=== PATIENT | male | born 1995 | race Caucasian/White ===

== ENCOUNTER 2017-01-01 22:17 | Emergency (ER) | payer MEDICAID ==
[2016-05-22 08:55] VITALS: BMI 25.1
[~2017-01-01 22:17] MED LIST: HYDROCODONE-APA1 TAB PO; SOMA350 MG PO
== END 2017-01-01 22:18 | disposition home or self-care (01) ==
LOC: D.ER 22:17
DX: S91.331A Puncture wound without foreign body, right foot, initial encounter (principal); W45.0XXA Nail entering through skin, initial encounter; Y93.89 Activity, other specified; Y92.019 Unspecified place in single-family (private) house as the place of occurrence of the external cause

== ENCOUNTER 2017-01-21 13:31 | Emergency (ER) | payer MEDICAID ==
[2016-05-22 08:55] VITALS: BMI 25.1
== END 2017-01-21 15:13 | disposition home or self-care (01) ==
LOC: D.ER 13:31
DX: F32.9 Major depressive disorder, single episode, unspecified (principal); F41.9 Anxiety disorder, unspecified; F17.200 Nicotine dependence, unspecified, uncomplicated

== ENCOUNTER 2017-01-23 19:54 | Emergency (ER) | payer MEDICAID ==
[2016-05-22 08:55] VITALS: BMI 25.1
[2017-01-23 20:48] LABS: APPEARANCE CLEAR (CLEAR); BILIRUBIN NEGATIVE (NEGATIVE); COLOR YELLOW (YELLOW); GLUCOSE NEGATIVE (NEGATIVE); KETONE NEGATIVE (NEGATIVE); LEUKOCYTE ESTERASE NEGATIVE (NEGATIVE); NITRITE NEGATIVE (NEGATIVE); PROTEIN NEGATIVE (NEGATIVE); UROBILINOGEN NORMAL (NORMAL)
[2017-01-23 21:03] LABS: UDS - AMPHET NEGATIVE QUAL (NEGATIVE); UDS - BARB NEGATIVE QUAL (NEGATIVE); UDS - BENZO NEGATIVE QUAL (NEGATIVE); UDS - COCAINE NEGATIVE QUAL (NEGATIVE); UDS - METH NEGATIVE QUAL (NEGATIVE); UDS - OPIATE NEGATIVE QUAL (NEGATIVE); UDS - PCP NEGATIVE QUAL (NEGATIVE); UDS - THC POSITIVE QUAL (NEGATIVE)
[2017-01-23 21:05] LABS: BASOPHILS 0.4 % (0-2); EOSINOPHILS 2.7 % (0-7); HEMATOCRIT 47.1 % (42.0-54.0); HEMOGLOBIN 16.2 g/dL (13.5-17.5); IMMATURE GRANULOCYTES 0.4 % (0-5); LYMPHOCYTES 26.8 % (15-50); MCH 32.5 pg (26.0-34.0); MCHC 34.4 g/dL (31.0-37.0); MCV 94.4 fL (80.0-100.0); MEAN PLATELET VOLUME 11.3 fL (7.4-10.4); MONOCYTES 8.3 % (2-11); NEUTROPHILS 61.4 % (40-80); PLATELET COUNT 251 10x3/uL (130-400); RBC 4.99 10x6/uL (4.20-6.10); RDW 11.6 % (11.5-14.5)
[2017-01-23 21:28] LABS: ALBUMIN 4.5 g/dL (3.4-5.0); ALKALINE PHOSPHATASE 94 U/L (46-116); ALT (SGPT) 33 U/L (10-68); BILIRUBIN - TOTAL 0.37 mg/dL (0.2-1.3); CALC OSMOLALITY 284 mosm/kg (275-300); CALCIUM 9.4 mg/dL (8.5-10.1); CARBON DIOXIDE 27.2 mmol/L (21.0-32.0); CHLORIDE - SERUM 108 mmol/L (98-107); GLUCOSE 92 mg/dL (74-106); POTASSIUM - SERUM 4.5 mmol/L (3.5-5.1); SODIUM 143 mmol/L (136-145); UREA NITROGEN 12 mg/dL (7-18); eGFR NON AFRICAN AMERICAN > 90 mL/min (90-120)
== END 2017-01-24 06:46 ==
LOC: D.ER 19:54
PROVIDERS: Family Medicine
DX: R45.851 Suicidal ideations (principal); T14.91 Suicide attempt; T43.592A Poisoning by other antipsychotics and neuroleptics, intentional self-harm, initial encounter; Y92.89 Other specified places as the place of occurrence of the external cause; Y93.89 Activity, other specified

== ENCOUNTER 2019-09-01 08:06 | Inpatient (IN) | payer MEDICAID ==
[2019-09-01] VITALS (17 sets, daily range): BP systolic 122–149; BP diastolic 60–86; BMI 22.9
[~2019-09-01] VITALS: Ht 182.9 cm; Wt 66.6 kg
[2019-09-01 08:38] LABS: BASOPHILS 0.2 % (0-2); EOSINOPHILS 1.1 % (0-7); HEMATOCRIT 42.8 % (42.0-54.0); HEMOGLOBIN 14.3 g/dL (13.5-17.5); IMMATURE GRANULOCYTES 0.2 % (0-5); LYMPHOCYTES 9.9 % (15-50); MCH 32.4 pg (26.0-34.0); MCHC 33.4 g/dL (31.0-37.0); MCV 96.8 fL (80.0-100.0); MEAN PLATELET VOLUME 11.2 fL (7.4-10.4); MONOCYTES 6.5 % (2-11); NEUTROPHILS 82.1 % (40-80); PLATELET COUNT 234 10x3/uL (130-400); RBC 4.42 10x6/uL (4.20-6.10); RDW 12.3 % (11.5-14.5); WBC 17.2 10x3/uL (4.8-10.8)
[2019-09-01 08:39] LABS: APPEARANCE CLEAR (CLEAR); BILIRUBIN NEGATIVE (NEGATIVE); COLOR YELLOW (YELLOW); GLUCOSE NEGATIVE (NEGATIVE); KETONE NEGATIVE (NEGATIVE); NITRITE NEGATIVE (NEGATIVE); PROTEIN NEGATIVE (NEGATIVE); UROBILINOGEN NORMAL (NORMAL)
[2019-09-01 08:45] LABS: UDS - AMPHET NEGATIVE QUAL (NEGATIVE); UDS - BARB NEGATIVE QUAL (NEGATIVE); UDS - BENZO POSITIVE QUAL (NEGATIVE); UDS - COCAINE POSITIVE QUAL (NEGATIVE); UDS - OPIATE NEGATIVE QUAL (NEGATIVE); UDS - PCP NEGATIVE QUAL (NEGATIVE); UDS - THC POSITIVE QUAL (NEGATIVE)
--- NOTE | 2019-09-01 08:51 | NUR ---
[facility] [employer] CONTACTED, THEY ADVISED TO USE ACTIVATED CHARCOAL AT MD DISCRETION, THEY LEANED TOWARDS NOT USING IT DUE TO RISK OF ASPIRATION. DR. DONAHUE NOTIFIED.
[2019-09-01 08:52] LABS: CALC OSMOLALITY 285 mosm/kg (275-300); CARBON DIOXIDE 28.4 mmol/L (21.0-32.0); CHLORIDE - SERUM 107 mmol/L (98-107); CREATININE - SERUM 0.7 mg/dL (0.6-1.3); GLUCOSE 96 mg/dL (74-106); POTASSIUM - SERUM 4.3 mmol/L (3.5-5.1); SODIUM 143 mmol/L (136-145); UREA NITROGEN 14 mg/dL (7-18); eGFR NON AFRICAN AMERICAN > 90 mL/min (90-120)
--- NOTE | 2019-09-01 08:59 | NUR ---
PT IS VERY LETHARGIC. UNABLE TO ASSESS. WILL ATTEMPT TO ASSESS WHEN PT IS MORE ALERT AND ABLE TO ANSWER QUESTIONS.
--- NOTE | 2019-09-01 09:05 | NUR ---
PATIENT WITH SNORING RESPIRATIONS, RESPONDS TO STERNAL RUB WITH MOAN. DR. DONAHUE AT BEDSIDE, PATIENT PREPAIRED FOR INTUBATION. PATIENT SEDATED, ORALLY INTUBATED WITH 7.5MM ETT, PLACEMENT VERIFIED WITH CO2 DETECTOR AND AUSCULATION, CLEAR AND EQUAL BREATH SOUNDS NOTED. ETT TO MECHANICAL VENTILATION WITH INLINE SUCTION. OG TUBE PLACED, VERIFIED WITH 20CC AIRBOLAS, 16FR MARIE CATH PLACED IN BLADDER TO GRAVITY DRAIN, YELLOW URINE RETURN NOTED. DIPROVAN DRIP STARTED FOR SEDATION.
[2019-09-01 09:06] LABS: ALKALINE PHOSPHATASE 78 U/L (46-116); ALT (SGPT) 25 U/L (10-68); AMYLASE - SERUM 49 U/L (25-115); BILIRUBIN - TOTAL 0.43 mg/dL (0.2-1.3); CKMB 2.2 U/L (0.0-3.6); CREATINE KINASE 175 UL (21-232); LIPASE 143 U/L (73-393); MAGNESIUM - SERUM 1.9 mg/dL (1.8-2.4); PROTEIN - SERUM 6.7 g/dL (6.4-8.2)
[2019-09-01 09:08] LABS: TROPONIN-I < 0.017 ng/mL (0.000-0.060)
--- NOTE | 2019-09-01 09:45 | NUR ---
PATIENTS GRANDMOTHER AND AUNT AT BEDSIDE. BOTH LEFT CONTACT NUMBERS WHERE THEY CAN BE REACHED. BANDAR ALMEIDA- GRANDMOTHER [phone] KIKI BAUTISTA- AUNT [phone]
--- NOTE | 2019-09-01 11:30 | NUR ---
REC'D VIA STRETCHER FROM ER NURSE, TRANSFERRED TO ICU BED, ETT IN PLACE AND SECURED, VENT SET TO 60% FIO2, SAT 100%, OGT CLAMPED, PLACE MWNT DCHECED WIT AIR INSUFFLATION, LEFT AC PIV WITH NS AT 200 CC/HR AND PROPOFAL AT 0 MCG, MARIE TO GRAVITY WITH YELLOW DRAINAGE TO BAG, B/L SCD'S PLACED, B/L SOFT WRIST RESTRAINTS IN USE, ASSESSMENT COMPLETED PER FLOWSHEET, AROUSES TO TACTILE STIMULI, VSS, ORAL CARE AND SUCTION COMPLETED, WILL CONTINUE WITH POC.
--- NOTE | 2019-09-01 13:03 | NUR ---
RECIEVED PT FROM CHARGE NURSE. VSS AND WNL. PT SEDATED BUT RESPONDS TO PAINFUL STIMULI. PT INTUBATED AND ON 50%. CRISTELA WRIST RESTRAINTS NOTED. BED ALARM ON. WILL CONT TO FOLLOW POC
--- NOTE | 2019-09-01 13:06 | NUR ---
SCD'D PLACED PER DVT PROTOCAL
--- NOTE | 2019-09-01 15:00 | NUR ---
PT RESTING IN BED, CRISTELA WRIST RESTRAINTS NOTED. PT RESPONDS TO PAINFUL STIMULI. VSS AND WNL. PT ON ASSIST CONTROL VENTILATION. WILL CONT TO FOLLOW POC
--- NOTE | 2019-09-01 17:00 | NUR ---
PT RESTING IN BED, VSS AND WNL. BED ALARM ON. CRISTELA WRIST RESTRAINTS IN PLACE. PT REPOSITIONED. NO SIGNS OF DISTRESS NOTED. WILL CONT TO FOLLOW POC
--- NOTE | 2019-09-01 17:15 | MORECARE ---
CASE MANAGEMENT DISCHARGE SUMMARY PATIENT: KAREN ALMEIDA UNIT: [id number] ADM DATE: 09/01/19 AGE: 23 : [birth year] SEX: M ROOM/BED: D.2307 AUTHOR: JAZMINE RODRIGUEZ PHYSICIAN: REFERRING PHYSICIAN: AJITH THOMSON MD DATE OF SERVICE: 09/01/19 Discharge Plan Patient Name: KAREN ALMEIDA [facility] [facility] 1995 Planned Disposition: Anticipated Discharge Date: Discharge Date: Expected LOS: Initial Reviewer: [email or web address] Initial Review Date: 09/01/2019 Generated: 09/01/19 6:15 pm Comments DCP- Discharge Planning Updated by [email or web address]: Darline Wallace on 09/01/19 4:[address] Patient is sedated on vent after a suicide attempt. CM unable to evaluate for d/c planning @ this time. No family available at this time. Patient will most likely need inpatient psych placement once able to evaluate and medically stable for discharge. CM will continue to follow and assist as needed with discharge planning / needs. Patient Name: KAREN ALMEIDA Page [phone] at 1710 All edits/amendments must be made on the electronic document DICTATION DATE: 09/01/191714 DUE DILIGENCE COORDINATOR: JACK 09/01/191714 RPT#: [id number] DC DATE: STATUS: ADM IN [facility] [address] [place] [address] END OF REPORT
--- NOTE | 2019-09-01 19:00 | NUR ---
SHIFT ASSESSMENT COMPLETE. VS STABLE. NO VISUAL CUES OF DISTRESS NOTED. WILL CONTINUE TO MONITOR.
[2019-09-02] VITALS (24 sets, daily range): BP systolic 99–139; BP diastolic 48–84; BMI 22.9
[2019-09-02 04:26] LABS: BASOPHILS 0.2 % (0-2); EOSINOPHILS 0.6 % (0-7); HEMATOCRIT 41.5 % (42.0-54.0); HEMOGLOBIN 13.5 g/dL (13.5-17.5); IMMATURE GRANULOCYTES 0.3 % (0-5); LYMPHOCYTES 9.3 % (15-50); MCH 32.1 pg (26.0-34.0); MCHC 32.5 g/dL (31.0-37.0); MEAN PLATELET VOLUME 10.8 fL (7.4-10.4); MONOCYTES 8.6 % (2-11); PLATELET COUNT 256 10x3/uL (130-400); RDW 12.5 % (11.5-14.5); WBC 15.9 10x3/uL (4.8-10.8)
[2019-09-02 04:48] LABS: ALBUMIN 3.3 g/dL (3.4-5.0); ALKALINE PHOSPHATASE 89 U/L (46-116); BILIRUBIN - TOTAL 0.52 mg/dL (0.2-1.3); CALCIUM 8.5 mg/dL (8.5-10.1); CARBON DIOXIDE 24.9 mmol/L (21.0-32.0); CHLORIDE - SERUM 111 mmol/L (98-107); CREATININE - SERUM 0.7 mg/dL (0.6-1.3); GLUCOSE 94 mg/dL (74-106); MAGNESIUM - SERUM 1.8 mg/dL (1.8-2.4); PHOSPHOROUS 3.2 mg/dL (2.5-4.9); PROTEIN - SERUM 6.2 g/dL (6.4-8.2); SODIUM 143 mmol/L (136-145); eGFR NON AFRICAN AMERICAN > 90 mL/min (90-120)
[2019-09-02 04:50] LABS: ALT (SGPT) 17 U/L (10-68); CALC OSMOLALITY 283 mosm/kg (275-300); UREA NITROGEN 9 mg/dL (7-18)
[2019-09-02 05:07] LABS: MCV 98.8 fL (80.0-100.0)
--- NOTE | 2019-09-02 07:00 | NUR ---
PT RESTING IN BED, VSS AND WNL. SHIFT ASSESSMENT PERFORMED. MARIE CATHETER DRAINIG AAKASH COLORED URINE VIA GRAVITY. CRISTELA WRIST RESTRAINTS NOTED. ETT TUBE SECURED. WILL CONT TO FOLLOW POC
--- NOTE | 2019-09-02 09:00 | NUR ---
PT RESTING IN BED, VSS AND WNL. PT REPOSITIONED. ETT SECURED. BED ALARM ON. WILL CONT TO FOLLOW POC
--- NOTE | 2019-09-02 09:50 | NUR ---
PT FAMILY HERE AND TOOK PT CLOTHES HOME BUT LEFT HIS SHOES
--- NOTE | 2019-09-02 12:56 | NUR ---
HERE. PT FAILED TRIAL ON CPAP SETTING. PT PLACED BACK ON ASSIST CONTROL.
--- NOTE | 2019-09-02 14:20 | HP ---
PATIENT: KAREN ALMEIDA MEDICAL RECORD: [id number] ACCOUNT: [id number] LOCATION:[facility] D.2307 : [birth year] ADMISSION DATE: 09/01/19 PCP: AJITH THOMSON MD HISTORY AND PHYSICAL EXAMINATION DATE OF ADMISSION: 09/01/2019 CHIEF COMPLAINT: Overdose. HISTORY OF PRESENT ILLNESS: A 23-year-old white male who I have not seen in my office in 4 years, came today via EMS after an overdose in an attempt to end his life. He reportedly took twenty of 2 mg Xanax and seven of 10 mg hydrocodone about 45 minutes prior to arrival. He was having some abdominal discomfort. He was awake and somewhat alert. When he first arrived in the Emergency Department, he became increasingly sedated throughout the stay to the point where they intubated him to protect his airway. He was not given charcoal. This was discussed with poison control. He is intubated on the vent and now in the ICU. PAST MEDICAL AND SURGICAL HISTORY: He had ADHD as a child. He had at least one hospitalization in a mental health facility as a teenager; any other mental health history is really unknown. He has had depression in the past as well. Surgeries; he has a scar on the left shoulder. He is admitted for overdose in an attempt to end his life. Past medical and surgical history again, ADHD, depression. He has had a psych history with at least 1 hospitalization in a mental hospital as a teenager. As previously said, I have not seen him in four years. ALLERGIES: None known. MEDICATIONS: On [facility], it looks like that he has been given twelve [place] 5's on 07/03/2019 and fifteen Tramadol 50 mg on 03/11/2019. HABITS: He smokes cigarettes. He has admitted to marijuana use in the past. According to the ED report, he has done heroin. He drinks alcohol. FAMILY HISTORY: Unknown. SOCIAL HISTORY: Unknown at this time. REVIEW OF SYSTEMS: Unable to be obtained due to him being on a ventilator and sedated. PHYSICAL EXAMINATION: VITAL SIGNS: He has been afebrile, heart rate mostly in the 70s and 80s, on the ventilator, blood pressure was 129/80. GENERAL: He is sedated on the vent. SKIN: Warm and dry. HEENT: Unremarkable. NECK: Supple. No bruit. HEART: Regular rate and rhythm. LUNGS: Clear. ABDOMEN: Soft. EXTREMITIES: No edema. HISTORY AND PHYSICAL [id number] KAREN ALMEIDA LABORATORY DATA: CBC showed a white count of 17,200, hemoglobin 14.3, hematocrit 42.8 with normal differential. Basic metabolic panel is all unremarkable. Liver enzymes were all unremarkable. Troponin less than 0.017. Amylase and lipase are normal. Toxicology positive for benzos, cocaine and THC. No alcohol. Salicylate levels 3.4. Urinalysis is unremarkable. ASSESSMENT: Overdose and depression. PLAN: He is admitted to the ICU on the ventilator. Pulmonary is consulted. Psych is consulted. Other tests or procedures as warranted. TRANSINT:[id number] Voice Confirmation ID: [id number] DOCUMENT ID: [id number] AJITH THOMSON MD at 1420 CC: [id number] DICTATION DATE: 09/02/19 1328 MANAGER OUTPATIENT: 09/02/19 1406 ADM IN [place] [id number] [place] [address]
--- NOTE | 2019-09-02 15:00 | NUR ---
PT RESTING IN BED, VSS AND WNL. ETT SECURED. BED ALARM ON, WILL CONT TO FOLLOW POC
--- NOTE | 2019-09-02 17:00 | NUR ---
PT RESTING IN BED, VSS AND WNL. ETT SECURED. BED ALARM ON. DENIES ANY NEEDS AT THIS TIME, WILL CONT TO FOLLOW POC
--- NOTE | 2019-09-02 18:36 | NUR ---
DIALYSIS NURSE STATES PT BP IS DROPPING AND ASKED NURSE TO PULL ALBUMIN. PT O2 SAT IS 85% ON 10L HIFLO. RESP THERAPY AWARE AND NURSE PAGED
--- NOTE | 2019-09-02 19:00 | NUR ---
REPORT RECEIVED. PT SEDATED, OPENS EYES. NO ACUTE DISTRESS NOTED AT THIS TIME. PT ON VENT, LT AC PIV INFUSING, SEE FLOWSHEET. ASSESSMENT COMPLETED, SEE FLOWSHEET. MARIE IN PLACE, DRAINING GREEN-TINGED URINE. VITALS STABLE, WILL CONTINUE TO MONITOR.
--- NOTE | 2019-09-02 21:00 | NUR ---
PT SEDATED, OPENS EYES. SOFT WRIST RESTRAINTS IN PLACE, NO ACUTE DISTRESS AT THIS TIME. WILL CONTINUE TO MONITOR.
--- NOTE | 2019-09-02 23:00 | NUR ---
PT SEDATED, OPENS EYES. NO ACUTE DISTRESS NOTED AT THIS TIME. REORIENTED NEEDED, WILL CONTINUE TO MONITOR.
[2019-09-03] VITALS (25 sets, daily range): BP systolic 115–134; BP diastolic 61–97
--- NOTE | 2019-09-03 01:00 | NUR ---
PT SEDATED, OPENS EYES, NO ACUTE DISTRESS NOTED AT THIS TIME. WILL CONTINUE TO MONITOR.
--- NOTE | 2019-09-03 02:00 | NUR ---
PT HAD A BOUT OF COUGHING, O2 SAT LOWERED INTO MID 70'S. SUCTIONED AND REPOSITIONED WITH NO INCREASE IN [address] SOFIA ZHANG.
--- NOTE | 2019-09-03 02:30 | NUR ---
RT SPOKE WITH DR BLACK, UPDATED ON STATUS. NEW ORDERS RECEIVED.
--- NOTE | 2019-09-03 03:00 | NUR ---
PT RESTING IN BED, NO ACUTE DISTRESS NOTED AT THIS TIME. WILL CONTINUE TO MONITOR.
[2019-09-03 03:07] LABS: CALC OSMOLALITY 289 mosm/kg (275-300); CALCIUM 8.7 mg/dL (8.5-10.1); CARBON DIOXIDE 27.3 mmol/L (21.0-32.0); CHLORIDE - SERUM 110 mmol/L (98-107); GLUCOSE 120 mg/dL (74-106); POTASSIUM - SERUM 3.6 mmol/L (3.5-5.1); SODIUM 146 mmol/L (136-145); UREA NITROGEN 7 mg/dL (7-18)
[2019-09-03 03:08] LABS: CREATININE - SERUM 0.9 mg/dL (0.6-1.3); eGFR NON AFRICAN AMERICAN > 90 mL/min (90-120)
[2019-09-03 03:10] LABS: HEMATOCRIT 43.7 % (42.0-54.0); HEMOGLOBIN 14.5 g/dL (13.5-17.5); MCH 32.9 pg (26.0-34.0); MCHC 33.2 g/dL (31.0-37.0); MCV 99.1 fL (80.0-100.0); MEAN PLATELET VOLUME 10.7 fL (7.4-10.4); PLATELET COUNT 262 10x3/uL (130-400); RBC 4.41 10x6/uL (4.20-6.10); RDW 12.2 % (11.5-14.5); WBC 25.8 10x3/uL (4.8-10.8)
[2019-09-03 03:36] LABS: LYMPHOCYTES 19 % (15-50); MICROCYTOSIS 1+; MONOCYTES 2 % (2-11); NEUTROPHILS 74 % (40-80); PLATELET ESTIMATE NORMAL
--- NOTE | 2019-09-03 05:00 | NUR ---
PT RESTING SEDATED, OPENS EYES. NO ACUTE DISTRESS NOTED AT THIS TIME.
--- NOTE | 2019-09-03 07:00 | NUR ---
PT RESTING IN BED, VSS AND WNL. SHIFT ASSESSMENT PERFORMED. BED ALARM ON. ETT SECURED. NO SIGNS OF DISTRESS NOTED. WILL CONT TO FOLLOW POC
--- NOTE | 2019-09-03 08:00 | NUR ---
PULMOCARE STARTED AT 15ML/HR
--- NOTE | 2019-09-03 09:00 | NUR ---
PT RESTING IN BED, VSS AND WNL. ORAL CARE PROVIDED. PT REPOSITIONED. NO SIGNS OF DISTRESS NOTED. WILL CONT TO FOLLOW POC
--- NOTE | 2019-09-03 09:08 | NUR ---
NUTRITION F/U PT REMAINS ON VENT. DIPRIVAN @ 30 CC/HR PROVIDING ~800 KCAL/DAY. PULMOCARE AT 15 CC/HR PROVIDING 540 KCAL/DAY. CURRENT TUBE FEED GOAL RATE 45 CC/HR. RD FOLLOWING
--- NOTE | 2019-09-03 11:00 | NUR ---
HERE AND GAVE ORDER TO OBTAIN CONSENT FOR BRONCH. TELEPHONE CONSENT OBTAINED FROM PT GRANDMA AND BLOOD CONSENT OBTAINED FROM GRANDMA WITH SECOND NURSE WITNESS.
--- NOTE | 2019-09-03 12:45 | NUR ---
HERE AND PERFORMED BRONCH. PT TOLERATED WELL. ETT SECURED. WILL CONT TO FOLLOW POC
--- NOTE | 2019-09-03 13:00 | NUR ---
PT TOLERATING TF AT 15ML/HR, INCREASED RATE TO 30ML/HR.
--- NOTE | 2019-09-03 17:14 | MORECARE ---
CASE MANAGEMENT DISCHARGE SUMMARY PATIENT: KAREN ALMEIDA UNIT: [id number] ADM DATE: 09/01/19 AGE: 23 : [birth year] SEX: M ROOM/BED: D.2307 AUTHOR: JAZMINE RODRIGUEZ PHYSICIAN: REFERRING PHYSICIAN: AJITH THOMSON MD DATE OF SERVICE: 09/03/19 Discharge Plan Patient Name: KAREN ALMEIDA [facility] [facility] 1995 Planned Disposition: Anticipated Discharge Date: Discharge Date: Expected LOS: Initial Reviewer: [email or web address] Initial Review Date: 09/01/2019 Generated: 09/03/19 6:14 pm DCP- Discharge Planning Updated by [email or web address]: Darline Wallace on 09/01/19 4:[address] Patient is sedated on vent after a suicide attempt. CM unable to evaluate for d/c planning @ this time. No family available at this time. Patient will most likely need inpatient psych placement once able to evaluate and medically stable for discharge. CM will continue to follow and assist as needed with discharge planning / needs. DCPIA - Discharge Planning Initial Assessment Updated by [email or web address]: Darline Wallace on 09/03/19 5:09 pm * Is the patient Alert and Oriented? Yes * PCP BERTO * Pharmacy [facility] [address] * Preadmission Environment Home Alone * ADLs Independent * Equipment None * Verbal permission to speak to the caregivers and representatives has been obtained from the patient. N/A * Community resources currently utilized None * Additional services required to return to the preadmission environment? No * Can the patient safely return to the preadmission environment? Yes * Has this patient been hospitalized within the prior 30 days at any hospital? No Last DP export: 09/01/19 4:15 p Patient Name: KAREN ALMEIDA Page [phone] at 6924 All edits/amendments must be made on the electronic document DICTATION DATE: 09/03/191713 ASSISTANT PROFESSOR OF LIFE SCIENCES: JACK 09/03/191713 RPT#: [id number] DC DATE: STATUS: ADM IN [place] [address] [place] [address] END OF REPORT
--- NOTE | 2019-09-03 17:23 | MORECARE ---
CASE MANAGEMENT DISCHARGE SUMMARY PATIENT: KAREN ALMEIDA UNIT: [id number] ADM DATE: 09/01/19 AGE: 23 : [birth year] SEX: M ROOM/BED: D.2307 AUTHOR: MICHAEL,DOC PHYSICIAN: REFERRING PHYSICIAN: AJITH THOMSON MD DATE OF SERVICE: 09/03/19 Discharge Plan Patient Name: KAREN ALMEIDA [facility] [facility] 1995 Planned Disposition: Anticipated Discharge Date: Discharge Date: Expected LOS: Initial Reviewer: [email or web address] Initial Review Date: 09/01/2019 Generated: 09/03/19 6:22 pm Comments DCP- Discharge Planning Updated by [email or web address]: Darline Wallace on 09/03/19 4:[address] Patient Name: KAREN ALMEIDA Admission Status: ER Accout number: [id number] Admission Date: 09-01-2019 : 1995 Admission Diagnosis: Attending: AJITH THOMSON Current LOS: 2 Anticipated DC Date: Planned Disposition: Primary Insurance: UNINSURED DISCOUNT PLAN Discharge Planning Comments: CM called and spoke with patients aunt Kyung Orozco [phone]. CM explained role and obtaining verbal consent. Patient lived with his girlfriend up until about a month ago when they broke up. Since that time patient has just been staying with friends here and there where he is independent with his care. Denies any discharge needs at this time. Patient is currently still on vent at this time.CM will continue to follow and assist as needed with discharge planning / needs. Bottom Cementer: Darline Wallace DCP- Discharge Planning Updated by [email or web address]: Darline Wallace on 09/01/19 4:[address] Patient is sedated on vent after a suicide attempt. CM unable to evaluate for d/c planning @ this time. No family available at this time. Patient will most likely need inpatient psych placement once able to evaluate and medically stable for discharge. CM will continue to follow and assist as needed with discharge planning / needs. DCPIA - Discharge Planning Initial Assessment Updated by [email or web address]: Darline Wallace on 09/03/19 5:09 pm * Is the patient Alert and Oriented? Yes * PCP BERTO * Pharmacy [facility] * Preadmission Environment Home Alone * ADLs Independent * Equipment None * Verbal permission to speak to the caregivers and representatives has been obtained from the patient. N/A * Community resources currently utilized None * Additional services required to return to the preadmission environment? No * Can the patient safely return to the preadmission environment? Yes * Has this patient been hospitalized within the prior 30 days at any hospital? No Last DP export: 09/03/19 4:14 Patient Name: KAREN ALMEIDA Page [phone] at 1723 All edits/amendments must be made on the electronic document DICTATION DATE: 09/03/191721 REALTIME CAPTIONER: JACK 09/03/191721 RPT#: [id number] DC DATE: STATUS: ADM IN [facility] [address] [place] [address] END OF REPORT
--- NOTE | 2019-09-03 17:42 | NUR ---
PT TOLERATING TF AT 30ML/HR, INCREASED TF TO 45ML/HR. WILL CONT TO FOLLOW POC
--- NOTE | 2019-09-03 18:06 | NUR ---
PT RESTING IN BED, VSS AND WNL. BED ALARM ON. ETT SECURED. WILL CONT TO FOLLOW POC
--- NOTE | 2019-09-03 19:00 | NUR ---
REPORT RECEIVED. PT SEDATED, OPENS EYES. DISORIENTED TO TIME AND SITUATION, REORIENTED NEEDED. PT INTUBATED, ON VENT. MARIE IN PLACE DRAINING GREEN-TINGED URINE. SOFT WRIST RESTRAINTS IN PLACE TO BOTH WRISTS. RT WRIST PIV TO SL, LT AC PIV INFUSING, SEE FLOWSHEET. ASSESSMENT COMPLETED, SEE FLOWSHEET. NO ACUTE DISTRESS NOTED AT THIS TIME, WILL CONTINUE TO MONITOR.
--- NOTE | 2019-09-03 21:00 | NUR ---
PT SEDATED, OPENS EYES. ORAL CARE PROVIDED, NO ACUTE DISTRESS NOTED. WILL CONTINUE TO MONITOR.
--- NOTE | 2019-09-03 23:00 | NUR ---
PT SEDATED, FOLLOWS COMMANDS. PT PRODUCING SMALL AMOUNT OF THIN SECRETIONS, SUCTIONED NEEDED. PT OCCASIONALLY HAS SHORT COUGHING FITS. WILL CONTINUE TO MONITOR.
[2019-09-04] VITALS (24 sets, daily range): BP systolic 115–135; BP diastolic 58–74
--- NOTE | 2019-09-04 01:00 | NUR ---
PT SEDATED, FOLLOWS COMMANDS. NO ACUTE DISTRESS NOTED AT THIS TIME. WILL CONTINUE TO MONITOR.
--- NOTE | 2019-09-04 03:00 | NUR ---
PT SEDATED, FOLLOWS COMMANDS. CONTINUES TO PRODUCE THICK SPUTUM, SUCTIONED NEEDED. NO ACUTE DISTRESS NOTED. WILL CONTINUE TO MONITOR.
[2019-09-04 04:31] LABS: BASOPHILS 0.1 % (0-2); EOSINOPHILS 1.9 % (0-7); HEMATOCRIT 38.5 % (42.0-54.0); HEMOGLOBIN 12.5 g/dL (13.5-17.5); IMMATURE GRANULOCYTES 0.3 % (0-5); LYMPHOCYTES 10.8 % (15-50); MCH 32.6 pg (26.0-34.0); MCHC 32.5 g/dL (31.0-37.0); MCV 100.3 fL (80.0-100.0); MEAN PLATELET VOLUME 11.3 fL (7.4-10.4); MONOCYTES 7.4 % (2-11); NEUTROPHILS 79.5 % (40-80); PLATELET COUNT 228 10x3/uL (130-400); RBC 3.84 10x6/uL (4.20-6.10); RDW 12.7 % (11.5-14.5)
[2019-09-04 04:36] LABS: WBC 15.3 10x3/uL (4.8-10.8)
[2019-09-04 04:54] LABS: ALBUMIN 2.7 g/dL (3.4-5.0); ALKALINE PHOSPHATASE 93 U/L (46-116); ALT (SGPT) 21 U/L (10-68); BILIRUBIN - TOTAL 0.39 mg/dL (0.2-1.3); CALCIUM 8.5 mg/dL (8.5-10.1); CARBON DIOXIDE 25.5 mmol/L (21.0-32.0); CHLORIDE - SERUM 112 mmol/L (98-107); CREATININE - SERUM 0.7 mg/dL (0.6-1.3); GLUCOSE 101 mg/dL (74-106); MAGNESIUM - SERUM 1.8 mg/dL (1.8-2.4); POTASSIUM - SERUM 3.8 mmol/L (3.5-5.1); SODIUM 146 mmol/L (136-145); TRIGLYCERIDE 107 mg/dL (30-200); eGFR NON AFRICAN AMERICAN > 90 mL/min (90-120)
--- NOTE | 2019-09-04 05:00 | NUR ---
PT SEDATED, FOLLOWS COMMANDS. NO ACUTE DISTRESS NOTED. WILL CONTINUE TO MONITOR.
[2019-09-04 05:02] LABS: CALC OSMOLALITY 289 mosm/kg (275-300); UREA NITROGEN 10 mg/dL (7-18)
--- NOTE | 2019-09-04 08:19 | NUR ---
UP IN BED ON VENT AT THIS TIME. VSS. NO ACUTE DISTRESS NOTED. PT OPENS EYES AND FOLLOWS COMMANDS. COUGHING AND AGGITATION NOTED OVER VENT. TURNED Q2H, ORAL CARE PROVIDED Q2H. WILL CONTINUE PLAN OF CARE.
--- NOTE | 2019-09-04 10:02 | NUR ---
LYING IN BED ON VENT AT THIS TIME. FAMILY AT BEDSIDE; CODEWORD WAS PROVIDED BY FAMILY. NO ACUTE DISTRESS NOTED. VSS. WILL CONTINUE PLAN OF CARE.
--- NOTE | 2019-09-04 12:42 | NUR ---
NO ACUTE DISTRESS NOTED. NO CHANGE. VSS. TURNED Q2H. ORAL CARE PROVIDED Q2H. WILL CONTINUE PLAN OF CARE.
--- NOTE | 2019-09-04 14:43 | NUR ---
COUGHING OVER VENT NOTED AT THIS TIME. SUCTION PROVIDED ALONG WITH ORAL CARE. PT BEGINNING TO CALM DOWN. OPENS EYES AND FOLLOWS COMMANDS. NO ACUTE DISTRESS NOTED. WILL CONTINUE PLAN OF CARE.
--- NOTE | 2019-09-04 15:55 | NUR ---
OGT RESIDUAL NOTED AT 5ML.
[2019-09-04 16:08] LABS: AFB SPECIMEN PROCESSING Concentration (())
--- NOTE | 2019-09-04 17:40 | NUR ---
CHG BATH GIVEN AT THIS TIME WITH TOTAL LINEN CHANGE. VSS. ORAL CARE PROVIDED. NO ACUTE DISTRESS NOTED. WILL CONTINUE PLAN OF CARE.
--- NOTE | 2019-09-04 19:00 | NUR ---
SHIFT ASSESSMENT COMPLETE. VS STABLE. NO VISUAL CUES OF DISTRESS NOTED. WILL CONTINUE TO MONITOR.
--- NOTE | 2019-09-04 21:00 | NUR ---
VS STABLE. NO VISUAL CUES OF DISTRESS NOTED. WILL CONTINUE TO MONITOR.
--- NOTE | 2019-09-04 23:00 | NUR ---
VS STABLE. NO VISUAL CUES OF DISTRESS NOTED. WILL CONTINUE TO MONITOR.
[2019-09-05] VITALS (23 sets, daily range): BP systolic 111–135; BP diastolic 51–73
--- NOTE | 2019-09-05 01:00 | NUR ---
VS STABLE. NO VISUAL CUES OF DISTRESS NOTED. WILL CONTINUE TO MONITOR.
--- NOTE | 2019-09-05 03:00 | NUR ---
VS STABLE. NO VISUAL CUES OF DISTRESS NOTED. WILL CONTINUE TO MONITOR.
[2019-09-05 03:33] LABS: BASOPHILS 0.2 % (0-2); EOSINOPHILS 4.3 % (0-7); HEMATOCRIT 36.8 % (42.0-54.0); HEMOGLOBIN 11.8 g/dL (13.5-17.5); IMMATURE GRANULOCYTES 0.3 % (0-5); LYMPHOCYTES 11.6 % (15-50); MCH 31.9 pg (26.0-34.0); MCHC 32.1 g/dL (31.0-37.0); MCV 99.5 fL (80.0-100.0); MEAN PLATELET VOLUME 10.6 fL (7.4-10.4); MONOCYTES 8.7 % (2-11); NEUTROPHILS 74.9 % (40-80); PLATELET COUNT 234 10x3/uL (130-400); RDW 12.8 % (11.5-14.5); WBC 11.5 10x3/uL (4.8-10.8)
[2019-09-05 04:05] LABS: CALC OSMOLALITY 292 mosm/kg (275-300); CALCIUM 8.6 mg/dL (8.5-10.1); CARBON DIOXIDE 27.1 mmol/L (21.0-32.0); CHLORIDE - SERUM 115 mmol/L (98-107); CREATININE - SERUM 0.6 mg/dL (0.6-1.3); GLUCOSE 107 mg/dL (74-106); POTASSIUM - SERUM 4.3 mmol/L (3.5-5.1); SODIUM 148 mmol/L (136-145); UREA NITROGEN 10 mg/dL (7-18); eGFR NON AFRICAN AMERICAN > 90 mL/min (90-120)
--- NOTE | 2019-09-05 05:00 | NUR ---
VS STABLE. NO VISUAL CUES OF DISTRESS NOTED. WILL CONTINUE TO MONITOR.
--- NOTE | 2019-09-05 07:33 | NUR ---
PT TURNED AND MOUTH CARE COMPLETED. VENT SETTINGS A/C 14, 50%FIO2, PEEP 7. DIPROVAN FOR SEDATION. 70MCG/KG/MIN. PT IS SEDATED.
--- NOTE | 2019-09-05 09:36 | NUR ---
NUTRITION F/U CHART REVIEWED, PT REMAINS SEDATED ON VENT. DIPRIVAN @ 32 CC/HR PROVIDING ~845 KCAL/DAY. PULMOCARE AT GOAL RATE 45 CC/HR PROVIDING 1620 KCAL, 68 GM PROTEIN PER DAY. WILL CONTINUE TO PROVIDE PULMOCARE, MONITOR PT PROGRESS. RD FOLLOWING
--- NOTE | 2019-09-05 10:09 | NUR ---
NUTRITION F/U PT WITH NS @ 50 CC/HR. NOW OFF. RECOMMEND INCREASING TUBE FLUSH FROM 50 CC Q 2 HOURS TO 100 CC Q 2 HOURS UNTIL IV FLUIDS RESUMED. RD FOLLOWING
--- NOTE | 2019-09-05 10:29 | NUR ---
L AC OUT. SITE 18G TO LWRIST X 2 IV SITES.
--- NOTE | 2019-09-05 12:10 | NUR ---
DR BLACK HERE. CONCENT RECEIVED FROM PTS GRANDMOTHER FOR BRONCHOSCOPY. PT BATHED. PT COUGHING AND REQUIRING FREQ SUCTIONING THISK YELLOW SPUTUM.
[2019-09-05 13:10] LABS: FUNGUS STAIN Final report (())
--- NOTE | 2019-09-05 13:26 | NUR ---
BRONCHOSCOPY COMPLETED AT BS IN ICU DEPT BY DR BLACK. PT ELIZABETH WELL WITH DINAH FOR SEDATION. CONCENT ON CHART. REPORTED TO FAMILY BEFOR AND AFTER PROCEDURE. DR BLACK SPOKE TO FAMILY AT BS WELL.
--- NOTE | 2019-09-05 13:37 | NUR ---
0730- ADVANCED OGT. AUSCULTATED AIR BOLUS FOR PLACEMENT.
--- NOTE | 2019-09-05 19:00 | NUR ---
REPORT RECEIVED. INITIAL ASSESSMENT COMPLETE. DESPITE MAX DOSE OF DIPRIVAN FOR SEDATION PT AWAKE AND ALERT ABLE TO MAKE SMALL POSITION CHANGES NODS HEAD APPROPRIATELY TO QUESTIONS NODS HEAD NO WHEN ASKED IF HE WAS AWARE OF WHERE HE WAS AND WHAT HAD HAPPENED. REORIENTED TO PLACE TIME AND SITUATION. PT FOLLOWS COMMANDS NODS HEAD NO TO QUESTION OF PAIN. PT ORALLY INTUBATED SEE RESP THERAPY NOTES AND FLOWSHEETS. O2 SAT 97%. SUCTIONED PER RT ORALLY AND VIA ETT. BREATH SOUNDS COARSE RHONCI AND CRACKLES COPIOUS SECRETIONS VIA ETT. CM READING SB-SR WITHOUT ECTOPY ALARMS ON AND AUDIBLE. VSS WILL CONTINUE TO MONITOR.
--- NOTE | 2019-09-05 20:10 | NUR ---
PT VENT ALARMING INTO CHECK PT ATTEMPTING TO SIT UP AND STRAINING AGAINST RESTRAINTS TRYING TO BEND TO REACH ETT SEVERE COUGHING SPELL AND O2 SAT 88%. CALLED FOR JAGUAR RT TO COME ASSIST DUE TO SEVERE COUGH SOUNDING LIKE CUFF LEAKING COUGHING SOUNDS LOUD AROUND CUFF. COPIOUS THICK WHITE ZAMARRIPA SECRETIONS ORALLY AND VIA ETT. SEVERE ANXIETY MEDICATED WITH PRN VERSED AFTER SUCTIONED FOR ANXIETY SINCE GALLO MAXED OUT.
--- NOTE | 2019-09-05 20:20 | NUR ---
MED EFFECTIVE PT SEDATED WITH EYES CLOSED AND O2 SAT BACK UP TO 98%. WILL CONTINUE TO MONITOR
--- NOTE | 2019-09-05 21:00 | NUR ---
CHECKING ON PATIENT SEDATED VSS REPOSITIONED CPOC
--- NOTE | 2019-09-05 23:00 | NUR ---
REASSESSMENT MADE. PT SEDATED NO DISTRESS AT THIS TIME. VSS CPOC REPOSITIONED FOR COMFORT
[2019-09-06] VITALS (24 sets, daily range): BP systolic 103–127; BP diastolic 55–72
--- NOTE | 2019-09-06 00:20 | NUR ---
PT COUGHING AGAIN AND ANXIOUS O2 SAT 95% PT FIGHTING VENT MEDICATED WITH PRN MED WILL MONITOR
--- NOTE | 2019-09-06 01:00 | NUR ---
VERSED EFFECTIVE PT SEDATED OW SAT 97% CPOC
[2019-09-06 02:57] LABS: BASOPHILS 0.3 % (0-2); EOSINOPHILS 4.6 % (0-7); HEMATOCRIT 36.8 % (42.0-54.0); HEMOGLOBIN 12.3 g/dL (13.5-17.5); IMMATURE GRANULOCYTES 0.2 % (0-5); MCH 32.5 pg (26.0-34.0); MCHC 33.4 g/dL (31.0-37.0); MCV 97.4 fL (80.0-100.0); MEAN PLATELET VOLUME 10.6 fL (7.4-10.4); MONOCYTES 9.9 % (2-11); PLATELET COUNT 270 10x3/uL (130-400); RBC 3.78 10x6/uL (4.20-6.10); RDW 12.6 % (11.5-14.5); WBC 10.9 10x3/uL (4.8-10.8)
--- NOTE | 2019-09-06 03:00 | NUR ---
REASSESSMENT COMPLETE ORAL CARE DONE REPOSITIONED FOR COMFORT VSS CPOC
[2019-09-06 03:07] LABS: CALC OSMOLALITY 285 mosm/kg (275-300); CALCIUM 8.7 mg/dL (8.5-10.1); CARBON DIOXIDE 25.1 mmol/L (21.0-32.0); CHLORIDE - SERUM 111 mmol/L (98-107); CREATININE - SERUM 0.6 mg/dL (0.6-1.3); GLUCOSE 96 mg/dL (74-106); POTASSIUM - SERUM 4.3 mmol/L (3.5-5.1); SODIUM 144 mmol/L (136-145); UREA NITROGEN 11 mg/dL (7-18); eGFR NON AFRICAN AMERICAN > 90 mL/min (90-120)
--- NOTE | 2019-09-06 05:00 | NUR ---
PARTIAL CHG BATH
--- NOTE | 2019-09-06 09:01 | NUR ---
hr 58bpm on cm. T WAVE INVERSION NOTED ON CM. CALLED DR THOMSON AND CALLED DR BERNAL. ST CABRAL HERE. REC'D NEW ORDERS.
[2019-09-06 10:37] LABS: CKMB 0.4 U/L (0.0-3.6); CREATINE KINASE 85 UL (21-232); TROPONIN-I < 0.017 ng/mL (0.000-0.060)
--- NOTE | 2019-09-06 14:48 | NUR ---
SBT STARTED. DINAH OFF.
[2019-09-06 15:35] LABS: CKMB 0.9 U/L (0.0-3.6); CREATINE KINASE 113 UL (21-232); TROPONIN-I 0.023 ng/mL (0.000-0.060)
--- NOTE | 2019-09-06 19:00 | NUR ---
REPORT RECEIVED. INITIAL ASSESSMENT COMPLETE. CM READING SB-SR WITHOUT ECTOPY ALARMS AND AUDIBLE. SEDATION VIA FENTANYL AND DIPRIVAN. VSS CPOC
[2019-09-06 21:16] LABS: CKMB 0.9 U/L (0.0-3.6); CREATINE KINASE 89 UL (21-232); TROPONIN-I 0.023 ng/mL (0.000-0.060)
--- NOTE | 2019-09-06 23:00 | NUR ---
REASSESSMENT MADE SEE FLOWSHEET PT REPOSITIONED FOR COMFORT CPOC
[2019-09-07] VITALS (24 sets, daily range): BP systolic 97–146; BP diastolic 45–88
--- NOTE | 2019-09-07 02:00 | NUR ---
FOUL SMELL NOTED IN ROOM COMPLETE BATH AND SHAMPOO HAIR AND FACIAL HAIR. COMPLETE CHG AND COMPLETE LINEN CHANGE. WHILE TURNING PT TO CLEAN BACK PT HAD COUGHING SPELL HEAVY COUGHING COPIOUS THICK WHITE PLUGS VIA ETT AND ORALLY. PT COUGHING AND GAGGING ON ETT PT BAGGED AND LAVAGED PER RT WITH PT O2 SAT SLOWLY BACK UP TO 90'S. ASKED PT IF HE HAD ANY DENTAL PROBLEMS HE NODDED HEAD YES, ASKED IF HE HAD A BAD TOOTH HE NODDED HEAD YES NODS HEAD YES TO TOP RIGHT SIDE WHERE. ORAL CARE WITH CHLORHEXADINE AND WILL PASS ON IN REPORT ABOUT FOUL ODOR ORALLY AND BAD TOOTH.
--- NOTE | 2019-09-07 03:00 | NUR ---
PT O2 SAT BACK UP TO 95% DID TAKE AWHILE AFTER COUGHING SPELL AND COPIOUS SECRETIONS SUCTIONED VIA ORAL AND ETT. CPOC WILL CONTINUE TO MONITOR
--- NOTE | 2019-09-07 05:00 | NUR ---
PT RESTING QUIETLY VSS NO DISTRESS NOTED CPOC
--- NOTE | 2019-09-07 09:28 | NUR ---
PT TURNED AND MOUTH CARE. SEDATED ON VENT.
--- NOTE | 2019-09-07 10:23 | NUR ---
DR BERNAL HERE ON ROUNDS.
--- NOTE | 2019-09-07 13:42 | NUR ---
BRONCOSCOPY DONE BY DR BLACK. CONCENT ON CHART. DR BLACK SPOKE TO FAMILY AT BS.
--- NOTE | 2019-09-07 15:38 | NUR ---
PT AWAKENS WITH TURNS AND FOLLOWS COMMAND. PT STARTS TO COUGH AND VIOLENTLY GAGING. SEDATION TITRATED UP.
--- NOTE | 2019-09-07 19:00 | NUR ---
REPORT RECEIVED. PT SEDATED, FOLLOWS COMMANDS. INTUBATED ON VENT, NO ACUTE DISTRESS NOTED AT THIS TIME. MARIE IN PLACE DRAINING DARK URINE. LT WRIST PIV X2 INFUSING, SEE IV FLOWSHEET. SOFT WRIST RESTRAINTS ON BOTH WRISTS. SCD'S IN PLACE, PT IN DROPLET ISOLATION. VITALS STABLE, WILL CONTINUE TO MONITOR.
--- NOTE | 2019-09-07 21:00 | NUR ---
PT SEDATED, FOLLOWS COMMANDS. VITALS STABLE, NO ACUTE DISTRESS NOTED. WILL CONTINUE TO MONITOR.
--- NOTE | 2019-09-07 23:00 | NUR ---
PT SEDATED, FOLLOWS COMMANDS. NO ACUTE DISTRESS NOTED, WILL CONTINUE TO MONITOR.
[2019-09-08] VITALS (24 sets, daily range): BP systolic 98–133; BP diastolic 41–67
--- NOTE | 2019-09-08 01:00 | NUR ---
PT SEDATED, FOLLOWS COMMANDS. NO ACUTE DISTRESS NOTED, WILL CONTINUE TO MONITOR.
--- NOTE | 2019-09-08 03:00 | NUR ---
PT SEDATED, FOLLOWS COMMANDS. NO ACUTE DISTRESS NOTED, WILL CONTINUE TO MONITOR.
[2019-09-08 04:02] LABS: BASOPHILS 0.2 % (0-2); EOSINOPHILS 3.2 % (0-7); HEMATOCRIT 38.2 % (42.0-54.0); HEMOGLOBIN 12.6 g/dL (13.5-17.5); IMMATURE GRANULOCYTES 1.4 % (0-5); LYMPHOCYTES 13.9 % (15-50); MCH 32.3 pg (26.0-34.0); MCV 97.9 fL (80.0-100.0); MEAN PLATELET VOLUME 10.4 fL (7.4-10.4); MONOCYTES 11.1 % (2-11); NEUTROPHILS 70.2 % (40-80); PLATELET COUNT 291 10x3/uL (130-400); RDW 12.1 % (11.5-14.5)
[2019-09-08 04:28] LABS: ALBUMIN 2.5 g/dL (3.4-5.0); ALKALINE PHOSPHATASE 148 U/L (46-116); ALT (SGPT) 64 U/L (10-68); BILIRUBIN - TOTAL 0.52 mg/dL (0.2-1.3); CALC OSMOLALITY 276 mosm/kg (275-300); CALCIUM 8.5 mg/dL (8.5-10.1); CARBON DIOXIDE 29.7 mmol/L (21.0-32.0); CHLORIDE - SERUM 104 mmol/L (98-107); CREATININE - SERUM 0.8 mg/dL (0.6-1.3); GLUCOSE 92 mg/dL (74-106); POTASSIUM - SERUM 4.2 mmol/L (3.5-5.1); PROTEIN - SERUM 5.8 g/dL (6.4-8.2); SODIUM 138 mmol/L (136-145); UREA NITROGEN 16 mg/dL (7-18); eGFR NON AFRICAN AMERICAN > 90 mL/min (90-120)
--- NOTE | 2019-09-08 05:00 | NUR ---
PT SEDATED, FOLLOWS COMMANDS. NO ACUTE DISTRESS NOTED. WILL CONTINUE TO MONITOR.
--- NOTE | 2019-09-08 07:00 | NUR ---
REPORT RECEIVED. PT ON DROPLET PRECAUTIONS. ON VENT. PT IN RESTRAINTS. HAS MARIE. HAS IV TO LEFT WRIST AND LEFT FOREARM. SEE IV FLOWSHEET FOR FLUIDS. PT HAS PULMOCARE INFUSING AT 45ML/HR THROUGH OGT WHICH IS GOAL RATE. PT HAS RASH TO BACK. VSS. WILL CONTINUE TO MONITOR.
--- NOTE | 2019-09-08 09:31 | NUR ---
FAMILY AT BEDSIDE. UPDATED. PT RESTING QUIETLY. VSS. WILL CONTINUE TO MONITOR.
--- NOTE | 2019-09-08 09:51 | NUR ---
NUTRITION F/U CHART REVIEWED. PT REMAINS IN ISOLATION. IV FLUIDS RESUMED AT 75 CC/HR. TOLERATING PULMOCARE AT 45 CC/HR WITH 100 CC H2O FLUSH Q 2 HOURS. RECOMMEND DECREASE TUBE FEED FLUSH TO [address] FOLLOWING
--- NOTE | 2019-09-08 11:07 | NUR ---
PT RESTING COMFORTABLY WITH EYES CLOSED. VSS. WILL CONTINUE TO MONITOR.
--- NOTE | 2019-09-08 13:00 | NUR ---
PT REPOSITIONED AND SUCTIONED. VSS. WILL CONTINUE TO MONITOR.
--- NOTE | 2019-09-08 15:22 | NUR ---
FENTANYL CHANGED OUT. PT WATCHING TV. VSS. REASSESSMENT DONE. WILL CONTINUE TO MONITOR.
--- NOTE | 2019-09-08 18:00 | NUR ---
TUBE FEEDING CHANGED OUT. PT COUGHING AND AWAKE. SUCTIONED. REPOSITIONED. WILL CONTINUE TO MONITOR.
--- NOTE | 2019-09-08 19:15 | NUR ---
REPORT RECEIVED. ASSESSMENT COMPLETE PER FLOW SHEET. VSS. PT RESTING COMFORTABLY. ORAL ENDOTRACH CARE ADM. REPOSITIONED FOR COMFORT. WILL CONTINUE TO MONITOR
--- NOTE | 2019-09-08 20:30 | NUR ---
UPDATE GIVEN TO FAMILY VIA PHONE, PASSWORD PROVIDED.
--- NOTE | 2019-09-08 21:30 | NUR ---
HS MEDS GIVEN. PT REPOSITIONED WITH PROMINENCES BRIDGED. ORAL CARE PROVIDED. PT FOLLOWS SIMPLE COMMANDS AND NODS TO YES/NO QUESTIONS. VSS, NO S/S OF ACUTE DISTRESS. CALL LIGHT WITHIN PT REACH, ROOM VISIBLE FROM NURSES STATION. CPOC.
--- NOTE | 2019-09-08 23:30 | NUR ---
REASSESSMENT COMPLETE, NO NEW CHANGES AT THIS TIME. PT FOLLOWS COMMANDS AND NODS TO QUESTIONS. REPOSITIONED WITH PROMINENCES BRIDGED. ORAL CARE PROVIDED. CALL LIGHT WITHIN PT REACH. ROOM VISIBLE FROM NURSES STATION. CPOC.
[2019-09-09] VITALS (24 sets, daily range): BP systolic 103–168; BP diastolic 48–102
--- NOTE | 2019-09-09 02:22 | NUR ---
COMPLETE CHG BATH AND LINEN CHANGE PROVIDED. ORAL CARE COMPLETE. PROMINENCES BRIDGED. VSS, CPOC.
--- NOTE | 2019-09-09 03:30 | NUR ---
REASSESSMENT COMPLETE, NO NEW CHANGES AT THIS TIME. PT REPOSITIONED WITH PROMINENCES BRIDGED. RESTING COMFORTABLY AT THIS TIME. VSS, CPOC.
[2019-09-09 04:51] LABS: BASOPHILS 0.4 % (0-2); EOSINOPHILS 3.2 % (0-7); HEMATOCRIT 37.6 % (42.0-54.0); HEMOGLOBIN 12.5 g/dL (13.5-17.5); IMMATURE GRANULOCYTES 3.6 % (0-5); LYMPHOCYTES 11.8 % (15-50); MCH 32.1 pg (26.0-34.0); MCHC 33.2 g/dL (31.0-37.0); MCV 96.7 fL (80.0-100.0); MEAN PLATELET VOLUME 10.6 fL (7.4-10.4); MONOCYTES 10.4 % (2-11); NEUTROPHILS 70.6 % (40-80); PLATELET COUNT 333 10x3/uL (130-400); RBC 3.89 10x6/uL (4.20-6.10); RDW 11.7 % (11.5-14.5); WBC 11.8 10x3/uL (4.8-10.8)
[2019-09-09 05:04] LABS: CALC OSMOLALITY 277 mosm/kg (275-300); CALCIUM 8.3 mg/dL (8.5-10.1); CARBON DIOXIDE 29.6 mmol/L (21.0-32.0); CHLORIDE - SERUM 104 mmol/L (98-107); CREATININE - SERUM 0.8 mg/dL (0.6-1.3); GLUCOSE 98 mg/dL (74-106); POTASSIUM - SERUM 3.9 mmol/L (3.5-5.1); SODIUM 139 mmol/L (136-145); UREA NITROGEN 13 mg/dL (7-18); eGFR NON AFRICAN AMERICAN > 90 mL/min (90-120)
--- NOTE | 2019-09-09 05:50 | NUR ---
PT REPOSITIONED WITH PROMINENCES BRIDGED. ORAL CARE PROVIDED. VSS, NO S/S OF ACUTE DISTRESS. FOLLOWS COMMANDS. CALL LIGHT WITHIN PT REACH. ROOM VISIBLE FROM NURSES STATION. CPOC.
--- NOTE | 2019-09-09 07:15 | NUR ---
REPORT RECEIVED. PT ON VENT; SETTINGS PER RT. PT HAS FRANK. IN RESTRAINTS. IVS TO LEFT WRIST AND LEFT FOREARM. PROPOFOL, FENTANYL, AND 1/2 NS INFUSING. VSS. WILL CONTINUE TO MONITOR.
--- NOTE | 2019-09-09 09:08 | NUR ---
NUTRITION F/U PT REMAINS ON VENT. TOLERATING PULMOCARE AT GOAL RATE 45 CC/HR. TUBE FEED FLUSH DECREASED TO 50 CC Q 2 HOURS. WILL CONTINUE TO PROVIDE PULMOCARE, MONITOR PT PROGRESS. RD FOLLOWING
--- NOTE | 2019-09-09 09:48 | NUR ---
PER RT, DR BLACK STATED HIS CHEST XR LOOKED WORSE AND PLANS TO BRONCH PT. UPDATED HIS FAMILY (GRANDMOTHER AND AUNT). VERBAL CONSENT GIVEN.
[2019-09-09 11:09] LABS: FUNGUS CULTURE RESULT 1 Candida albicans (())
--- NOTE | 2019-09-09 11:15 | NUR ---
NOTED OGT HAD COME OUT OF PT'S MOUTH SOME. READVANCED BACK INTO STOMACH. AUSCULTATED PLACEMENT. PT SUCTIONED. VSS. WILL CONTINUE TO MONITOR.
[2019-09-09 12:50] LABS: BASOPHILS 0.3 % (0-2); HEMATOCRIT 34.9 % (42.0-54.0); HEMOGLOBIN 11.7 g/dL (13.5-17.5); IMMATURE GRANULOCYTES 3.7 % (0-5); LYMPHOCYTES 13.8 % (15-50); MCH 32.1 pg (26.0-34.0); MCHC 33.5 g/dL (31.0-37.0); MCV 95.6 fL (80.0-100.0); MEAN PLATELET VOLUME 10.1 fL (7.4-10.4); MONOCYTES 10.3 % (2-11); NEUTROPHILS 68.9 % (40-80); PLATELET COUNT 318 10x3/uL (130-400); RBC 3.65 10x6/uL (4.20-6.10); RDW 11.7 % (11.5-14.5); WBC 11.9 10x3/uL (4.8-10.8)
--- NOTE | 2019-09-09 13:07 | EC ---
PATIENT:REED ALMEIDASUZI Lainez DATE OF SERVICE: 09/01/19 SEX: M MEDICAL RECORD: [id number] DATE OF : [birth year] LOCATION:[facility] AGE OF PATIENT: 23 ADMISSION DATE: 09/01/19 REFERRING PHYSICIAN: INTERPRETING PHYSICIAN: KAREN BERNAL MD ECHOCARDIOGRAM REPORT ECHO CHARGES 4 ECHO COMPLETE Date: 09/06/19 CLINICAL DIAGNOSIS: ABN EKG CHANGES, / DRUG OVERDOSE ECHOCARDIOGRAPHIC MEASUREMENTS (adult normal given) AC root (d.<3.7cm) 2.7 cm LV Septum d (<1.2 cm> 1.4 cm Valve Excursion 1.4 cm LV Septum (systole) 1.6 cm Left Atria (s.<4.0cm> 3.2 cm LVPW d(<1.2cm) 1.6 cm RV (d.<2.3cm) 3.6 cm LVPW (sytole) 1.8 cm LV diastole(<5.6CM) 4.6 cm MV E-F(>70mm/sec) cm LV systole 2.9 cm LVOT Diameter 2.2 cm MV exc.(>10mm) 1.8 cm Est.ejection fraction (50-75%) % DOPPLER: LVIT cm/sec A 61.0 cm/sec E 108.0 cm/sec LA cm/sec RVSP 23 mmHg LVOT 90 cm/sec AOP1/2T m/s Asc. Ao 139 cm/sec RVOT 135 cm/sec RA cm/sec PA 147 cm/sec AV Gradient Peak 7.70 mmHg AV Mean 4.46 mmHg AV Area 1.8 cm MV Gradient Peak 5.60 mmHg MV Mean 1.68 mmHg MV Area cm COMMENTS: Farm Planner: 2 REBEKAH HARPER Pediatric Neuropsychologist: 3 Dr. Lainez TAPE# PACS Pericardial Effusion N DATE OF SERVICE: Adequate 2D, color flow, spectral Doppler, MMode Mild LVH. LV internal dimension is normal. Wall motion is normal. EF is greater than or equal to 55%. Aortic valve is tricuspid. No evidence of stenosis by Doppler interrogation. Left atrium is normal at 3.2 cm. Mitral valve shows no prolapse. Trace MR. Right-sided chambers grossly normal. Trace TR. No obvious vegetation noted, all 4 cardiac valves. ECHOCARDIOGRAM REPORT [id number] ELLEKAREN Lainez TRANSINT:[id number] Voice Confirmation ID: [id number] DOCUMENT ID: [id number] KAREN BERNAL MD at 1307 CC: [id number] DICTATION DATE: 09/07/19 104 LIFESTYLE DIRECTOR: 09/07/19 223 ADM IN [facility] [address] [place] [address]
--- NOTE | 2019-09-09 13:07 | CN ---
PATIENT NAME:KAREN ALMEIDA MEDICAL RECORD: [id number] : 93 LOCATION:[id number] ADMIT DATE: 09/01/19 ACCOUNT: [id number] CONSULTING PHYSICIAN: KAREN BERNAL MD REFERRING PHYSICIAN: AJITH THOMSON MD DATE OF CONSULTATION: 09/06/2019 HISTORY OF PRESENT ILLNESS: A 23-year-old gentleman with a history of a drug overdose, presented to the ER. He had a fairly rapid decreased mentation, he became increasingly sedated and was intubated, trached airway. He was noted this morning to have ECG changes with ST changes inferolaterally as well as prolonged QT interval, pressure stable. No further dysrhythmia. Tox screen positive for benzos, cocaine, THC on admission. We are asked to see him concerning his cardiovascular status. PAST MEDICAL HISTORY: Included; 1. History of ADHD. 2. Previous suicide attempts in the past. 3. Childhood reactive airway disease. ALLERGIES: None known. MEDICATIONS: Maintenance prior to admission unobtainable. SOCIAL HISTORY: Unobtainable. REVIEW OF SYSTEMS: Unobtainable due to the patient factors. PHYSICAL EXAMINATION: GENERAL: Sedated and intubated. VITAL SIGNS: Blood pressure 121/60, pulse 62 currently irregular. HEENT: Normocephalic and atraumatic. NECK: No bruits noted. HEART: Regular, S4 gallop is noted. LUNGS: Good air excursion. ABDOMEN: Soft, nontender. EXTREMITIES: Pulses 2+ with no edema. DIAGNOSTIC DATA: EKG shows ST-T changes inferolaterally. Echo studies reviewed. LV function remains normal with no focal wall motion abnormality. Continue to monitor as you are doing, serial enzymes. Further recommendations based on clinical course. TRANSINT:[id number] Voice Confirmation ID: [id number] DOCUMENT ID: [id number] KAREN BERNAL MD at 1307 CC: [id number] DICTATION DATE: 09/06/19 1208 CABLE TOOL DRILLER: 09/06/19 1414 ADM IN [place] [id number] [place] [address]
--- NOTE | 2019-09-09 13:50 | NUR ---
IV TO LEFT WRIST OUT. 2 PERIPHERAL IVS PLACED TO RIGHT FOREARM AND LEFT FOREARM. 20 GAUGE. PT TOLERATED WELL. BACK IN RESTRAINTS. WILL CONTINUE TO MONITOR.
--- NOTE | 2019-09-09 14:45 | NUR ---
RECEIVED BEDSIDE REPORT AND ASSUMED CARE OF PATIENT. PATIENT AGITATED AND RESTLESS, ATTEMPTING TO SIT UP IN BED, HR - 123, BP 168/102, HAS PULLED OGT OUT AND HAS TUBE FEEDING COMING OUT OF MOUTH, SUCTIONED. TUBE FEEDING STOPPED. OGT ADVANCED AND PLACEMENT CHECKED BY ASCULTATION, RESIDUAL NOTED AT 120 CC, OGT RESECURED TO ETT. PATIENT GIVEN 2 MG VERSED PRN VIA IVP WITH NS FLUSH. PATIENT RESTING QUIETLY. HEAD TO TOE ASSESSMENT COMPLETED. RESTRAINTS IN PLACE. IV 20 GA TO LEFT WRIST INFUSING PROPOFOL AT 70 MCG/KG/MIN, IV 20 GA TO LEFT FA INFUSING 1/2NS AT 75 CC/HR AND FENTANYL AT 500 MCG/HR. IV 20 GA TO RIGHT FA, NSL. MARIE CATH EMPTIED WIHT 2,000 AAKASH UOP. TURNED AND REPOSITONED IN BED. VSS.
--- NOTE | 2019-09-09 16:30 | NUR ---
SPOKE TO DR. THOMSON REGARDING RASH ON UPPER BACK OF PATIENT, ORDERS KENALOG 0.1% CREAM TO BE APPLIED BID. ORDER PLACED AND CREAM APPLIED TO UPPER BACK.
--- NOTE | 2019-09-09 16:40 | NUR ---
SPOKE TO DR. BLACK REGARDING PATIENT NO APPROPRIATELY SEDATED TO OBTAIN CTA, ORDER PROVIDED TO GIVE MORPHINE 2-4 MG Q2H PRN NEEDED, AND VERSED 2 MG Q2H PRN. FENTANYL INCREASED TO 500 MCG/HR. MORPHINE 4 MG GIVEN IVP PER ORDER ADN VERSED 2 MG IVP WITH NS FLUSH TO TAKE PATIENT TO CTA.
--- NOTE | 2019-09-09 16:55 | NUR ---
PATIENT TO CT. GIVEN 4 MG IVP MORPHINE AND 2 MG VERSED DUE TO EXTREME RESTLESSNESS ATTEMPTING TO SIT UP AND PULL OUT ETT. PATIENT APPEARS TO BE GAGGING ON THE ETT.
--- NOTE | 2019-09-09 17:18 | NUR ---
PATIENT BACK FROM CT. RESTLESS, FENTANYL INCREASED TO 550 MCG/HR.
[2019-09-09 18:08] LABS: AEROBE ID Final report (())
--- NOTE | 2019-09-09 19:30 | NUR ---
PT AGITATED AND RESTLESS, SITTING UP AND PULLING AT TUBES/LINES. FENTANYL INFUSION TITRATED, SEE IV FLOWSHEET. PT REPOSITIONED WITH A PARTIAL LINEN CHANGE PROVIDED. PROMINENCES BRIDGED. BILATERAL WRIST RESTRAINTS IN USE. PT WILL NOD TO QUESTIONS, INCONSISTENT WITH FOLLOWING COMMANDS. ORAL CARE PROVIDED. ROOM VISIBLE FROM NURSES STATION. CPOC.
--- NOTE | 2019-09-09 20:00 | NUR ---
FAMILY GIVEN UPDATE AND QUESTIONS ANSWERED VIA PHONE, PASSWORD PROVIDED.
--- NOTE | 2019-09-09 21:56 | NUR ---
PT SITTING UP IN BED, AGITATED AND RESTLESS, PRN SEDATIVES GIVEN PER ORDER. PT REPOSITIONED FOR COMFORT. ROOM VISIBLE FROM NURSES STATION. CPOC.
--- NOTE | 2019-09-09 23:30 | NUR ---
REASSESSMENT COMPLETE, SEE FLOWSHEET. PT REPOSITIONED WITH PROMINENCES BRIDGED. ORAL CARE PROVIDED. ROOM VISIBLE FROM NURSES STATION. CPOC.
[2019-09-10] VITALS (26 sets, daily range): BP systolic 108–193; BP diastolic 47–86; Ht 182.9 cm; Wt 66.6 kg
--- NOTE | 2019-09-10 | NUR ---
PT SITTING UP IN BED, AGITATED. ATTEMPTING TO PULL AT ETT. PRN SEDATIVES GIVEN PER ORDER. PT REPOSITIONED FOR COMFORT. ORAL CARE PROVIDED. BILATERAL WRIST RESTRAINTS IN USE, BED ALARM ON, ROOM VISIBLE FROM NURSES STATION. CPOC.
--- NOTE | 2019-09-10 03:39 | NUR ---
REASSESSMENT COMPLETE, SEE FLOWSHEET. PT REPOSITIONED WITH PROMINENCES BRIDGED. ORAL CARE PROVIDED. IV TUBING CHANGED PER POLICY. ROOM VISIBLE FROM NURSES STATION. CPOC.
[2019-09-10 04:40] LABS: BASOPHILS 0.3 % (0-2); EOSINOPHILS 2.1 % (0-7); HEMATOCRIT 37.3 % (42.0-54.0); HEMOGLOBIN 12.7 g/dL (13.5-17.5); IMMATURE GRANULOCYTES 2.3 % (0-5); LYMPHOCYTES 5.4 % (15-50); MCH 32.5 pg (26.0-34.0); MCV 95.4 fL (80.0-100.0); MEAN PLATELET VOLUME 10.9 fL (7.4-10.4); MONOCYTES 9.7 % (2-11); NEUTROPHILS 80.2 % (40-80); PLATELET COUNT 354 10x3/uL (130-400); RBC 3.91 10x6/uL (4.20-6.10); RDW 11.7 % (11.5-14.5)
[2019-09-10 04:52] LABS: WBC 19.2 10x3/uL (4.8-10.8)
[2019-09-10 05:09] LABS: ALBUMIN 2.3 g/dL (3.4-5.0); ALKALINE PHOSPHATASE 192 U/L (46-116); ALT (SGPT) 64 U/L (10-68); BILIRUBIN - TOTAL 0.82 mg/dL (0.2-1.3); CALC OSMOLALITY 266 mosm/kg (275-300); CARBON DIOXIDE 29.1 mmol/L (21.0-32.0); CHLORIDE - SERUM 102 mmol/L (98-107); CREATININE - SERUM 0.6 mg/dL (0.6-1.3); GLUCOSE 82 mg/dL (74-106); MAGNESIUM - SERUM 1.8 mg/dL (1.8-2.4); PHOSPHOROUS 2.7 mg/dL (2.5-4.9); PROTEIN - SERUM 6.1 g/dL (6.4-8.2); SODIUM 134 mmol/L (136-145); UREA NITROGEN 12 mg/dL (7-18); eGFR NON AFRICAN AMERICAN > 90 mL/min (90-120)
[2019-09-10 05:10] LABS: POTASSIUM - SERUM 4.7 mmol/L (3.5-5.1)
--- NOTE | 2019-09-10 06:25 | NUR ---
PT REPOSITIONED WITH PARTIAL LINEN CHANGE, PROMINENCES BRIDGED.
--- NOTE | 2019-09-10 07:30 | NUR ---
report recieved. patient bucking vent. awake and alert. 600 of fentanyl and 70 of propofol. pink frothy sputum in vent tubing. cliff resp aware. heart rate 134. a flutter. flutter resides when patient is calm. normal sinus now. reoriented as needed. will continue to monitor.
--- NOTE | 2019-09-10 08:41 | NUR ---
patient in normal sinus now
--- NOTE | 2019-09-10 09:55 | NUR ---
PATIENT BUCKING VENT. MOVING AROUND IN THE VIGOROUSLY. 70 MCG OF PROPOFOL AND 600 OF FENTANYL WITH MORPHINE AND VERSED Q2. PATIENT STILL TRYING TO GET OUT OF BED AND PULLING AT LINES AND TUBES. PAGED DR BLACK BECAUSE O2 SAT IS 76 AND WILL NOT RISE. BLOOD GAS DRAWN WITH PEEP OF 10 AND FIO2 100%. PATIENT EXTREMELY AGITATED WHEN STIMULATED. EXPLAINED TO FAMILY HE DOES NOT NEED SITMULATION DUE TO COMPLCIATIONS IN SPO2 DROPPING. FAMILY CONTINUES TO SPEAK AND TOUCH HIM CAUSING HIM TO ARISE AND TRY TO SCREAM OVER THE VENT.
--- NOTE | 2019-09-10 10:19 | NUR ---
DR BLACK GAVE NEW ORDERS OF 4 MG OF VERSED TO BE GIVEN. DC PROPOFOL. THEN START A VERSED DRIP. WILL CONTINUE TO MONITOR.
--- NOTE | 2019-09-10 11:19 | NUR ---
DR BLACK AT BEDSIDE. WILL CONTINUE TO MONITOR
--- NOTE | 2019-09-10 11:25 | NUR ---
VERSED DRIP STARTED AT 1 MG.HR FENTANYL DRIP AT 600 MCG/MIN DR BLACK GAVE VERBAL ORDER TO CONTINUE THE PROPOFOL AFTER THE VERSED DRIP DID NOT HELP THE PATIENT CALM DOWN. PROPOFOL OF75 MCG KVO AND 1.2NS AT 75 NEW IV STARTED ON L FORARM DUE TO PATIENT PULLING OUT R FOREARM IV.
--- NOTE | 2019-09-10 14:09 | NUR ---
DR PETERSON AWARE OF CONSULT
--- NOTE | 2019-09-10 14:47 | NUR ---
Nutrition follow-up: Intubated, sedated Pulmocare @ 45 ml/hr Pt with some emesis 09/09 and TF turned off; back on now Labs reviewed Wt: 176# RDN following.
--- NOTE | 2019-09-10 15:00 | NUR ---
DR BLACK SPOKE WITH FAMILY REGARDING TRACH AND PEG
--- NOTE | 2019-09-10 15:42 | NUR ---
PER DR BLACK, HE WOULD LIKE TO WEAN OFF OF PROPOFOL AND GO UP ON VERSED TO KEEP HIM COMFORTABLE AND USE GEODON NEEDED.
--- NOTE | 2019-09-10 17:30 | NUR ---
PATIENT IS RESTLESS WHEN FAMILY IS AT BEDSIDE. PATIENT WILL TRY TO SCREAM OVER VENT CAUSING HIS SPO2 TO DROP. FFAMILY EDUCATED ON WHY PATIENT SHOULD NOT BE STIMULATED. HR BACK TO NS. PATIENT WAKES UP TO SPEECH ON 600 OF FENTANYL AND 5 OF VERSED. PINK FRONTY SPUTUM WITH CRACKLES IN UPPER LOBES. TF AT 40. FLUSH Q2 HR 50 CC. MARIE. FREE OF KINKS. 1450 MARIE. PUMPS CLEARED. BED LOW AND LCOKED. HOB 30. WILL CONTINUE TO MONITOR
--- NOTE | 2019-09-10 19:00 | NUR ---
PT VERY AGITATED, SITTING UP IN BED, ATTEMPTING TO PULL AT ETT. THRASHING FROM SIDE TO SIDE. VERSED GTT TITRATED PER ORDERS, SEE ELIE. RN AT BEDSIDE ATTEMPTING TO CALM AND REORIENT PT, REMAINS AT BEDSIDE UNTIL PT RESTING QUIETLY WITH VSS. BILATERAL WRIST RESTRAINTS IN USE. ROOM VISIBLE FROM NURSES STATION, BED ALARM ON. CPOC.
--- NOTE | 2019-09-10 19:00 | NUR ---
DR. PETERSON AT [facility], STATES TRACH/PEG TO BE DONE ON SUNDAY.
--- NOTE | 2019-09-10 22:43 | NUR ---
PT SITTING UP IN BED TRYING TO PULL AT LINES/TUBES, VERY AGITATED. PRN GEODON GIVEN PER ORDER. PT POSITIONED FOR COMFORT. RN X2 AT BEDSIDE ATTEMPTING TO CALM AND REORIENT PT. BILATERAL WRIST RESTRAINTS IN USE. RN AT BEDSIDE UNTIL PT BEGINS TO REST QUIETLY. ROOM VISIBLE FROM NURSES STATION. BED ALARM ON. CPOC.
--- NOTE | 2019-09-10 23:00 | NUR ---
REASSESSMENT COMPLETE, NO NEW CHANGES AT THIS TIME. PT AROUSES EASILY TO STIMULI AND BECOMES AGITATED QUICKLY. POSITIONED FOR COMFORT. ORAL CARE PROVIDED. ROOM VISIBLE FROM NURSES STATION, BED ALARM ON. CPOC.
[2019-09-11] VITALS (25 sets, daily range): BP systolic 99–131; BP diastolic 46–75
--- NOTE | 2019-09-11 00:30 | NUR ---
PT SITTING UP IN BED VERY AGITATED, THRASHING FROM SIDE TO SIDE, ATTEMPTING TO PULL AT LINES/TUBES. CURRENTLY MAXED ON VERSED/FENT INFUSIONS PER ORDERS. ATTEMPTS TO CALM/REORIENT UNSUCCESSFUL. DR. SOFIA ZHANG. RN AT BEDSIDE.
--- NOTE | 2019-09-11 00:40 | NUR ---
DR. BLACK PROVIDED WITH PT UPDATE, ORDERS TO RESTART PROPOFOL INFUSION GIVEN.
--- NOTE | 2019-09-11 00:50 | NUR ---
DIPRIVAN INFUSION INITIATED AT 5 MCG/KG/MIN
--- NOTE | 2019-09-11 01:00 | NUR ---
PT RESTING QUIETLY AT THIS TIME. BILATERAL WRIST RESTRAINTS IN USE, BED ALARM ON, ROOM VISIBLE FROM NURSES STATION. VSS, CPOC.
--- NOTE | 2019-09-11 03:00 | NUR ---
REASSESSMENT COMPLETE, SEE FLOWSHEET. PT SEDATED, VSS, NO S/S OF ACUTE DISTRESS AT THIS TIME. PT REPOSITIONED WITH PROMINENCES BRIDGED. ORAL CARE PROVIDED. ROOM VISIBLE FROM NURSES STATION. CPOC.
--- NOTE | 2019-09-11 05:08 | NUR ---
COMPLETE LINEN CHANGE PROVIDED. MARIE CATH CARE PROVIDED. VSS, CPOC.
[2019-09-11 05:32] LABS: BASOPHILS 0.2 % (0-2); EOSINOPHILS 0.9 % (0-7); HEMATOCRIT 38.2 % (42.0-54.0); HEMOGLOBIN 12.7 g/dL (13.5-17.5); IMMATURE GRANULOCYTES 1.9 % (0-5); LYMPHOCYTES 5.6 % (15-50); MCH 32.2 pg (26.0-34.0); MCHC 33.2 g/dL (31.0-37.0); MCV 96.7 fL (80.0-100.0); MEAN PLATELET VOLUME 11.3 fL (7.4-10.4); MONOCYTES 9.8 % (2-11); NEUTROPHILS 81.6 % (40-80); PLATELET COUNT 375 10x3/uL (130-400); RBC 3.95 10x6/uL (4.20-6.10); WBC 18.8 10x3/uL (4.8-10.8)
[2019-09-11 05:50] LABS: ALBUMIN 2.4 g/dL (3.4-5.0); ALKALINE PHOSPHATASE 181 U/L (46-116); ALT (SGPT) 65 U/L (10-68); BILIRUBIN - TOTAL 0.85 mg/dL (0.2-1.3); CALCIUM 8.5 mg/dL (8.5-10.1); CARBON DIOXIDE 29.8 mmol/L (21.0-32.0); CHLORIDE - SERUM 100 mmol/L (98-107); CREATININE - SERUM 0.7 mg/dL (0.6-1.3); GLUCOSE 83 mg/dL (74-106); PHOSPHOROUS 2.9 mg/dL (2.5-4.9); PROTEIN - SERUM 5.8 g/dL (6.4-8.2); SODIUM 134 mmol/L (136-145); eGFR NON AFRICAN AMERICAN > 90 mL/min (90-120)
[2019-09-11 05:58] LABS: CALC OSMOLALITY 268 mosm/kg (275-300); POTASSIUM - SERUM 5.8 mmol/L (3.5-5.1); UREA NITROGEN 17 mg/dL (7-18)
--- NOTE | 2019-09-11 07:30 | NUR ---
report recieved. patietn stable. sedated. no bucking. no acute distress at this time. will continue to monitor. crackles in upper lobes. no bm. khan.
--- NOTE | 2019-09-11 09:30 | NUR ---
family at bedside. udpate given. dr braxton harris with family
--- NOTE | 2019-09-11 11:52 | NUR ---
chg bath given. full linen change. khan care. oral care. turned. will continue to monitor
--- NOTE | 2019-09-11 13:00 | NUR ---
fever broke. ice packs successful. 98.9. will continue willi onitor patietn. see assessment and adl's
--- NOTE | 2019-09-11 15:00 | NUR ---
afebrile during this time. dr rivera at bedside. order given.
--- NOTE | 2019-09-11 17:00 | NUR ---
sedated. no changes from reassessment. will continue to monitor
--- NOTE | 2019-09-11 19:00 | NUR ---
SHIFT ASSESSMENT COMPLETED. PT CARE ASSUMED. MONITORS ON AND WORKING, VITALS STABLE. PT SEDATED, VENT SETTINGS NOTED. MARIE STAT LOCKED IN PLACE, SEE FLOW SHEET FOR FURTHER DETAILS. WILL CONTINUE TO OBSERVE.
--- NOTE | 2019-09-11 21:00 | NUR ---
PT TURNED AND REPOSITIONED FOR COMFORT, MONITORS ON AND WORKING, VITALS STABLE. FAMILY MEMBER CALLED, PASSWORD CONFIRMED AND UPDATE PROVIDED. PT REMAINS SEDATED ON VENT. WILL CONTINUE TO OBSERVE.
--- NOTE | 2019-09-11 23:00 | NUR ---
NO CHANGES, SEE FLOW SHEET FOR FURTHER DETAILS. WILL CONTINUE TO OBSERVE.
[2019-09-12] VITALS (26 sets, daily range): BP systolic 112–151; BP diastolic 48–89
--- NOTE | 2019-09-12 01:00 | NUR ---
PT TURNED AND REPOSITIONED FOR COMFORT, ORAL CARE PROVIDED AT THIS TIME, MONITORS ON AND WORKING ,VITALS STABLE, WILL CONTINUE TO OBSERVE.
--- NOTE | 2019-09-12 03:00 | NUR ---
NO CHANGES, PT SEDATED ON VENT, MONITORS ON AND WORKING, VITALS STABLE. SEE FLOW SHEET FOR FURTHER DETAILS WILL CONTINUE TO OBSERVE.
--- NOTE | 2019-09-12 05:00 | NUR ---
NO CHANGES, PT TURNED AND REPOSITIONED, WILL CONTINUE TO OBSERVE.
--- NOTE | 2019-09-12 07:35 | NUR ---
Nutrition follow-up: Pt for trach, PEG tube placement today Labs reviewed Wt: 174# Recommend continuing Pulmocare @ 45 ml/hr after PEG tube placement. RDN following.
--- NOTE | 2019-09-12 08:17 | NUR ---
REPORT RECEIVED. PT SEDATED ON VENT. HAVE BEEN REQUESTED TO GIVE PRE-OP MEDICATIONS. GIVEN ORDERED.
--- NOTE | 2019-09-12 10:38 | NUR ---
DR PETERSON HAS BEEN BY TO TALK WITH FAMILY. PT NOW OFF UNIT TO O.R.
--- NOTE | 2019-09-12 12:32 | NUR ---
PT HAS RETURNED TO ROOM FROM O.R. PLACED BACK ON MONITORING. ERROL FROM [facility] CALLED FOR UPDATE ON PT STATUS.
--- NOTE | 2019-09-12 13:41 | NUR ---
DR THOMSON BY TO SEE PATIENT.SPOKE EXTENSIVELY WITH FAMILY MEMBERS
--- NOTE | 2019-09-12 15:00 | NUR ---
REASSESSMENT COMPLETE PER FLOW SHEET. VSS. NO NEW CHANGES WILL CONTINUE TO MONTIOR
--- NOTE | 2019-09-12 17:20 | NUR ---
FAMILY AT BEDSIDE. GIVEN UPDATE. NO NEW CHANGES. VSS ORAL CARE ADM. NEEDS MET.
[2019-09-13] VITALS (23 sets, daily range): BP systolic 104–134; BP diastolic 40–82
[2019-09-13 04:30] LABS: HEMATOCRIT 34.2 % (42.0-54.0); HEMOGLOBIN 11.1 g/dL (13.5-17.5); MCH 32.1 pg (26.0-34.0); MCHC 32.5 g/dL (31.0-37.0); MCV 98.8 fL (80.0-100.0); MEAN PLATELET VOLUME 10.3 fL (7.4-10.4); PLATELET COUNT 433 10x3/uL (130-400); RBC 3.46 10x6/uL (4.20-6.10); RDW 12.4 % (11.5-14.5); WBC 26.1 10x3/uL (4.8-10.8)
[2019-09-13 04:40] LABS: CALC OSMOLALITY 271 mosm/kg (275-300); CALCIUM 8.6 mg/dL (8.5-10.1); CARBON DIOXIDE 30.1 mmol/L (21.0-32.0); CHLORIDE - SERUM 99 mmol/L (98-107); CREATININE - SERUM 0.6 mg/dL (0.6-1.3); GLUCOSE 94 mg/dL (74-106); MAGNESIUM - SERUM 1.8 mg/dL (1.8-2.4); PHOSPHOROUS 3.3 mg/dL (2.5-4.9); POTASSIUM - SERUM 4.5 mmol/L (3.5-5.1); SODIUM 136 mmol/L (136-145); UREA NITROGEN 13 mg/dL (7-18); eGFR NON AFRICAN AMERICAN > 90 mL/min (90-120)
[2019-09-13 05:19] LABS: EOSINOPHILS 2 % (0-7); LYMPHOCYTES 8 % (15-50); MONOCYTES 6 % (2-11); NEUTROPHILS 80 % (40-80); PLATELET ESTIMATE INCREASED
--- NOTE | 2019-09-13 08:11 | NUR ---
LYING IN BED ON VENT VIA TRACH AT THIS TIME. VSS. NO ACUTE DISTRESS NOTED. PT TURNED Q2H. ORAL CARE PROVIDED Q2H. WILL CONTINUE PLAN OF CARE.
--- NOTE | 2019-09-13 09:54 | NUR ---
Nutrition follow-up/consult: Received consult of TF s/p PEG tube placement. Labs reviewed Wt: 174# RDN will order Pulmocare @ 45 ml/hr with gradual increase to goal rate of 60 ml/hr with 100 ml H2O flush Q 4 hours. Thank you for the consult RDN following.
--- NOTE | 2019-09-13 10:42 | NUR ---
VSS. NO ACUTE DISTRESS NOTED. NO CHANGE. WILL CONTINUE PLAN OF CARE.
--- NOTE | 2019-09-13 12:18 | NUR ---
COUGHING NOTED OVER VENT. SUCTIONING PROVIDED. ORAL CARE PROVIDED. VSS. PT TURNED Q2H AND ORAL CARE PROVIDED Q2H. WILL CONTINUE PLAN OF CARE.
--- NOTE | 2019-09-13 14:21 | NUR ---
FAMILY AT BEDSIDE AT THIS TIME, UPDATES PROVIDED. VSS. NO ACUTE DISTRESS NOTED. WILL CONTINUE PLAN OF CARE.
--- NOTE | 2019-09-13 16:52 | NUR ---
TUBE FEEDS STARTED AT THIS TIME PER ORDER VIA PEG. VSS. NO ACUTE DISTRESS NOTED. WILL CONTINUE PLAN OF CARE.
--- NOTE | 2019-09-13 18:28 | NUR ---
PT AWAKE, OPENED EYES AND ANSWERES YES/NO QUESTIONS. NO ACUTE DISTRESS NOTED. VSS. WILL CONTINUE PLAN OF CARE.
[2019-09-14] VITALS (22 sets, daily range): BP systolic 109–137; BP diastolic 54–78
[2019-09-14 04:11] LABS: CALC OSMOLALITY 273 mosm/kg (275-300); CALCIUM 8.5 mg/dL (8.5-10.1); CARBON DIOXIDE 30.4 mmol/L (21.0-32.0); CHLORIDE - SERUM 101 mmol/L (98-107); CREATININE - SERUM 0.5 mg/dL (0.6-1.3); GLUCOSE 90 mg/dL (74-106); MAGNESIUM - SERUM 1.9 mg/dL (1.8-2.4); POTASSIUM - SERUM 4.5 mmol/L (3.5-5.1); SODIUM 137 mmol/L (136-145); UREA NITROGEN 13 mg/dL (7-18); eGFR NON AFRICAN AMERICAN > 90 mL/min (90-120)
[2019-09-14 04:12] LABS: PHOSPHOROUS 4.9 mg/dL (2.5-4.9)
[2019-09-14 06:50] LABS: BASOPHILS 0.5 % (0-2); EOSINOPHILS 5.3 % (0-7); HEMATOCRIT 32.5 % (42.0-54.0); HEMOGLOBIN 10.2 g/dL (13.5-17.5); IMMATURE GRANULOCYTES 3.5 % (0-5); LYMPHOCYTES 15.1 % (15-50); MCH 31.4 pg (26.0-34.0); MCHC 31.4 g/dL (31.0-37.0); MEAN PLATELET VOLUME 10.8 fL (7.4-10.4); MONOCYTES 10.6 % (2-11); PLATELET COUNT 430 10x3/uL (130-400); RBC 3.25 10x6/uL (4.20-6.10); RDW 12.5 % (11.5-14.5)
[2019-09-14 07:13] LABS: WBC 14.7 10x3/uL (4.8-10.8)
--- NOTE | 2019-09-14 07:28 | NUR ---
SHIFT ASSESSMENT COMPLETE. VS STABLE. NO VISUAL CUES OF DISTRESS NOTED. WILL CONTINUE TO MONITOR.
--- NOTE | 2019-09-14 08:11 | NUR ---
PT LYING IN BED ON VENT VIA TRACH. PT WAKES UP AND SMILES AT STAFF. VSS. CALL LIGHT IN REACH. NO ACUTE DISTRESS NOTED. SEDATION TITRATED PER ORDERS, SEE IV FLOWSHEET. PT WILL BE OFF OF FRESH TRACH PROTOCOL AT 1200 TODAY. WILL CONTINUE PLAN OF CARE.
--- NOTE | 2019-09-14 10:10 | NUR ---
TUBE FEED RESIDUALS NOTED AT 35ML VIA PEG. TUBE FEED RATE INCREASED FROM 40ML/HR TO 50ML/HR. VSS. NO ACUTE DISTRESS NOTED. WILL CONTINUE PLAN OF CARE.
--- NOTE | 2019-09-14 12:46 | NUR ---
FAMILY AT BEDSIDE AT THIS TIME. VSS. PT TURNED Q2H. ORAL CARE PROVIDED Q2H. PT WAKES UP AND FOLLOWS COMMANDS. WILL CONITNUE PLAN OF CARE.
--- NOTE | 2019-09-14 13:43 | NUR ---
PER DR MEJIA START TURNING SEDATION OFF SINCE WE ARE PAST FRESH TRACH PROTOCOL.
--- NOTE | 2019-09-14 15:36 | NUR ---
NO ACUTE DISTRESS NOTE. NO CHANGE. VSS. TURNED Q2H. ORAL CARE PROVIDED Q2H. WILL CONTINUE PLAN OF CARE.
--- NOTE | 2019-09-14 16:22 | NUR ---
CHG BATH GIVEN AT THIS TIME ALONG WITH TOTAL LINEN CHANGE. VSS. NO ACUTE DISTRESS NOTED. FAMILY AT BEDSIDE. WILL CONTINUE PLAN OF CARE.
--- NOTE | 2019-09-14 18:31 | NUR ---
NO ACUTE DISTRESS NOTED. NO CHANGE. VSS. TURNED Q2H AND ORAL CARE PROVIDED Q2H. WILL CONTINUE PLAN OF CARE.
--- NOTE | 2019-09-14 19:00 | NUR ---
SHIFT ASSESSMENT COMPLETED. PT CARE ASSUMED. MONITORS ON AND WORKING, VITALS STABLE. TRACH AND PEG. MARIE STAT LOCKED IN PLACE, VENT SETTINGS NOTED. WILL CONTINUE TO OBSERVE.
--- NOTE | 2019-09-14 21:00 | NUR ---
FAMILY MEMBER CALLED, PASSWORD CONFIRMED AND UPDATE PROVIDED. MONITORS ON AND WORKING, VITALS STABLE, WILL CONTINUE TO OBSERVE.
--- NOTE | 2019-09-14 23:00 | NUR ---
PT TURNED AND REPOSITIONED FOR COMFORT, ORAL CARE AND SUCTIONING DONE AT THIS TIME, SEE FLOW SHEET FOR FURTHER DETAILS. WILL CONTINUE TO OBSERVE.
[2019-09-15] VITALS (24 sets, daily range): BP systolic 99–140; BP diastolic 54–75
--- NOTE | 2019-09-15 01:00 | NUR ---
PT TURNED AND REPOSITIONED FOR COMFORT, MONITORS ON AND WORKING, VITALS STABLE. PT CONTINUES TO COUGH PRODUCTIVE COUGH CONSTANTLY. WILL CONTINUE TO OBSERVE.
--- NOTE | 2019-09-15 03:30 | NUR ---
REASSESSMENT COMPLETE, NO CHANGES NOTED, WILL CON'T TO MONITOR
[2019-09-15 05:46] LABS: CALC OSMOLALITY 274 mosm/kg (275-300); CALCIUM 8.5 mg/dL (8.5-10.1); CARBON DIOXIDE 31.3 mmol/L (21.0-32.0); CHLORIDE - SERUM 101 mmol/L (98-107); CREATININE - SERUM 0.5 mg/dL (0.6-1.3); GLUCOSE 89 mg/dL (74-106); MAGNESIUM - SERUM 1.8 mg/dL (1.8-2.4); POTASSIUM - SERUM 4.4 mmol/L (3.5-5.1); SODIUM 138 mmol/L (136-145); UREA NITROGEN 13 mg/dL (7-18); eGFR NON AFRICAN AMERICAN > 90 mL/min (90-120)
--- NOTE | 2019-09-15 07:20 | NUR ---
REPORT RECEIVED. PT HAS TRACH AND PEG. PULMOCARE AT 55ML/HR. GOAL IS 60. PT ON FENTANYL, VERSED, AND PROPOFOL. 80% ON VENT. HAS MARIE. VSS. WILL CONTINUE TO MONITOR.
--- NOTE | 2019-09-15 09:00 | NUR ---
Nutrition follow-up: s/p trach/peg Pulmocare @ 45 ml/hr goal with pt tolerance Labs reviewed Wt: 169# RDN following.
--- NOTE | 2019-09-15 09:30 | NUR ---
PT SUCTIONED AND REPOSITIONED. VSS. WILL CONTINUE TO MONITOR.
--- NOTE | 2019-09-15 11:08 | NUR ---
ZOFRAN GIVEN PER DR MAI. ONE TIME ORDER. PT BOLUSED WITH SEDATION. WILL CONTINUE TO MONITOR.
[2019-09-15 12:08] LABS: IMMUNOGLOBULIN A 207 mg/dL (90-386); IMMUNOGLOBULIN G 664 mg/dL (700-1600)
--- NOTE | 2019-09-15 13:30 | NUR ---
PT SUCTIONED AND REPOSITIONED.
--- NOTE | 2019-09-15 15:53 | NUR ---
PT REPOSITIONED AND SUCTIONED. VSS. PT SEDATED. WILL CONTINUE TO MONITOR.
--- NOTE | 2019-09-15 17:45 | NUR ---
REPOSITIONED AND SUCTIONED. VSS.
--- NOTE | 2019-09-15 22:27 | NUR ---
1900 ASSESSMENT DONE SEE FLOW SHEET. VSS. 2100 MEDS GIVEN PER NOV. FAMILY AT BEDSIDE. QUESTIONS ANSWERED. VSS. 2226 IVS RESITED. R WRIST PIV 20G. L FOREARM PIV 20G.
--- NOTE | 2019-09-15 23:00 | NUR ---
REASSESSMENT DONE SEE FLOW SHEET. VSS.
[2019-09-16] VITALS (24 sets, daily range): BP systolic 99–131; BP diastolic 46–667
--- NOTE | 2019-09-16 01:00 | NUR ---
CHG BATH COMPLETE COMPLETE LINEN CHANGE PROVIDED.
--- NOTE | 2019-09-16 03:00 | NUR ---
REASSESSMENT DONE SEE FLOW SHEET.
[2019-09-16 04:59] LABS: BASOPHILS 0.4 % (0-2); EOSINOPHILS 4.1 % (0-7); HEMATOCRIT 31.6 % (42.0-54.0); HEMOGLOBIN 10.4 g/dL (13.5-17.5); IMMATURE GRANULOCYTES 3.3 % (0-5); LYMPHOCYTES 11.5 % (15-50); MCH 31.4 pg (26.0-34.0); MCHC 32.9 g/dL (31.0-37.0); MCV 95.5 fL (80.0-100.0); MEAN PLATELET VOLUME 10.2 fL (7.4-10.4); MONOCYTES 8.2 % (2-11); NEUTROPHILS 72.5 % (40-80); PLATELET COUNT 462 10x3/uL (130-400); RBC 3.31 10x6/uL (4.20-6.10); RDW 11.8 % (11.5-14.5); WBC 14.9 10x3/uL (4.8-10.8)
--- NOTE | 2019-09-16 05:00 | NUR ---
IO COLLECTED DAILY WEIGHT COLLECTED. VSS.
[2019-09-16 05:12] LABS: CALC OSMOLALITY 277 mosm/kg (275-300); CALCIUM 8.4 mg/dL (8.5-10.1); CARBON DIOXIDE 32.8 mmol/L (21.0-32.0); CHLORIDE - SERUM 104 mmol/L (98-107); CREATININE - SERUM 0.5 mg/dL (0.6-1.3); GLUCOSE 102 mg/dL (74-106); POTASSIUM - SERUM 4.4 mmol/L (3.5-5.1); SODIUM 139 mmol/L (136-145); UREA NITROGEN 12 mg/dL (7-18); eGFR NON AFRICAN AMERICAN > 90 mL/min (90-120)
[2019-09-16 05:20] LABS: ALBUMIN 1.8 g/dL (3.4-5.0); ALKALINE PHOSPHATASE 197 U/L (46-116); ALT (SGPT) 104 U/L (10-68); BILIRUBIN - TOTAL 0.43 mg/dL (0.2-1.3); PROTEIN - SERUM 5.7 g/dL (6.4-8.2)
--- NOTE | 2019-09-16 07:00 | NUR ---
REC'D REPORT AND RESUMED CARE, TRACH TO VENT AND SECURED, O2 SAT 98% ON 70 % FIO2, ORAL CARE AND SUCTION COMPLETED, AROUSES TO VERBAL STIMULI, FOLLOWS SIMPLE DIRECTIONS, PEG TUBE WITH PULMOCARE INFUSING, B/L RESTRAINTS IN USE, MARIE TO GRAVITY WITH DARK CONCENTRATED DRAINAGE TO BAG, ASSESSMENT COMPLETED PER FLOWSHEET, VSS, WILL CONTINUE WITH POC
--- NOTE | 2019-09-16 08:00 | NUR ---
GRAND MOTHER AT BEDSIDE, STATUS UPDATED, VOICES NO OTHER NEEDS A THIS TIME
--- NOTE | 2019-09-16 08:45 | NUR ---
CALLED TO ROOM BY AUNT, PATIENT IN NEED OF SUCTION, ORAL AND INLINE SUCTION COMPLETED, THICK SECRETIONS
--- NOTE | 2019-09-16 09:15 | NUR ---
MORNING MEDS GIVEN PER NOV FLOWSHEET
--- NOTE | 2019-09-16 10:30 | NUR ---
VENT ALARMING, COUGHING, LOTS OF FROTHY SECRETIONS SUCTIONED ORALLY AND ENDOTRACHEAL, DIAPHORECTIC, FAN TURNED ON .
--- NOTE | 2019-09-16 11:00 | NUR ---
REASSESSMENT COMPLETED PER FLOWSHEET, VSS, NO ACUTE CHANGE FROM PREVIOUS
--- NOTE | 2019-09-16 11:45 | NUR ---
PER DR MAI FIO2 TITRATED TO 60%, SAT 100%
--- NOTE | 2019-09-16 14:10 | NUR ---
FAMILY C/O THAT PATIENT STILL IN PAIN, HE NODS HIS HEAD YES WHEN I ASKED, PAGED DR MAI [id number] MAI, NEW ORDER GIVEN FOR FENTANYL Q 2HR PRN [phone] 25 MCG FENTANYL GIVEN PER MAR FLOWSHEET
--- NOTE | 2019-09-16 16:44 | NUR ---
FAMILY AT BEDSIDE, STATUS UPDATED, VOICES NO NEEDS AT THIS TIME
[2019-09-17] VITALS (23 sets, daily range): BP systolic 105–153; BP diastolic 56–94
--- NOTE | 2019-09-17 01:00 | NUR ---
1900 ASSESSMENT DONE SEE FLOW SHEET VSS 2100 MEDS GIVEN PER NOV. VSS. 2300 REASSESSMENT DONE SEE FLOW SHEET. VSS. 0100 PT RESTING IN BED NO SIGNS OF ACUTE DISTRESS NOTED.
--- NOTE | 2019-09-17 03:00 | NUR ---
REASSESSMENT DONE SEE FLOW SHEET VSS.
[2019-09-17 03:56] LABS: HEMATOCRIT 31.9 % (42.0-54.0); HEMOGLOBIN 10.6 g/dL (13.5-17.5); MCH 31.5 pg (26.0-34.0); MCHC 33.2 g/dL (31.0-37.0); MCV 94.9 fL (80.0-100.0); MEAN PLATELET VOLUME 10.4 fL (7.4-10.4); PLATELET COUNT 526 10x3/uL (130-400); RBC 3.36 10x6/uL (4.20-6.10); RDW 11.8 % (11.5-14.5); WBC 13.5 10x3/uL (4.8-10.8)
[2019-09-17 03:59] LABS: EOSINOPHILS 5 % (0-7); LYMPHOCYTES 19 % (15-50); MONOCYTES 8 % (2-11); NEUTROPHILS 59 % (40-80); PLATELET ESTIMATE INCREASED
[2019-09-17 04:08] LABS: CALC OSMOLALITY 278 mosm/kg (275-300); CALCIUM 8.5 mg/dL (8.5-10.1); CARBON DIOXIDE 32.5 mmol/L (21.0-32.0); CHLORIDE - SERUM 102 mmol/L (98-107); CREATININE - SERUM 0.5 mg/dL (0.6-1.3); GLUCOSE 108 mg/dL (74-106); POTASSIUM - SERUM 4.4 mmol/L (3.5-5.1); SODIUM 139 mmol/L (136-145); UREA NITROGEN 13 mg/dL (7-18); eGFR NON AFRICAN AMERICAN > 90 mL/min (90-120)
[2019-09-17 04:14] LABS: ALKALINE PHOSPHATASE 194 U/L (46-116); ALT (SGPT) 93 U/L (10-68); BILIRUBIN - TOTAL 0.45 mg/dL (0.2-1.3); PROTEIN - SERUM 6.1 g/dL (6.4-8.2)
--- NOTE | 2019-09-17 04:51 | NUR ---
IO COLLECTED DAILY WEIGHT COLLECTED. VSS.
--- NOTE | 2019-09-17 07:00 | NUR ---
PT REPORT RECEIVED FROM ASSET PROTECTION ASSOCIATE NURSE. NO VISIBLE SIGNS OF DISTRESS NOTED. SHIFT ASSESSMENT COMPLETED. WILL CONTINUE TO MONITOR
--- NOTE | 2019-09-17 09:00 | NUR ---
PT RESTING IN BED. FAMILY AT BEDSIDE. NO VISIBLE SIGNS OF DISTRESS NOTED. WILL CONTINUE TO MONITOR
--- NOTE | 2019-09-17 10:00 | NUR ---
DR MAI ON UNIT MAKING ROUNDS. RECEIVED ORDER TO DECREASE SEDATION DRUGS. SEE IV FLOW SHEET FOR TITRATIONS.
--- NOTE | 2019-09-17 10:15 | NUR ---
STOPPED 1/[address] MAI.
--- NOTE | 2019-09-17 11:00 | NUR ---
PT RESTING IN BED. NO VISIBLE SIGNS OF DISTRESS NOTED. REFUSING TO TURN. REASSESSMENT COMPELTED. WILL CONTINUE TO MONITOR
--- NOTE | 2019-09-17 12:43 | NUR ---
PT TRIED TO HAVE A BM. HOWEVER UNABLE TO. PT DID HAVE EMESIS EPISODE. NO SIGNS OF DISTRESS NOTED. PT CLEANED UP. WILL CONTINUE TO MONITOR
--- NOTE | 2019-09-17 13:00 | NUR ---
PT RESTING IN BED. ANXIOUS BEHAVIOR NOTED. PT MOVING AROUND FREQUENTLY. PRODUCTIVE COUGH THAT BREAKS VENTILLATOR CIRCUIT. WILL CONTINUE TO MONITOR
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
--- NOTE | 2019-09-17 15:00 | NUR ---
PT CLEANED UP AND GIVEN A BATH. LINENS CHANGED. REASSESSMENT COMPLETED. WILL CONTINUE TO MONITOR
--- NOTE | 2019-09-17 17:00 | NUR ---
PT RESTING IN BED. NO VISIBLE SIGNS OF DISTRESS NOTED. WILL CONTINUE TO MONITOR
--- NOTE | 2019-09-17 19:00 | NUR ---
REPORT RECEIVED. INITIAL ASSESSMENT COMPLETE SEE ICU ASSESSMENT FLOWSHEET. PT AWAKE MOVING ALL EXTREMITIES HAS PULLED TELEMETRY LEADS OFF AND HAS MARIE CATHETER IN HAND DESPITE BUE WRIST RESTRAINTS. PT HAS SEDATIVE MEDICATIONS VIA IV DIPRIVAN. VERSED AND FENTANYL BUT STILL AGITATED. SEE IV FLOWSHEET AND SILICA FILTER OPERATOR FLOWSHEETS FOR SEDATION TITRATION AND SYRINGE CHANGES. TRACH NOTED TO VENT O2 SAT 99%. VSS WILL CONTINUE TO MONITOR. INCREASED DIPRIVAN AT THIS TIME CPOC
--- NOTE | 2019-09-17 22:30 | NUR ---
PT HAS RASH HIVES REDNESS TO BACK BENADRYL GIVEN PT PER EMAR
--- NOTE | 2019-09-17 23:00 | NUR ---
REASSESSMENT COMPLETE PT RESTING QUIETLY WITH EYES CLOSED SEDATION CONTINUES WITH VERSED, DIPRIVAN AND FENTANYL. CPOC
[2019-09-18] VITALS (24 sets, daily range): BP systolic 99–137; BP diastolic 48–86
--- NOTE | 2019-09-18 03:18 | NUR ---
PTS FEET ALL THE WAY UP IN AIR AND ROCKING BACK DOWN IF DOING SITUPS TRYING TO GET FEET OVER SIDERAILS IN SPITE OF INCREASING SEDATION. INCREASED VERSED SEE IV FLOWSHEET AND MACHINE PULLER AND LASTER FLOWSHEET FOR DRIP TITRATIONS.
--- NOTE | 2019-09-18 07:00 | NUR ---
PT REPORT RECEIVED FROM DEPUTY DIRECTOR NURSE. NO VISIBLE SIGNS OF DISTRESS NOTED. SHIFT ASSESSMENT COMPLETED. PT RESTING IN BED. WILL CONTINUE TO MONITOR
--- NOTE | 2019-09-18 07:47 | NUR ---
Nutrition follow-up: Pt remains intubated/trach PEG tube with Pulmocare infusing @ 45 ml/hr Labs reviewed; TG elevated +BM Wt: 161# Pt with aggressive behaviour Noted per nursing some emesis RDN following.
--- NOTE | 2019-09-18 09:00 | NUR ---
PT RESTING IN BED. NO VISIBLE SIGNS OF DISTRESS NOTED. PT COUGHING THICK MUCOUS. ORAL CARE PROVIDED AND PT SUCTIONED OUT. WILL CONTINUE TO MONITOR
--- NOTE | 2019-09-18 09:45 | NUR ---
DR MAI ON UNIT ROUNDING. ORDER RECEIVED TO DECREASE FENTANYL TITRATION.
--- NOTE | 2019-09-18 11:00 | NUR ---
PT RESTING IN BED. NO VISIBLE SIGNS OF DISTRESS NOTED. REASSESSMENT COMPLETED. NO COMPLAINTS NOTED AT THIS TIME. WILL CONTINUE TO MONITOR
--- NOTE | 2019-09-18 13:00 | NUR ---
PT RESTING IN BED. FAMILY IN ROOM. FAMILY MEMBER STATED SHE UNDERSTOOD PT SAYING "THAT HE WANTED TO RIP THE TRACH OUT AND THAT THESE GD PEOPLE NEED TO LEAVE"
--- NOTE | 2019-09-18 15:00 | NUR ---
PT RESTING IN BED. REASSESSMENT COMPELTED. NO VISIBLE SIGNS OF DISTRESS NOTED. WILL CONTINUE TO MONITOR
--- NOTE | 2019-09-18 17:00 | NUR ---
PT RESTING IN BED. NO VISIBLE SIGNS OF DISTRESS NOTED. PT AROUSES EASILY. WILL CONTINUE TO MONITOR
--- NOTE | 2019-09-18 20:45 | NUR ---
BEDSIDE REPORT RECEIVED BY MAXIMILIANO KUMAR. VSS, NO SIGNS OF ACUTE DISTRESS NOTED. PT INTUBATED VIA TRACH, SEDATED. OPENS EYES AND FOLLOWS COMMANDS. TRACH SECURE. BILAT WRIST RESTRAINTS IN PLACE, SKIN WNL. R UPPER ARM PIV PATENT, DRESSING CDI. SEE IV FLOWSHEET. WILL CONTINUE PLAN OF CARE.
--- NOTE | 2019-09-18 21:30 | NUR ---
MEDS GIVEN PER PEG TUBE. TUBE FEEDING HELD FOR 30 MINS.
--- NOTE | 2019-09-18 22:00 | NUR ---
PT OBSERVED THROWING LEGS OOB. REORIENTED.
--- NOTE | 2019-09-18 23:00 | NUR ---
REASSESSMENT COMPLETE, SEE FLOWSHEET. VSS, NO SIGNS OF ACUTE DISTRESS NOTED. WILL CONTINUE TO MONITOR.
[2019-09-19] VITALS (24 sets, daily range): BP systolic 98–147; BP diastolic 51–90
--- NOTE | 2019-09-19 01:00 | NUR ---
DENIES ANY NEEDS. LAYING BACK, EYES OPEN, HOB ELEVATED. PATIENT ORIENTED TO TIME.
--- NOTE | 2019-09-19 01:00 | NUR ---
PT RESTING QUIETLY IN BED. VSS, NO SIGNS OF ACUTE DISTRESS NOTED. WILL MONITOR.
--- NOTE | 2019-09-19 03:00 | NUR ---
REASSESSMENT COMPLETE, SEE FLOWSHEET. PT AGITATED, TRYING TO PULL AT TUBES/LINES. FLIPPED ME OFF AND MOUTHED "FUCK YOU". ATTEMPTED TO REORIENT. SEDATION MEDS TITRATED PER ORDERS. WILL CONTINUE TO MONITOR.
--- NOTE | 2019-09-19 06:00 | NUR ---
SPOKE WITH FAMILY, UPDATE GIVEN.
--- NOTE | 2019-09-19 07:00 | NUR ---
PT REPORT RECEIVED FROM BRASS SORTER NURSE. NO VISIBLE SIGNS OF DISTRESS NOTED. SHIFT ASSESSMENT COMPLETED. WILL CONTINUE TO MONITOR
--- NOTE | 2019-09-19 08:00 | NUR ---
DR MAI CALLED. ORDER RECEIVED TO CUT SEDATION MEDICINES IN HALF. TITRATIONS STARTED TO WEAN DOWN.
--- NOTE | 2019-09-19 08:20 | NUR ---
PT STARTED ON PSV TRIAL. TOLERATING WELL
--- NOTE | 2019-09-19 08:49 | OP ---
PATIENT NAME: KAREN ALMEIDA MEDICAL RECORD: [id number] :93 LOCATION:.[facility] [id number] ADMISSION DATE:09/01/19 SURGEON: SAIDA PETERSON MD DATE OF OPERATION: 09/12/2019 PREOPERATIVE DIAGNOSES: 1. Ventilatory failure. 2. Pneumonia. 3. Acute malnutrition. 4. Suicide attempt. POSTOPERATIVE DIAGNOSES: 1. Ventilatory failure. 2. Pneumonia. 3. Acute malnutrition. 4. Suicide attempt. 5. Extensive purulent material in both lungs. PROCEDURES: 1. Esophagogastroduodenoscopy with antral biopsies. 2. Percutaneous endoscopic gastrostomy tube placement, 20 Vietnamese. 3. Diagnostic and therapeutic bronchoscopy with bronchoalveolar lavage. 4. Percutaneous tracheostomy placement, 8 mm. SURGEON: Saida Peterson MD INFORMATION SYSTEMS SECURITY MANAGER: None. BLOOD LOSS: Minimal. ANESTHESIA: General. COMPLICATIONS: None. The risks, possible complications, and alternatives to the procedure were explained to the patient's family. They elected to proceed. OPERATIVE COURSE: The patient was conveyed to the operating room electively on 09/12/2019. General anesthesia was induced by the anesthesia staff. A bite block was inserted into the mouth. A gastroscope was inserted through the biteblock into the hypopharynx. The esophagus was easily intubated as were the stomach and duodenum. Upon withdrawal, retroflexed and angulus views were obtained. Antral biopsies were obtained. I cleansed the anterior abdominal wall skin. I was able to transilluminate the light from the gastroscope. I chose an area for insertion of the gastrostomy tube. I indented the anterior abdominal wall at this site and was able to visualize this endoscopically. A transverse incision was accomplished here. I then advanced an Angiocath type device and punctured the gastric fundus on the first try. A wire was advanced through the Angiocath. This was grasped with an endoscopic snare and was withdrawn out through the mouth. The wire was attached to a pull-type of gastrostomy tube, which was then pulled into place. Hub and flange devices were attached. I then re-endoscoped the patient's esophagus and stomach. There had been no evidence of false passage or perforation. Attention was then turned to the bronchoscopy and tracheostomy. The bronchoscopic adapter OPERATIVE REPORT [id number] KAREN ALMEIDA was applied to the endotracheal tube. I advanced a well-lubricated bronchoscope down through the endotracheal tube. I identified extensive purulent debris involving both lungs. Bronchoalveolar lavage consisting of normal saline was performed first on the right lung and then the left lung clearing all the segmental bronchi. Some of this fluid was sent for cultures, which were combined cultures. Once I was satisfied that all the segmental bronchi had been cleared of mucopurulent material, I went about performing the tracheostomy. The bronchoscope was removed. The neck had already been prepped and draped. A midline incision was accomplished over the trachea. I dissected down through the skin and subcutaneous tissues and the strap muscles in the midline. I dissected down to the trachea. I identified the second tracheal ring. I then readvanced the bronchoscope. We pulled the endotracheal tube back with the bronchoscope as a single unit. I indented the trachea and was able to visualize this bronchoscopically. I then accessed the trachea with an Angiocath-type catheter aiming it caudad. There was no injury to the back wall of the trachea. A wire was advanced. The Angiocath was removed. Over the wire, a dilator was advanced. Over this, a larger dilator was advanced. I then removed this larger dilator. I then advanced an 8 mm percutaneous tracheostomy tube. The balloon had already been checked and it was patent and without leak. The 8 mm tracheostomy tube was advanced over an obturator. The obturator was removed. The tracheostomy tube balloon was inflated. The wire was removed. I then quickly performed a bronchoscopy through the tracheostomy tube. I then removed the bronchoscope. The inner cannula and the corrugated tubing were then applied to the tracheostomy tube. We began ventilating the patient through the tracheostomy tube. The tracheostomy flanges were sutured to the surrounding skin with 2-0 silks. The skin in the midline was closed around the tracheostomy tube with interrupted 3-0 Vicryls. Tisseel was then injected into the subcutaneous cavity around the tracheostomy tube. Sterile dressings were applied. The patient was then conveyed back to the intensive care unit in critical condition. TRANSINT:[id number] Voice Confirmation ID: [id number] DOCUMENT ID: [id number] SAIDA PETERSON MD at 0849 CC: GUSTAVO BLACK MD and AJITH THOMSON MD [id number] DICTATION DATE: 09/12/19 1534 WATER POLLUTION SCIENTIST: 09/12/192206 ADM IN [facility] [address] [id number]
--- NOTE | 2019-09-19 09:00 | NUR ---
MORNING MEDS GIVEN. PT TOLERATED WELL. FAMILY AT BEDSIDE. UPDATE GIVEN. PT STILL ON PSV TRIAL. WILL CONTINUE TO MONITOR
--- NOTE | 2019-09-19 09:38 | NUR ---
NUTRITION F/U TRACH AND PEG. TOLERATING PULMOCARE AT GOAL RATE 60 CC/HR. WILL CONTINUE TO PROVIDE PULMOCARE, MONITOR PT PROGRESS. RD FOLLOWING
--- NOTE | 2019-09-19 10:00 | NUR ---
DR MAI ON FLOOR ROUNDING. ORDER RECEIVED TO STOP PROPOFOL. WILL TITRATE DOWN AND STOP.
--- NOTE | 2019-09-19 11:00 | NUR ---
PT RESTING IN BED. NO VISIBLE SIGNS OF DISTRESS NOTED. STILL ON PSV TRIAL. TOLERATING WELL. WILL CONTINUE TO MONITOR
--- NOTE | 2019-09-19 13:00 | NUR ---
PT RESTING IN BED. SLIGHTLY ANXIOUS. WILL CONTINUE TO MONITOR. OTHERWISE NO VISIBLE SIGNS OF DISTRESS NOTED.
--- NOTE | 2019-09-19 14:11 | NUR ---
ENTERED PT ROOM TO VENT ALARMING. PT HAD NO COMPLAINTS BUT STATED HE WANTED TO BE KNOCKED OUT. 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 I WANNA BE KNOCKED OUT RIGHT NOW". EXPLAINED TO PT THAT BEING SEDATED WOULD EXTEND HIS HOSPITAL STAY AND THAT HE WOULD HAVE TO GO BACK TO THE VENT BREATHING FOR HIM. PT UNDERSTOOD THAT STAYING AWAKE WOULD BE IN HIS BEST INTEREST
--- NOTE | 2019-09-19 15:00 | NUR ---
REASSESSMENT COMPLETED. PT REORIENTED AND UPDATED ON CURRENT STATUS. NO VISIBLE SIGNS OF DISTRESS NOTED. WILL CONTINUE TO MONITOR
--- NOTE | 2019-09-19 17:00 | NUR ---
PT RESTING IN BED. NO VISIBLE SIGNS OF DISTRESS NOTED. FAMILY AT BEDSIDE. WILL CONTINUE TO MONITOR
--- NOTE | 2019-09-19 19:00 | NUR ---
ASSESSMENT COMPLETED. ALERT, CONFUSED TO TIME AND SITUATION. TRACH WITH VENT. PEG TUBE, NO RESDIUAL. CALL LIGHT IN REACH.
--- NOTE | 2019-09-19 21:00 | NUR ---
CHG BATH GIVEN WITH COMPLETE LINEN CHANGE.
--- NOTE | 2019-09-19 23:00 | NUR ---
RE-ASSESSMENT COMPLETED. NO CHANGES SINCE LAST ASSESSMENT
[2019-09-20] VITALS (23 sets, daily range): BP systolic 17–135; BP diastolic 55–77
--- NOTE | 2019-09-20 03:00 | NUR ---
RE-ASSESSMENT COMPLETED. NO CHANGES SINCE LAST ASSESSMENT
[2019-09-20 04:14] LABS: BASOPHILS 0.7 % (0-2); EOSINOPHILS 1.8 % (0-7); HEMATOCRIT 37.1 % (42.0-54.0); HEMOGLOBIN 12.4 g/dL (13.5-17.5); IMMATURE GRANULOCYTES 3.9 % (0-5); LYMPHOCYTES 9.9 % (15-50); MCH 31.5 pg (26.0-34.0); MCHC 33.4 g/dL (31.0-37.0); MCV 94.2 fL (80.0-100.0); MEAN PLATELET VOLUME 10.4 fL (7.4-10.4); MONOCYTES 8.3 % (2-11); NEUTROPHILS 75.4 % (40-80); RBC 3.94 10x6/uL (4.20-6.10); RDW 11.9 % (11.5-14.5); WBC 19.5 10x3/uL (4.8-10.8)
[2019-09-20 04:15] LABS: PLATELET COUNT 897 10x3/uL (130-400)
--- NOTE | 2019-09-20 05:00 | NUR ---
DENIES ANY NEEDS. NO ISSUES WITH RESTRAINTS OFF
[2019-09-20 05:01] LABS: CALC OSMOLALITY 275 mosm/kg (275-300); CALCIUM 9.2 mg/dL (8.5-10.1); CARBON DIOXIDE 23.3 mmol/L (21.0-32.0); CHLORIDE - SERUM 101 mmol/L (98-107); CREATININE - SERUM 0.5 mg/dL (0.6-1.3); GLUCOSE 136 mg/dL (74-106); MAGNESIUM - SERUM 2.1 mg/dL (1.8-2.4); PHOSPHOROUS 4.2 mg/dL (2.5-4.9); POTASSIUM - SERUM 4.9 mmol/L (3.5-5.1); SODIUM 136 mmol/L (136-145); UREA NITROGEN 17 mg/dL (7-18); eGFR NON AFRICAN AMERICAN > 90 mL/min (90-120)
--- NOTE | 2019-09-20 08:04 | NUR ---
LYING IN BED ON VENT VIA TRACH AT THIS TIME. VSS. NO ACUTE DISTRESS NOTED. PT ALERT. FOLLOWS COMMANDS AND STATES NEEDS. CALL LIGHT IN REACH. PT STATES UNDERSTANDING TO NOT PULL AT LINES. WILL CONTINUE PLAN OF CARE.
--- NOTE | 2019-09-20 09:12 | NUR ---
FAMILY AT BEDSIDE. UPDATES PROVIDED. DR THOMSON CAME TO ROUND ON PT AND SPOKE WIHT PT AND PTS FAMILY, QUESTIONS ANSWERED. VSS. WILL CONTINUE PLAN OF CARE.
--- NOTE | 2019-09-20 11:06 | NUR ---
PEG RESIDUALS NOTED AT 5ML. VSS. NO ACUTE DISTRESS NOTED. WILL CONTINUE PLAN OF CARE.
--- NOTE | 2019-09-20 13:12 | NUR ---
FAMILY AT BEDSIDE AT THIS TIME. VSS. NO ACUTE DISTRESS NOTED. WILL CONTINUE PLAN OF CARE.
--- NOTE | 2019-09-20 14:43 | NUR ---
PER DR MAI, CONTINUE TO DECREASE SEDATION TO TRY TO TURN SEDATION OFF IN ORDER TO SEE IF PT CAN HANDLE A TRACH COLLAR LATER. VSS. WILL CONTINUE PLAN OF CARE.
--- NOTE | 2019-09-20 16:16 | NUR ---
FAMILY AT BEDSIDE AT THIS TIME. VSS. CALL LIGHT IN REACH. UPDATES PROVIDED. PT TURNED Q2H. ORAL CARE PROVIDED Q2H. WILL CONTINUE PLAN OF CARE.
--- NOTE | 2019-09-20 18:20 | NUR ---
LYING IN BED WATCHING TV AT THIS TIME. PT CALM. VSS. NO ACUTE DISTRESS NOTED. WILL CONTINUE PLAN OF CARE.
--- NOTE | 2019-09-20 19:56 | NUR ---
PT AUNT CALLED, PASSWORD PROVIDED, UPDATE GIVEN AND ALL QUESTIONS ANSWERED.
--- NOTE | 2019-09-20 21:31 | NUR ---
PT CALM AND COOPERATIVE, FENTANYL GTT DECREASED TO 25 MCG/HR.
--- NOTE | 2019-09-20 23:05 | NUR ---
PT PLACED ON BEDPAN PER REQUEST, VOIDED SOFT LIGHT BROWN BM, PERICARE AND PARTIAL LINEN CHANGE PROVIDED. POSITIONED FOR COMFORT.
[2019-09-21] VITALS (23 sets, daily range): BP systolic 113–129; BP diastolic 59–93
--- NOTE | 2019-09-21 01:10 | NUR ---
PT INCONTINENT OF MODERATE AMT OF LIGHT BROWN LIQUID STOOL. PARTIAL LINEN CHANGE DONE, PERICARE PROVIDED.
[2019-09-21 04:02] LABS: BASOPHILS 0.6 % (0-2); EOSINOPHILS 2.8 % (0-7); HEMATOCRIT 36.4 % (42.0-54.0); LYMPHOCYTES 10.8 % (15-50); MCH 31.2 pg (26.0-34.0); MCV 94.5 fL (80.0-100.0); MEAN PLATELET VOLUME 10.4 fL (7.4-10.4); NEUTROPHILS 74.8 % (40-80); PLATELET COUNT 941 10x3/uL (130-400); RBC 3.85 10x6/uL (4.20-6.10); RDW 12.2 % (11.5-14.5); WBC 19.8 10x3/uL (4.8-10.8)
[2019-09-21 04:16] LABS: CALC OSMOLALITY 276 mosm/kg (275-300); CALCIUM 9.2 mg/dL (8.5-10.1); CARBON DIOXIDE 25.4 mmol/L (21.0-32.0); CHLORIDE - SERUM 102 mmol/L (98-107); CREATININE - SERUM 0.6 mg/dL (0.6-1.3); GLUCOSE 135 mg/dL (74-106); POTASSIUM - SERUM 4.9 mmol/L (3.5-5.1); SODIUM 136 mmol/L (136-145); UREA NITROGEN 21 mg/dL (7-18); eGFR NON AFRICAN AMERICAN > 90 mL/min (90-120)
--- NOTE | 2019-09-21 04:20 | NUR ---
AM LABS REVIEWED, NOTHING TO TREAT PER ELECTROLYTE PROTOCOL. PT RESTING IN BED WATCHING TV, IN NO APPARENT DISTRESS, NO VISITORS PRESENT AT THIS TIME.
--- NOTE | 2019-09-21 05:59 | NUR ---
PT AUNT CALLED, PASSWORD PROVIDED, UPDATE GIVEN REGARDING OVERNIGHT EVENTS.
--- NOTE | 2019-09-21 07:32 | NUR ---
LYING IN BED ON VENT VIA TRACH AT THIS TIME. PT CALM. VSS. NO ACUTE DISTRESS NOTED. CALL LIGHT IN REACH. WILL CONTINUE PLAN OF CARE.
--- NOTE | 2019-09-21 09:33 | NUR ---
PT NOTIFIED STAFF THAT HE FELT LIKE HE NEEDED TO HAVE A BOWEL MOVEMENT, BED PETE PROVIDED, NO BOWEL MOVEMENT NOTED. JUANCHO CARE AND MARIE CARE PROVIDED BY STAFF. NO ACUTE DISTRESS NOTED. WILL CONTINUE PLAN OF CARE.
--- NOTE | 2019-09-21 10:53 | NUR ---
INCONTINENT BOWEL MOVEMENT NOTED AT THIS TIME. VSS. TOTAL LINEN CHANGE PROVIDED. CHG BATH PROVIDED. NO ACUTE DISTRESS NOTED. WILL CONTINUE PLAN OF CARE.
--- NOTE | 2019-09-21 12:00 | NUR ---
PUT PATIENT ON TRACH COLLAR 40%
--- NOTE | 2019-09-21 12:11 | NUR ---
ON TRACH COLLAR IN ROOM AT THIS TIME. VSS. NO ACUTE DISTRESS NOTED. CALL LIGHT IN REACH. FAMILY AT BEDSIDE. WILL CONTINUE PLAN OF CARE.
--- NOTE | 2019-09-21 13:50 | NUR ---
NOTED PT COMPLAINT OF MARIE CATHETER STATING IT WAS UNCOMFORTABLE AND ASKED FOR IT TO BE REMOVED. PER ORDERS ATTEMPTED TO DC MARIE: AFTER THE WATER WAS REMOVED FROM THE SYRINGE ENSURING THERE WAS NO WATER OR AIR LEFT IN BALLOON THE MARIE CATHETER WAS ATTEMPTED TO BE REMOVED. WHEN ATTEMPTING TO REMOVE MARIE, RESISTANCE WAS NOTED AT THE [place] WHICH DID NOT ALLOW THE MARIE TO BE REMOVED. AFTER MULTIPE ATTEMPTS TO REMOVE MARIE SUCH USING LUBE, NOTED THE MARIE WAS STILL RESISTANT TO REMOVAL. DR MORGAN CALLED TO BE NOTIFIED OF THIS AND HE STATED THAT IF WE ARE UNABLE TO REMOVE MARIE THEN A UROLOGY CONSULT NEEDS TO BE MADE. PHYSICIAN WAS NOTIFIED THAT UROLOGY (DR STEWARD) WAS ON VACATION. DR MORGAN STATED TO ADVANCE MARIE AND KEEP IN PLACE UNTIL CAN BE SEEN BY UROLOGY. AFTER MARIE CATHETER TUBING WAS CLEANSED WITH IODINE USING STERILE GLOVES, THE MARIE WAS ADVANCED PER ORDERS. AAKASH COLORED URINE NOTED FLOWING INTO CLOSED CONTAINER. VSS. NO ACUTE DISTRESS NOTED. WILL CONTINUE PLAN OF CARE.
--- NOTE | 2019-09-21 15:42 | NUR ---
LYING IN BED ON TRACH COLLAR, VSS. FAMILY AT BEDSIDE. NO ACUTE DISTRESS NOTED. AAKASH COLORED URINE FLOWING INTO CLOSED CONTAINER. WILL CONTINUE PLAN OF CARE.
--- NOTE | 2019-09-21 17:40 | NUR ---
SMALL BOWEL MOVEMENT NOTED AT THIS TIME, SMALL BROWN LIQUID. JUANCHO CARE/MARIE CARE PROVIDED. LINEN CHANGE PROVIDED. NO ACUTE DISTRESS NOTED. VSS. WILL CONTINUE PLAN OF CARE.
--- NOTE | 2019-09-21 18:19 | NUR ---
CM SPOKE W/ [facility] DATA. ADVISED PATIENT HAD MEDICAID APPROVED W/ ID NUMBER [id number] EFFECTIVE 08/24/19 [place].
[2019-09-22] VITALS (25 sets, daily range): BP systolic 109–127; BP diastolic 61–84
[2019-09-22 04:32] LABS: CALC OSMOLALITY 272 mosm/kg (275-300); CALCIUM 9.3 mg/dL (8.5-10.1); CARBON DIOXIDE 25.4 mmol/L (21.0-32.0); CHLORIDE - SERUM 100 mmol/L (98-107); CREATININE - SERUM 0.7 mg/dL (0.6-1.3); GLUCOSE 121 mg/dL (74-106); POTASSIUM - SERUM 4.7 mmol/L (3.5-5.1); SODIUM 135 mmol/L (136-145); UREA NITROGEN 19 mg/dL (7-18); eGFR NON AFRICAN AMERICAN > 90 mL/min (90-120)
[2019-09-22 04:51] LABS: HEMATOCRIT 40.8 % (42.0-54.0); HEMOGLOBIN 13.6 g/dL (13.5-17.5); MCH 31.5 pg (26.0-34.0); MCHC 33.3 g/dL (31.0-37.0); MCV 94.4 fL (80.0-100.0); PLATELET COUNT 512 10x3/uL (130-400); RBC 4.32 10x6/uL (4.20-6.10); RDW 12.2 % (11.5-14.5); WBC 28.2 10x3/uL (4.8-10.8)
--- NOTE | 2019-09-22 07:00 | NUR ---
PT RESTING IN CHAIR. NO VISIBLE SIGNS OF DISTRESS NOTED. ON TRACH COLLAR. SHIFT ASSESSMENT COMPLETED. WILL CONTINUE TO MONITOR
[2019-09-22 08:27] LABS: EOSINOPHILS 3 % (0-7); LYMPHOCYTES 10 % (15-50); MONOCYTES 9 % (2-11); NEUTROPHILS 72 % (40-80); PLATELET ESTIMATE INCREASED; PLATELET MORPHOLOGY PLT CLUMPS PRESENT; ROULEAUX OCC
[2019-09-22 08:28] LABS: ANISOCYTOSIS OCC
--- NOTE | 2019-09-22 09:00 | NUR ---
PT BACK IN BED. FAMILY AT BEDSIDE. NO VISIBLE SIGNS OF DISTRESS NOTED. WILL CONTINUE TO MONITOR
--- NOTE | 2019-09-22 09:36 | NUR ---
Nutrition follow-up: Pt has been sitting in chair this morning Trach/PEG Pulmocare infusing @ 60 ml/hr goal rate Labs reviewed +BM 161# Pt tolerating TF at goal. RDN following.
--- NOTE | 2019-09-22 09:40 | NUR ---
STARTED NEW PIV RIGHT UPPER ARM. 20G. PT TOLERATED WELL. NO DISCOMFORT WITH FLUSHING AND NO TENDERNESS NOTED.
--- NOTE | 2019-09-22 11:00 | NUR ---
DR BLACK ON UNIT ROUNDING. UPDATE GIVEN. REASSESSMENT COMPLETED. WILL CONTINUE TO MONITOR
--- NOTE | 2019-09-22 13:00 | NUR ---
PT RESTING IN BED. NO VISIBLE SIGNS OF DISTRESS NOTED. FAMILY AT BEDSIDE. WILL CONTINUE TO MONITOR
--- NOTE | 2019-09-22 15:00 | NUR ---
PT RESTING IN BED. NO VISIBLE SIGNS OF DISTRESS NOTED. REASSESSMENT COMPLETED. WILL CONTINUE TO MONITOR. PT REQUESTING TO GET UP INTO CHAIR. ASSISTED TO BEDSIDE CHAIR. PT TOLERATED WELL.
--- NOTE | 2019-09-22 16:55 | NUR ---
FAMILY AT BEDSIDE. NO VISIBLE SIGNS OF DISTRESS NOTED. PT STATED HE WAS COLD. GIVEN A WARM BLANKET. NO OTHER NEEDS IDENTIFIED AT THIS TIME. WILL CONTINUE TO MONITOR
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
--- NOTE | 2019-09-22 21:47 | NUR ---
DR HEATON NOTIFIED AND REVIEWED PT'S BEHAVIOR AND ASSESSMENT. PT IS A HIGH RISK. SITTER ORDERED AND AT BEDSIDE. RESOURCES GIVEN TO PT AND HE VERBALIZES UNDERSTANDING.
[2019-09-23] VITALS (22 sets, daily range): BP systolic 107–131; BP diastolic 55–96
[2019-09-23 04:09] LABS: CALC OSMOLALITY 277 mosm/kg (275-300); CARBON DIOXIDE 26.5 mmol/L (21.0-32.0); CHLORIDE - SERUM 100 mmol/L (98-107); CREATININE - SERUM 0.8 mg/dL (0.6-1.3); GLUCOSE 120 mg/dL (74-106); POTASSIUM - SERUM 4.6 mmol/L (3.5-5.1); SODIUM 137 mmol/L (136-145); UREA NITROGEN 20 mg/dL (7-18); eGFR NON AFRICAN AMERICAN > 90 mL/min (90-120)
[2019-09-23 05:01] LABS: BASOPHILS 0.4 % (0-2); EOSINOPHILS 2.5 % (0-7); HEMATOCRIT 44.6 % (42.0-54.0); HEMOGLOBIN 15.2 g/dL (13.5-17.5); IMMATURE GRANULOCYTES 3.3 % (0-5); LYMPHOCYTES 10.7 % (15-50); MCH 32.1 pg (26.0-34.0); MCHC 34.1 g/dL (31.0-37.0); MCV 94.1 fL (80.0-100.0); MONOCYTES 9.6 % (2-11); NEUTROPHILS 73.5 % (40-80); PLATELET COUNT 1184 10x3/uL (130-400); RBC 4.74 10x6/uL (4.20-6.10); RDW 12.2 % (11.5-14.5); WBC 27.1 10x3/uL (4.8-10.8)
--- NOTE | 2019-09-23 08:29 | NUR ---
SITTING UP IN BED AWAKE AT THIS TIME. ANSWERS QUESTIONS APPROPIATELY HOWEVER STATES ITEMS SUCH TALKING ABOUT BEING ON FACEBOOK AND STATING HIS MARKERBOARD WAS FACEBOOK, PT ALSO ASKED FOR STAFF TO TURN THE MUSIC UP BECAUSE HE LIKES THE SONG THAT IS PLAYING WHEN THERE IS NO MUSIC PLAYING. FAMILY AT BEDSIDE AND UPDATED. SITTER WATCHING PT. VSS. WILL CONTINUE PLAN OF CARE.
--- NOTE | 2019-09-23 10:41 | NUR ---
IV TO RT UPPER ARM NO LONGER PATENT AND WILL NOT FLUSH, DC, CATHETER TIP INTACT. NEW IV PLACED TO LT FOREARM, 20G, FLUSHES WELL. VSS. WILL CONTINUE PLAN OF CARE.
--- NOTE | 2019-09-23 12:03 | NUR ---
UP IN BED AWAKE AT THIS TIME. CONFUSED. SPEAKING WITH FAMILY STATING THAT SOMEONE KEEPS CALLING HIM AND HIS PULSE OX WAS TELLING HIM THAT HE HAD 26 MISSED CALLS. PT ALSO STATED HE COULD NOT PEE WITH THE "LITTLE BOY" IN THE ROOM WITH HIM BECAUSE HE WAS AFRAID HE WOULD PEE ON THE LITTLE BOY, WHEN THERE WAS NO BOY PRESENT. REORIENTATION PROVIDED. VSS. WILL CONTINUE PLAN OF CARE.
--- NOTE | 2019-09-23 13:56 | NUR ---
RESTING QUIETLY IN BED, AWAKE AND ALERT, WAS NON-VERBAL AT THIS TIME, BUT DID SHAKE HEAD FOR YES/NO QUESTIONS. PT. DENIES SUICIDAL THOUGHTS OR DESIRE AT THIS TIME.
--- NOTE | 2019-09-23 14:02 | NUR ---
SPOKE WITH DR YUSUF REGARDING PT AND PTS FAMILY REQUEST TO STOP SEROQUEL WELL PTS CONFUSION. DR YUSUF STATED THAT HE WOULD REVIEW PTS MEDS. ALSO STATED OKAY FOR PT TO HAVE VISITORS.
--- NOTE | 2019-09-23 15:05 | NUR ---
CHG BATH PROVIDED AT THIS TIME ALONG WITH TOTAL LINEN CHANGE. VSS. PT TRANSFERRED SELF UP IN CHAIR DURING BATH AND THEN STATED HE WANTED TO GET BACK TO BED. WILL CONTINUE PLAN OF CARE.
--- NOTE | 2019-09-23 15:10 | CN ---
PATIENT NAME:KAREN ALMEIDA MEDICAL RECORD: [id number] : 93 LOCATION:[facility].[id number] ADMIT DATE: 09/01/19 ACCOUNT: [id number] CONSULTING PHYSICIAN: ISABELLA HEATON MD REFERRING PHYSICIAN: AJITH THOMSON MD DATE OF CONSULTATION: 09/22/2019 Psychiatric Consultation IDENTIFYING DATA: The patient is 23 years old and he is admitted to the hospital on a voluntary basis. CHIEF COMPLAINT: Suicide attempt. HISTORY OF PRESENT ILLNESS: The patient was initially admitted to the hospital on 09/01/2019. At that time, he had taken an overdose of Xanax and hydrocodone with the intention of killing himself. It is unclear to me how he came to the attention of the authorities or emergency medical management personnel. He subsequently was admitted, evaluated, and ended up having to be intubated. He only recently has been extubated and he still has the trachea and a feeding tube. He has had a long course of severe illness. He denies that he would want to harm himself now, but endorses a lot of depressive symptoms and the circumstances that led to this event have not really changed. He also reports he is addicted to heroin and that he would like substance abuse treatment if possible. MENTAL STATUS EXAMINATION: The patient is awake, alert and oriented to person, place, time and situation. His mood is flat. His affect is constricted. Thought processes are goal directed. Memory, concentration, and abstraction abilities are mildly impaired and he denies that he would seek to harm himself or others as well as psychotic symptoms. ASSESSMENT: 1. Status post overdose. 2. Major depression. 3. Opiate use disorder. PLAN: The patient should be transferred to acute inpatient psychiatric care once medically stabilized. I also think he should have a sitter now that he is awake, alert and interactive. Once he is treated on an inpatient psychiatric unit, a decision will have to be made about whether to refer him for residential substance abuse treatment or outpatient substance abuse treatment, but he certainly is in need of that too. TRANSINT:[id number] Voice Confirmation ID: [id number] DOCUMENT ID: [id number] ISABELLA HEATON MD at 2000 CC: [id number] DICTATION DATE: 09/22/19 0580 SHEET METAL ERECTOR: 09/22/[address] [facility] [address] [id number]
--- NOTE | 2019-09-23 15:47 | NUR ---
PT CONFUSED, TALKING TO THE WALL AND USING HAND TO DIAL NUMBERS. ATTEMPTED TO REORIENTATE, UNSUCCESSFUL. SITTTER WATCHING PT. WILL CONTINUE TO CLOSELY OBSERVE.
--- NOTE | 2019-09-23 16:27 | NUR ---
SPOKE WITH DR HEATON REGARDING PTS INCREASE IN CONFUSION AND SOME AGGITATION. RECIEVED PRN ORDERS.
--- NOTE | 2019-09-23 16:51 | NUR ---
INCREASE AGGITATION NOTED. PT NOTED BECOMING IRRITATED AT FAMILY TELLING AUNT TO "GET THE HELL OUT" AND TALKING WITH GRANDMA ABOUT PHONE CALLS. PRN ATIVAN ADMIN. WILL CONTINUE TO CLOSELY OBSERVE.
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
--- NOTE | 2019-09-23 19:00 | NUR ---
SHIFT ASSESSMENT COMPLETED, PT CARE ASSUMED. MONITORS ON AND WORKING, VITALS STABLE, PT TALKING TO SELF. SEE FLOW SHEET FOR FURTHER DETAILS. WILL CONTINUE TO OBSERVE.
--- NOTE | 2019-09-23 21:00 | NUR ---
PT ASSISTED WITH URINAL. FAMILY MEMBER CALLED, PASSWORD CONFIRMED, UPDATE PROVIDED, WILL CONTINUE TO OBSERVE.
--- NOTE | 2019-09-23 23:00 | NUR ---
PT LYING IN BED RESTING, MONITORS ON AND WORKING, SEE FLOW SHEET FOR FURTHER DETAILS. WILL CONTINUE TO OBSERVE.
[2019-09-24] VITALS (24 sets, daily range): BP systolic 99–121; BP diastolic 53–87
--- NOTE | 2019-09-24 01:00 | NUR ---
PT LYING IN BED RESTING, MONITORS ON AND WORKING, VITALS STABLE, WILL CONTINUE TO OBSERVE.
--- NOTE | 2019-09-24 03:00 | NUR ---
PT ASSISTED WITH URINAL. MONITORS ON AND WORKNG, VITALS STABLE, SEE FLOW SHEET FOR FURTHER DETAILS. WILL CONTINUE TO OBSERVE.
[2019-09-24 04:38] LABS: HEMATOCRIT 40.6 % (42.0-54.0); HEMOGLOBIN 13.6 g/dL (13.5-17.5); MCH 31.6 pg (26.0-34.0); MCHC 33.5 g/dL (31.0-37.0); MCV 94.2 fL (80.0-100.0); MEAN PLATELET VOLUME 10.3 fL (7.4-10.4); PLATELET COUNT 845 10x3/uL (130-400); RBC 4.31 10x6/uL (4.20-6.10); RDW 12.4 % (11.5-14.5); WBC 29.6 10x3/uL (4.8-10.8)
[2019-09-24 04:44] LABS: CALC OSMOLALITY 277 mosm/kg (275-300); CALCIUM 9.2 mg/dL (8.5-10.1); CARBON DIOXIDE 24.6 mmol/L (21.0-32.0); CHLORIDE - SERUM 101 mmol/L (98-107); CREATININE - SERUM 0.8 mg/dL (0.6-1.3); GLUCOSE 104 mg/dL (74-106); POTASSIUM - SERUM 4.6 mmol/L (3.5-5.1); SODIUM 137 mmol/L (136-145); UREA NITROGEN 23 mg/dL (7-18); eGFR NON AFRICAN AMERICAN > 90 mL/min (90-120)
--- NOTE | 2019-09-24 05:00 | NUR ---
PT LYING IN BED RESTING. MONITORS ON AND WORKING, VITALS STABLE. WILL CONTINUE TO OBSERVE.
[2019-09-24 05:02] LABS: LYMPHOCYTES 13 % (15-50); MONOCYTES 3 % (2-11); NEUTROPHILS 79 % (40-80); PLATELET ESTIMATE INCREASED
--- NOTE | 2019-09-24 07:15 | NUR ---
PT REPORT RECEIVED FROM LICENSED TAX CONSULTANT NURSE. NO VISIBLE SIGNS OF DISTRESS NOTED. PT RESTING IN BED COMFORTABLY. SHIFT ASSESSMENT COMPLETED. PT HAS OXYGEN 30% HOWEVER REFUSES TO WEAR. PULSE OX READING IS UPPER 90'S. REFUSED BREAKFAST TRAY STATING HE WANTS TO SLEEP. WILL CONTINUE TO MONITOR
--- NOTE | 2019-09-24 08:57 | NUR ---
PT RESTING IN BED COMFORTABLY. NO VISIBLE SIGNS OF DISTRESS NOTED. PT HAS A SITTER WATCHING HIM. FAMILY IS IN ROOM WELL. WILL CONTINUE TO MONITOR
--- NOTE | 2019-09-24 11:00 | NUR ---
PHYSICAL THERAPY HAS PT UP AND AMBULATING AROUND UNIT. PT TOLERATED WELL WITH NO DESATURATIONS. SLIGHTLY UNSTEADY GAIT. REASSESSMENT COMPLETED AT THIS TIME. WILL CONTINUE TO MONITOR
--- NOTE | 2019-09-24 12:41 | NUR ---
DR BLACK AT BEDSIDE. PERFORMED TRACH CARE. NO VISIBLE SIGNS OF DISTRESS NOTED. POSSIBLY REMOVING TRACH TOMORROW. WILL CONTINUE TO MONITOR
--- NOTE | 2019-09-24 13:00 | NUR ---
PT RESTING IN BED. NO VISIBLE SIGNS OF DISTRESS NOTED. PT TRYING TO GET SOME SLEEP. WILL CONTINUE TO MONITOR
--- NOTE | 2019-09-24 15:00 | NUR ---
PT RESTING IN BEDSIDE CHAIR. NO VISIBLE SIGNS OF DISTRESS NOTED. REASSESSMENT COMPLETED. WILL CONTINUE TO MONITOR
--- NOTE | 2019-09-24 17:29 | NUR ---
PT COMPLAINING THAT THE ROOM WAS SPINNING. FEELS DIZZY AND SICK. VITAL SIGNS WITHIN NORMAL LIMITS. WILL CONTINUE TO MONITOR
--- NOTE | 2019-09-24 21:00 | NUR ---
FAMILY MEMBER CALLED. PASSWORD VERIFIED. UPDATE GIVEN.
--- NOTE | 2019-09-24 22:00 | NUR ---
PT USING BEDSIDE COMMODE FOR BM.
[2019-09-25] VITALS (24 sets, daily range): BP systolic 92–125; BP diastolic 53–87
--- NOTE | 2019-09-25 | NUR ---
RESTING QUIETLY. NO SIGN OF DISTRESS.
--- NOTE | 2019-09-25 04:00 | NUR ---
RESTING QUIETLY. VSS.
[2019-09-25 04:11] LABS: BASOPHILS 0.9 % (0-2); EOSINOPHILS 7.7 % (0-7); HEMATOCRIT 38.7 % (42.0-54.0); HEMOGLOBIN 12.9 g/dL (13.5-17.5); IMMATURE GRANULOCYTES 3.7 % (0-5); LYMPHOCYTES 16.8 % (15-50); MCH 31.5 pg (26.0-34.0); MCHC 33.3 g/dL (31.0-37.0); MCV 94.6 fL (80.0-100.0); MEAN PLATELET VOLUME 9.8 fL (7.4-10.4); MONOCYTES 9.8 % (2-11); NEUTROPHILS 61.1 % (40-80); PLATELET COUNT 811 10x3/uL (130-400); RBC 4.09 10x6/uL (4.20-6.10); RDW 12.6 % (11.5-14.5); WBC 19.9 10x3/uL (4.8-10.8)
[2019-09-25 04:15] LABS: CALC OSMOLALITY 275 mosm/kg (275-300); CALCIUM 9.3 mg/dL (8.5-10.1); CARBON DIOXIDE 24.7 mmol/L (21.0-32.0); CHLORIDE - SERUM 102 mmol/L (98-107); CREATININE - SERUM 0.7 mg/dL (0.6-1.3); GLUCOSE 115 mg/dL (74-106); POTASSIUM - SERUM 4.7 mmol/L (3.5-5.1); SODIUM 136 mmol/L (136-145); UREA NITROGEN 22 mg/dL (7-18); eGFR NON AFRICAN AMERICAN > 90 mL/min (90-120)
--- NOTE | 2019-09-25 07:00 | NUR ---
PT RESTING IN BED COMFORTABLY. REPORT RECEIVED FROM STUDENT MINISTRIES DIRECTOR NURSE. NO VISIBLE SIGNS OF DISTRESS NOTED. SHIFT ASSESSMENT COMPLETED. PT TAKEN BREAKFAST TRAY. WILL CONTINUE TO MONITOR
--- NOTE | 2019-09-25 09:00 | NUR ---
PT RESTING IN BED COMFORTABLY. NO VISIBLE SIGNS OF DISTRESS NOTED AT THIS TIME. PT TOLERATING ICE CHIPS. WILL CONTINUE TO MONITOR
--- NOTE | 2019-09-25 09:01 | NUR ---
PT RESTING IN BED COMFORTABLY. NO ACUTE SIGNS OF DISTRESS NOTED. FAMILY AT BEDSIDE. SITTER OUTSIDE DOOR TO ROOM. WILL CONTINUE TO MONITOR
--- NOTE | 2019-09-25 11:00 | NUR ---
PT RESTING IN BED COMFORTABLY. AROUSES EASILY. REASSESSMENT COMPLETED. WILL CONTINUE TO MONITOR
--- NOTE | 2019-09-25 13:00 | NUR ---
PT RESTING IN BED. NO VISIBLE SIGNS OF DISTRESS NOTED. FAMILY AT BEDSIDE. WILL CONTINUE TO MONITOR
--- NOTE | 2019-09-25 15:16 | NUR ---
PT RESTING IN BED. RT TAKING TRACH OUT. PT TOLERATED WELL. NO DESAT OR SIGNS OF DISTRESS NOTED. WILL CONTINUE TO MONITOR
--- NOTE | 2019-09-25 17:06 | NUR ---
PT RESTING IN BED. FAMILY AT BEDSIDE. NO VISIBLE SIGNS OF DISTRESS NOTED. PT TOLERATING TRACH BEING TAKEN OUT WELL. WILL CONTINUE TO MONITOR
--- NOTE | 2019-09-25 19:10 | NUR ---
PT LYING IN BED RESTING QUEITLY. CL IN REACH. DENIES NEEDS AT THIS TIME. BED IN LOW SIDE RAILS X2. SITTER OUTSIDE ROOM. A/O X4. TRACH REMOVED TODAY. DRESSING INTACT TO WHERE TRACH WAS IN NECK. LUNGS HAVE SOME CRACKLES. BOWEL ACTIVE X4. PT USES URINAL. WILL CONTINUE TO MONITOR.
--- NOTE | 2019-09-25 21:00 | NUR ---
PT RESTING QUEITLY. NO DISTRESS NOTED. PT COMPLAINED OF NOT BEING ABLE TO SLEEP EARLIER ATIVAN WAS GIVEN. CL IN REACH. WCTM
--- NOTE | 2019-09-25 23:00 | NUR ---
PT RESTING QUIETLY. REASSESSMENT COMPLETE. NO DISTRESS NOTED. WCTM
[2019-09-26] VITALS (22 sets, daily range): BP systolic 104–138; BP diastolic 61–88
--- NOTE | 2019-09-26 01:00 | NUR ---
PT RESTING QUIETLY. CL IN REACH. NO DISTRESS NOTED. WCTM
--- NOTE | 2019-09-26 03:00 | NUR ---
PT RESTING QUIETLY. NO DISTRESS NOTED. WCTM. VITALS WNL
[2019-09-26 04:17] LABS: BASOPHILS 0.8 % (0-2); EOSINOPHILS 8.1 % (0-7); HEMATOCRIT 38.3 % (42.0-54.0); HEMOGLOBIN 12.8 g/dL (13.5-17.5); IMMATURE GRANULOCYTES 2.7 % (0-5); LYMPHOCYTES 17.4 % (15-50); MCH 31.5 pg (26.0-34.0); MCHC 33.4 g/dL (31.0-37.0); MCV 94.3 fL (80.0-100.0); MEAN PLATELET VOLUME 10.2 fL (7.4-10.4); MONOCYTES 9.7 % (2-11); NEUTROPHILS 61.3 % (40-80); PLATELET COUNT 656 10x3/uL (130-400); RBC 4.06 10x6/uL (4.20-6.10); RDW 12.5 % (11.5-14.5); WBC 19.9 10x3/uL (4.8-10.8)
[2019-09-26 04:20] LABS: CALC OSMOLALITY 277 mosm/kg (275-300); CALCIUM 9.3 mg/dL (8.5-10.1); CARBON DIOXIDE 23.9 mmol/L (21.0-32.0); CHLORIDE - SERUM 102 mmol/L (98-107); CREATININE - SERUM 0.8 mg/dL (0.6-1.3); GLUCOSE 109 mg/dL (74-106); POTASSIUM - SERUM 4.7 mmol/L (3.5-5.1); SODIUM 137 mmol/L (136-145); UREA NITROGEN 22 mg/dL (7-18); eGFR NON AFRICAN AMERICAN > 90 mL/min (90-120)
--- NOTE | 2019-09-26 05:00 | NUR ---
PT RESTING QUIETLY. CL IN REACH. NO DISTRESS NOTED. WCTM
--- NOTE | 2019-09-26 05:36 | NUR ---
I have reviewed this patient and I concur with the Shift Assessment completed by the Licensed Practical Nurse today this shift.
--- NOTE | 2019-09-26 07:25 | NUR ---
RECIEVED REPORT. PATIETN IS RESTING QUIETLY ON HIS LEFT SIDE. SITTER IS HERE WATCHING PATIENT. PATIENT DENIES ANY NEEDS AT THIS TIME.
--- NOTE | 2019-09-26 08:47 | NUR ---
FAMILY AT BEDSIDE. PATIENT IS SITTING UP FRO BREAKFAST.
--- NOTE | 2019-09-26 09:43 | NUR ---
Nutrition follow-up: Diet: Regular mechanical soft PO intake 100% of meals Trach out Labs reviewed Wt: 161# RDN following.
--- NOTE | 2019-09-26 09:48 | NUR ---
PATIENT GOT UP AND WALKED WITH PHYSICAL THERAPY. HE WALKS WELL, BUT PT SUGGEST THAT HE HAVE A WALKER BECAUSE HE CAN BE UNSTEADY WHEN HE TURNS.
--- NOTE | 2019-09-26 10:34 | NUR ---
PATIENT IS GOING TO BE TRANSFERED TO THE FLOOR. DR BLACK HAS PUT IN A TRANSFER ORDER. PATIENT IS ALERT AND AWAKE AND DENIES ANY NEEDS AT THIS TIME.
--- NOTE | 2019-09-26 12:27 | NUR ---
PATIENT IS SITTING UP IN BED EATTING LUNCH.
--- NOTE | 2019-09-26 14:06 | NUR ---
PATIENT WOULD BE ABLE TO BE TRANSFERED, HOWEVER HE IS STILL ON SUICIDE WATCH, AND THE ONLY WAY THAT HE CAN BE MOVED IS IF HE HAS STAFF AVAILABLE TO WATCH HIM ON THE FLOOR. SO FOR NOW HE WILL STAY WHERE HE IS.
--- NOTE | 2019-09-26 15:48 | NUR ---
PATIENT IS RESTING QUIETLY AT THIS TIME. HE UNDERSTANDS THAT HE WILL BE DISCHARGED SOON, BUT THAT HE DOES NOT HAVE PLACEMENT YET. DENIES ANY NEEDS AT THIS TIME.
--- NOTE | 2019-09-26 17:29 | NUR ---
CALLED DIETARY SEVERAL TIMES, BECAUSE WE NEED TO HAVE THE STYROFOAM TRAY. IT WAS LATE IN COMING, ANS THE PATIENT WAS ANNOYED THAT IT WAS LATE. THE TRAY FINALLY CAME THOUGH.
--- NOTE | 2019-09-26 18:07 | MORECARE ---
CASE MANAGEMENT DISCHARGE SUMMARY PATIENT: KAREN ALMEIDA UNIT: [id number] ADM DATE: 09/01/19 AGE: 23 : [birth year] SEX: M ROOM/BED: D.2307 AUTHOR: MICHAEL,DOC PHYSICIAN: REFERRING PHYSICIAN: AJITH THOMSON MD DATE OF SERVICE: 09/26/19 Discharge Plan Patient Name: [facility]AR[facility] ALMEIDA [facility] 1995 Planned Disposition: Anticipated Discharge Date: Discharge Date: Expected LOS: Initial Reviewer: [email or web address] Initial Review Date: 09/01/2019 Generated: 09/26/19 7:06 pm DCP- Discharge Planning Updated by [email or web address]: Darline Wallace on 09/03/19 4:[address] Patient Name: KAREN ALMEIDA Admission Status: ER Accout number: [id number] Admission Date: 09-01-2019 : 1995 Admission Diagnosis: Attending: AJITH THOMSON Current LOS: 2 Anticipated DC Date: Planned Disposition: Primary Insurance: UNINSURED DISCOUNT PLAN Discharge Planning Comments: CM called and spoke with patients aunt Kyung Orozco [phone]. CM explained role and obtaining verbal consent. Patient lived with his girlfriend up until about a month ago when they broke up. Since that time patient has just been staying with friends here and there where he is independent with his care. Denies any discharge needs at this time. Patient is currently still on vent at this time.CM will continue to follow and assist as needed with discharge planning / needs. Database Technician: Darline Wallace DCP- Discharge Planning Updated by [email or web address]: Darline Wallace on 09/01/19 4:[address] Patient is sedated on vent after a suicide attempt. CM unable to evaluate for d/c planning @ this time. No family available at this time. Patient will most likely need inpatient psych placement once able to evaluate and medically stable for discharge. CM will continue to follow and assist as needed with discharge planning / needs. DCPIA - Discharge Planning Initial Assessment Updated by [email or web address]: Darline Wallace on 09/03/19 5:09 pm * Is the patient Alert and Oriented? Yes * PCP BERTO * Pharmacy [facility] * Preadmission Environment Home Alone * ADLs Independent * Equipment None * Verbal permission to speak to the caregivers and representatives has been obtained from the patient. N/A * Community resources currently utilized None * Additional services required to return to the preadmission environment? No * Can the patient safely return to the preadmission environment? Yes * Has this patient been hospitalized within the prior 30 days at any hospital? No Last DP export: 09/03/19 4:23 Patient Name: KAREN ALMEIDA Page [phone] at 1807 All edits/amendments must be made on the electronic document DICTATION DATE: 09/26/191805 TITLE I INSTRUCTIONAL ASSISTANT: JACK 09/26/191805 RPT#: [id number] DC DATE: STATUS: ADM IN [facility] [address] [place] [address] END OF REPORT
--- NOTE | 2019-09-26 18:16 | MORECARE ---
CASE MANAGEMENT DISCHARGE SUMMARY PATIENT: KAREN ALMEIDA UNIT: [id number] ADM DATE: 09/01/19 AGE: 23 : [birth year] SEX: M ROOM/BED: D.2307 AUTHOR: MICHAEL,DOC PHYSICIAN: REFERRING PHYSICIAN: AJITH THOMSON MD DATE OF SERVICE: 09/26/19 Discharge Plan Patient Name: KAREN ALMEIDA Facility: [facility]:[place] : 1995 Planned Disposition: Anticipated Discharge Date: Discharge Date: Expected LOS: Initial Reviewer: [email or web address] Initial Review Date: 09/01/2019 Generated: 09/26/19 7:15 pm Comments DCP- Discharge Planning Updated by [email or web address]: Darline Wallace on 09/26/19 5:[address] CM has been notified regarding inpatient psych placement. CM was waiting until physicians state that he is medically stable for discharge to facility. Nursing is suppose to be checking with surgeon to find if PEG tube can be removed prior to placement. Most psych facilities don't want patients to have any tubes or objects that could potentially be pulled out. CM will continue to follow and assist as needed with discharge planning / needs. DCP- Discharge Planning Updated by [id number]: Darline Wallace on 09/03/19 4:[address] Patient Name: KAREN ALMEIDA Admission Status: ER Accout number: [id number] Admission Date: 09-01-2019 : 1995 Admission Diagnosis: Attending: AJITH THOMSON Current LOS: 2 Anticipated DC Date: Planned Disposition: Primary Insurance: UNINSURED DISCOUNT PLAN Discharge Planning Comments: CM called and spoke with patients aunt Kyung Orozco [phone]. CM explained role and obtaining verbal consent. Patient lived with his girlfriend up until about a month ago when they broke up. Since that time patient has just been staying with friends here and there where he is independent with his care. Denies any discharge needs at this time. Patient is currently still on vent at this time.CM will continue to follow and assist as needed with discharge planning / needs. Jacquard Fixer: Darline Wallace DCP- Discharge Planning Updated by [email or web address]: Darline Wallace on 09/01/19 4:[address] Patient is sedated on vent after a suicide attempt. CM unable to evaluate for d/c planning @ this time. No family available at this time. Patient will most likely need inpatient psych placement once able to evaluate and medically stable for discharge. CM will continue to follow and assist as needed with discharge planning / needs. DCPIA - Discharge Planning Initial Assessment Updated by [email or web address]: Darline Wallace on 09/03/19 5:09 pm * Is the patient Alert and Oriented? Yes * PCP BERTO * Pharmacy [facility] [address] * Preadmission Environment Home Alone * ADLs Independent * Equipment None * Verbal permission to speak to the caregivers and representatives has been obtained from the patient. N/A * Community resources currently utilized None * Additional services required to return to the preadmission environment? No * Can the patient safely return to the preadmission environment? Yes * Has this patient been hospitalized within the prior 30 days at any hospital? No Last DP export: 09/26/19 5:07 pm Patient Name: KAREN ALMEIDA Page [phone] at 1816 All edits/amendments must be made on the electronic document DICTATION DATE: 09/26/191814 NEWSPAPER CORRESPONDENT: JACK 09/26/191814 RPT#: [id number] DC DATE: STATUS: ADM IN [facility] [address] [place] [address] END OF REPORT
--- NOTE | 2019-09-26 18:30 | NUR ---
I AGREE WITH ASSESSMENTS, CARE, AND INTERVENTION GIVEN BY NURSE
--- NOTE | 2019-09-26 18:42 | NUR ---
PATIENT IS SITTING UP IN BED, HE VOIDED USING THE URINAL. DRESSING TO HIS NECK CHANGED AND DRESSING AROUND HIS G-TUBE CHANGED. IV FLUSHED AND CAPPED. PATIENT DENIES ANY NEEDS AT THIS TIME.
--- NOTE | 2019-09-26 19:00 | NUR ---
PATIENT ALERT AND ORIENTED, WATCHING TV WHEN ENTERING THE ROOM. PATIENT STATES "I'VE HAD AN OKAY DAY." DENIES ANY DISCOMFORT AT THIS TIME. HAS A CLEAN DRESSING TO THE NECK, MIDLINE. PATIENT PERRLA BILATERALLY. HAND ETHYLENE OXIDE PANELBOARD OPERATOR STRONG AND EQUAL, PULSES PALPABLE IN BOTH BRACHIAL AND RADIAL AREAS BILATERALLY. PATIENT HAS CLEAR BREATH SOUNDS BILATERALLY TO AUSCULTATION. J-TUBE NOTED TO ABDOMEN, CLEAN DRESSING AND J TUBE CLAMPED OFF AT THIS TIME. ACTIVE BOWEL SOUNDS X 4. PATIENT DENIES DISCOMFORT UPON ABDOMINAL PALPATION. LOWER EXTREMETIES WARM TO TOUCH, MOVES ON COMMANG. DORSALIS PEDIS PULSES PALPABLE BILATERALLY. WEARING BLUE SOCKS AT THIS TIME. PATIENT TOOK OFF SCD'S, REFUSES TO WEAR AT THIS TIME. REQUESTS HS MEDICATIONS WHEN AVAILABLE. DENIES FURTHER NEEDS AT THIS TIME. CALL LIGHT WITHIN REACH. BED LOCKED AND LOWERED TO LOWEST POSITION. DENIES FURTHER NEEDS AT THIS TIME. CONTINUOUS MONITORING IN PLACE. SUICIDE PRECAUTIONS IN PLACE. CPOC.
--- NOTE | 2019-09-26 21:32 | NUR ---
RESTING WITH NO SIGNS OR SYMPTOMS OF DISTRESS AT THIS TIME. CONTINUAL MONITORING REMAINS IN PLACE. CALL LIGHT IS IN CLOSE REACH OF PATIENT. CPOC.
--- NOTE | 2019-09-26 23:18 | NUR ---
NEW ORDER FOR VANCOMYCIN. CALL TO MANAGER ADVANCED TO PULL MEDICATION FOR THIS NURSE.
--- NOTE | 2019-09-26 23:31 | NUR ---
PATIENT RESTING WHEN ENTERING THE ROOM. WOKE TO ASSESS VITAL SIGNS AND TEMPERATURE. PATIENT DENIES NEEDS. ONE ON ONE OBSERVATION REMAINS IN PLACE. PATIENT RETURNS TO SLEEPING PRIOR TO EXITING THE ROOM. CALL LIGHT IN REACH. CPOC.
[2019-09-27] VITALS (11 sets, daily range): BP systolic 100–132; BP diastolic 61–85
--- NOTE | 2019-09-27 00:58 | NUR ---
VANCOMYCIN INFUSING PER ORDER. SWAB CAPS AND DAY STICKERS IN USE PER PROTOCAL.
--- NOTE | 2019-09-27 02:31 | NUR ---
PATIENT CONTINUES TO REST WITH NO SIGNS OR SYMPTOMS OF DISTRESS. CALL LIGHT IN REACH. CPOC.
[2019-09-27 04:20] LABS: BASOPHILS 0.8 % (0-2); EOSINOPHILS 7.9 % (0-7); HEMATOCRIT 41.1 % (42.0-54.0); HEMOGLOBIN 13.5 g/dL (13.5-17.5); IMMATURE GRANULOCYTES 3.6 % (0-5); LYMPHOCYTES 18.5 % (15-50); MCH 31.5 pg (26.0-34.0); MCHC 32.8 g/dL (31.0-37.0); MEAN PLATELET VOLUME 10.1 fL (7.4-10.4); MONOCYTES 9.1 % (2-11); NEUTROPHILS 60.1 % (40-80); PLATELET COUNT 650 10x3/uL (130-400); RBC 4.28 10x6/uL (4.20-6.10); RDW 12.4 % (11.5-14.5)
--- NOTE | 2019-09-27 04:41 | NUR ---
AROUSES TO VERBAL STIMULI. DENIES NEEDS. REPOSITIONS IN BED. CONTINUOUS MONITORING REMAINS IN PLACE. CPOC
--- NOTE | 2019-09-27 05:56 | NUR ---
I have reviewed this patient and I concur with the Shift Assessment completed by the Licensed Practical Nurse today this shift.
--- NOTE | 2019-09-27 06:18 | NUR ---
ADMINISTERED MORNING MEDICATIONS WITH NO PROBLEMS, PATIENT TOOK AND SWALLOWED WITH NO ISSUES. DENIES FURTHER NEEDS. RETURNED BACK TO BED. CALL LIGHT IN REACH, CONTINUOUS MONITORING REMAINS IN PLACE.
--- NOTE | 2019-09-27 07:33 | NUR ---
UP IN BED WATCHING TV AT THIS TIME. VSS. NO ACUTE DISTRESS NOTED. CALL LIGHT IN REACH. SITTER WATCHING PT. WILL CONTINUE PLAN OF CARE.
--- NOTE | 2019-09-27 09:36 | NUR ---
CHG BATH OFFERED TO PT. PT REFUSED, STATING HE WANTED TO WAIT UNTIL HE GETS TRASNFERRED TO HIS NEW ROOM.
--- NOTE | 2019-09-27 11:11 | NUR ---
PT TRASNFERRED TO ROOM 2107 AT THIS TIME VIA WHEELCHAIR TRANSFERRED WITH ALL PERSONAL ITEMS WITH SITTER. FAMILY NOTIFIED. REPORT CALLED TO RECIEVING NURSE BEFORE TRANSFERRING. VSS. NO ACUTE DISTRESS NOTED. NO FURTHER ACTIONS.
--- NOTE | 2019-09-27 13:05 | NUR ---
PT ARRIVED TO FLOOR VIA WHEELCHAIR WITH STAFF AND SITTER. WANTING TO TAKE A SHOWER. VANC INFUSING ON ARRIVAL. PEG TUBE AND TRACH DRESSING CHANGED POST SHOWER. PT IS ALERT, COOPERATIVE, AND WILLING TO CONVERSE ABOUT SITUATION. KNOWS HE IS WAITING ON PLACEMENT FOR DISCHARGE. STATES HE NEEDS AND IS READY FOR THERAPY.
--- NOTE | 2019-09-27 17:16 | NUR ---
ASSUMED CARE OF PATIENT. PATIENT SITTING UP IN BED, FAMILY AT BEDSIDE. PATIENT CONTINUES TO HAVE ONE ON ONE SITTER. NO DISTRESS.
--- NOTE | 2019-09-27 19:00 | NUR ---
REPORT RECEIVED. PT SITTING UP IN BED WATCHING TV. RR EVEN AND UNLABORED ON RA. SITTER AT BEDSIDE. NO NEEDS EXPRESSED. CALL LIGHT IN REACH. WILL CTM.
[2019-09-28 00:21] VITALS: BP 120/59
[2019-09-28 04:49] VITALS: BP 120/49
--- NOTE | 2019-09-28 07:00 | NUR ---
RECEIVED REPORT. ASSUMED CARE OF PATIENT. PATIENT RESTING WITH EYES CLOSED. SITTER AT BEDSIDE. CALL LIGHT WITHIN REACH. NO DISTRESS.
[2019-09-28 07:53] VITALS: BP 103/62
--- NOTE | 2019-09-28 10:15 | NUR ---
20 GAUGE IV PLACED TO RIGHT FOREARM X 1 STICK. GOOD BLOOD RETURN, EASY FLUSH. TOLERATED IV PLACMENT WELL. TAPED, DATED AND SECURED. VANC INFUSING AT THIS TIME. 20 GAUGE IV REMOVED FROM LEFT FOREARM. CATHETER TIP INTACT. IV SITE WOULD NOT FLUSH WITHOUT LEAKING AROUND INSERTION SITE. NO BLEEDING FROM SITE. 2X2 GAUZE APPLIED AND SECURED WITH TAPE. NO DISTRESS.
[2019-09-28 11:28] VITALS: BP 118/68
[2019-09-28 14:08] LABS: ACID FAST SMEAR Negative (())
[2019-09-28 15:32] VITALS: BP 123/69
--- NOTE | 2019-09-28 15:50 | NUR ---
PATIENT OOB, AMBULATING ON UNIT WITH ONE ON ONE SITTER. NO DISTRESS.
[2019-09-28 20:30] VITALS: BP 143/86
--- NOTE | 2019-09-28 21:35 | NUR ---
INITIAL ROUNDS COMPLETED AT 1910 HRS. PT DENIED AN DISCOMFORT. SITTER AT BEDSIDE. ASSESSMENT COMPLETED AT 1950 HRS. VSS. ALERT AND ORIENTED TO PERSON, PLACE AND TIME. PORTILLO. LUNGS DIMINISHED IN BASES BILAT. PORTILLO. IV TO RFA SL. GAUZE COVERING TRACH STOMA DRY AND INTACT. PEG TUBE CLAMPED. ABD SOFT WITH ACTIVE BS NOTED. VSS. PM MEDS GIVEN. ATIVAN 1MG IN TO R DORSOGLUTEAL PER PT REQUEST FOR AGITATION. PT CURRENTLY WATCHING TV. SR UP X2, CALL LIGHT WITHIN REACH AND SITTER AT BEDSIDE.
--- NOTE | 2019-09-28 22:46 | NUR ---
PT RESTING WITH EYES CLOSED. RESP EVEN AND REGULAR. CALL LIGHT WITHIN REACH AND SITTER AT BEDSIDE.
--- NOTE | 2019-09-29 00:25 | NUR ---
PT RESTING WITH EYES CLOSED IN PRONE POSITION. RESP EVEN AND REGULAR. SITTER AT BEDSIDE. CALL LIGHT WITHIN REACH.
[2019-09-29 00:45] VITALS: BP 127/76
--- NOTE | 2019-09-29 02:05 | NUR ---
PT RESTING WITH EYES CLOSED. RESP EVEN AND REGULAR. SITTER AT BEDSIDE.
--- NOTE | 2019-09-29 04:24 | NUR ---
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 PT MOVED TO ROOM 2100 FOR AIRBORNE ISOLATIOM. RATIONALE EXPLAINED TO PT.
[2019-09-29 04:25] VITALS: BP 111/74
--- NOTE | 2019-09-29 04:26 | NUR ---
RECIEVED CALL FROM MICROBIOLOGY THAT PT NEEDED TO BE PLACED IN AIRBORNE/TB ISOLATION NOW DUE TO POSITIVE CULTURE. PT MOVED FROM ROOM 2107 TO 210/ISOLATION ROOM AT THIS TIME.
--- NOTE | 2019-09-29 06:00 | NUR ---
VSS THROUGHOUT NIGHT. PT DENIED ANY DISCOMFORT. NEEDS MET;WILL CONTINUE TO MONITOR.
--- NOTE | 2019-09-29 07:15 | NUR ---
RECIEVE REPORT. ALERT AND ORIENTED X4. RESTING IN BED. SITTER AT BEDSIDE. DENIES ANY NEEDS AT THIS TIME. CONTINUE PLAN OF CARE AND SAFETY PRECAUTIONS.
[2019-09-29 08:00] VITALS: BP 112/78
[2019-09-29 08:41] LABS: BASOPHILS 0.7 % (0-2); EOSINOPHILS 5.2 % (0-7); HEMATOCRIT 36.5 % (42.0-54.0); HEMOGLOBIN 11.9 g/dL (13.5-17.5); IMMATURE GRANULOCYTES 2.6 % (0-5); LYMPHOCYTES 14.1 % (15-50); MCH 31.2 pg (26.0-34.0); MCHC 32.6 g/dL (31.0-37.0); MCV 95.5 fL (80.0-100.0); MEAN PLATELET VOLUME 9.8 fL (7.4-10.4); MONOCYTES 4.9 % (2-11); NEUTROPHILS 72.5 % (40-80); RBC 3.82 10x6/uL (4.20-6.10); RDW 12.4 % (11.5-14.5); WBC 15.2 10x3/uL (4.8-10.8)
[2019-09-29 08:44] LABS: PLATELET COUNT 498 10x3/uL (130-400)
[2019-09-29 08:47] LABS: CALC OSMOLALITY 278 mosm/kg (275-300); CALCIUM 8.9 mg/dL (8.5-10.1); CARBON DIOXIDE 26.5 mmol/L (21.0-32.0); CHLORIDE - SERUM 106 mmol/L (98-107); CREATININE - SERUM 0.8 mg/dL (0.6-1.3); GLUCOSE 137 mg/dL (74-106); POTASSIUM - SERUM 4.1 mmol/L (3.5-5.1); SODIUM 139 mmol/L (136-145); UREA NITROGEN 11 mg/dL (7-18); eGFR NON AFRICAN AMERICAN > 90 mL/min (90-120)
[2019-09-29 14:55] VITALS: BP 113/68
[2019-09-29 17:42] VITALS: BP 121/74
--- NOTE | 2019-09-29 17:54 | NUR ---
PATIENT RESTING IN BED WITH GRANDMA ATY BEDSIDE VISITING. SMILING AND DENIES ANY THOUGHTS OF SUICIDE.
--- NOTE | 2019-09-29 18:38 | NUR ---
TB SKIN TEST ADMINISTERED LT FA. TB SKIN TEST SHEET ON CHART.
--- NOTE | 2019-09-29 19:30 | NUR ---
PT AWAKE AND ALERT SITTER IS SITTING TO SEE THROUGH WINDOW PT STATES NO NEEDS AT THIS TIME BED IS LOW AND LOCKED AND PT HAS CALL LIGHT AND DROPLET ISOLATION IS BEING OBSERVED
[2019-09-29 20:30] VITALS: BP 117/77
[2019-09-30 04:27] VITALS: BP 123/69
--- NOTE | 2019-09-30 07:10 | NUR ---
REPORT RECIEVED AND PATIENT CARE ASSUMED. PATIENT LAYING IN BED ON RT SIDE WITH EYES CLOSED AND BREATHING EVENLY. PATIENT IN AIRBORNE ISOLATION. ALL PRECAUTIONS TAKEN. SITTER OUTSIDE DOOR [id number] THRU WINDOW DUE TO PATIENT BEING ON SUICIDEE WATCH. WILL CONTINUE WITH PLAN OF CARE. SR UP X 2 BED IN LOW POSITION AND CALL LIGHT IN REACH.
--- NOTE | 2019-09-30 10:36 | NUR ---
PATIENT AWAKE, ALERT AND ORIENTED X 4. PATIENT SITTING UP IN BED VISITING WITH FAMILY. EARLIER PATIENT REQUESTED ATIVAN. ATTEMPTED TO GIVE ATIVAN AND PATIENT STATES THAT HE FEELS BETTER AND DECLINED ATIVAN. PATIENT DENIES ANY ONTHER PAIN OR NEEDS. WILL CONTINUE TO MONITOR.
[2019-09-30 11:01] VITALS: BP 110/74
--- NOTE | 2019-09-30 11:10 | NUR ---
PIV INFILLTRATED. REMOVED IV WITH ENTIRE CATHETER INTACT. DRESSING APPLIED. NEW IV RE-SITED TO LEFT HAND 20 G X 2 ATTEMPTS. PATIENT IS STABLE AND VSS. PATIENT DENIES ANY NEEDS OR PAIN. FAMILY AT BS. WILL CONTINUE TO MONITOR. SR UP X 2 BED IN LOW POSITION AND CALL LIGHT IN REACH.
[2019-09-30 12:00] VITALS: BP 120/73
--- NOTE | 2019-09-30 13:54 | NUR ---
PATIENT RESTING QUEITLY WITH EYES CLOSED AND BREATHING EVENLY. SITTER AT BS. WILL CONTINUE TO MONITOR SR UP X 2 BED IN LOW POSITION AND CALL LIGHT IN REACH.
[2019-09-30 18:20] VITALS: BP 129/73
--- NOTE | 2019-09-30 19:05 | NUR ---
OBSERVING FOR DROPLET ISOLATION AND SITTER IS PRESENT WITH PT BED LOW AND LOCKED AND PT DENIES NEEDS VANC IN IV AT THIS TIME CALL LIGHT IS WITH PT
[2019-09-30 20:00] VITALS: BP 118/84
[2019-10-01 00:40] VITALS: BP 98/64
--- NOTE | 2019-10-01 02:35 | NUR ---
I have reviewed this patient and I concur with the Shift Assessment completed by the Licensed Practical Nurse today this shift.
[2019-10-01 05:43] VITALS: BP 154/71
[2019-10-01 07:54] VITALS: BP 124/83
[2019-10-01 08:11] LABS: FUNGUS MYCOLOGY CULTURE Final report (())
[2019-10-01 09:10] LABS: ACID FAST CULTURE Positive (()); M TUBERCULOSIS Negative (())
[2019-10-01 11:29] VITALS: BP 130/75
--- NOTE | 2019-10-01 13:30 | NUR ---
Nutrition Follow-up: Eating well. Diet: Regular, [facility] Soft PO intake: 92% avg x 9 meals Wt: 146.6# (09/28); 160.9# (09/21 - [facility]) Last BM: 09/30 Labs noted: Glu 137 Meds reviewed -Continue current diet as tolerated. -Need new wt; noted daily wts ordered. -RD following.
[2019-10-01 14:57] VITALS: BP 122/91
--- NOTE | 2019-10-01 16:15 | MORECARE ---
CASE MANAGEMENT DISCHARGE SUMMARY PATIENT: KAREN ALMEIDA UNIT: [id number] ADM DATE: 09/01/19 AGE: 23 : [birth year] SEX: M ROOM/BED: D.2101 AUTHOR: MICHAEL,DOC PHYSICIAN: REFERRING PHYSICIAN: AJITH THOMSON MD DATE OF SERVICE: 10/01/19 Discharge Plan Patient Name: KAREN ALMEIDA [facility] [facility] 1995 Planned Disposition: Inpatient Psych Facility Anticipated Discharge Date: 10/02/19 Discharge Date: Expected LOS: 31 Initial Reviewer: [email or web address] Initial Review Date: 09/01/2019 Generated: 10/01/19 5:15 pm DCP- Discharge Planning Updated by [email or web address]: Darline Wallace on 09/26/19 5:[address] CM has been notified regarding inpatient psych placement. CM was waiting until physicians state that he is medically stable for discharge to facility. Nursing is suppose to be checking with surgeon to find if PEG tube can be removed prior to placement. Most psych facilities don't want patients to have any tubes or objects that could potentially be pulled out. CM will continue to follow and assist as needed with discharge planning / needs. DCP- Discharge Planning Updated by [email or web address]: Darline Wallace on 09/03/19 4:[address] Patient Name: KAREN ALMEIDA Admission Status: ER Accout number: [id number] Admission Date: 09-01-2019 : 1995 Admission Diagnosis: Attending: AJITH THOMSON Current LOS: 2 Anticipated DC Date: Planned Disposition: Primary Insurance: UNINSURED DISCOUNT PLAN Discharge Planning Comments: CM called and spoke with patients aunt Kyung Orozco [phone]. CM explained role and obtaining verbal consent. Patient lived with his girlfriend up until about a month ago when they broke up. Since that time patient has just been staying with friends here and there where he is independent with his care. Denies any discharge needs at this time. Patient is currently still on vent at this time.CM will continue to follow and assist as needed with discharge planning / needs. Brokerage Manager: Darline Wallace DCP- Discharge Planning Updated by [email or web address]: Darline Wallace on 09/01/19 4:[address] Patient is sedated on vent after a suicide attempt. CM unable to evaluate for d/c planning @ this time. No family available at this time. Patient will most likely need inpatient psych placement once able to evaluate and medically stable for discharge. CM will continue to follow and assist as needed with discharge planning / needs. DCPIA - Discharge Planning Initial Assessment Updated by [email or web address]: Darline Wallace on 09/03/19 5:09 pm * Is the patient Alert and Oriented? Yes * PCP BERTO * Pharmacy [facility] [address] [place] * Preadmission Environment Home Alone * ADLs Independent * Equipment None * Verbal permission to speak to the caregivers and representatives has been obtained from the patient. N/A * Community resources currently utilized None * Additional services required to return to the preadmission environment? No * Can the patient safely return to the preadmission environment? Yes * Has this patient been hospitalized within the prior 30 days at any hospital? No External Providers External Provider: [facility] Next Contact Date: 10/02/2019 Service Request Date: Service Type: Resolution: Reviewer: Comments: Last DP export: 09/26/19 5:16 pm Patient Name: KAREN ALMEIDA Page [phone] at 1615 All edits/amendments must be made on the electronic document DICTATION DATE: 10/01/191614 OUTREACH DIRECTOR: JACK 10/01/191614 RPT#: [id number] DC DATE: STATUS: ADM IN [facility] [address] [place] [address] END OF REPORT
--- NOTE | 2019-10-01 16:24 | MORECARE ---
CASE MANAGEMENT DISCHARGE SUMMARY PATIENT: KAREN ALMEIDA UNIT: [id number] ADM DATE: 09/01/19 AGE: 23 : [birth year] SEX: M ROOM/BED: D.2101 AUTHOR: MICHAEL,DOC PHYSICIAN: REFERRING PHYSICIAN: AJITH THOMSON MD DATE OF SERVICE: 10/01/19 Discharge Plan Patient Name: KAREN ALMEIDA [facility] [facility] 1995 Planned Disposition: Inpatient Psych Facility Anticipated Discharge Date: 10/02/19 Discharge Date: Expected LOS: 31 Initial Reviewer: [id number] Initial Review Date: 09/01/2019 Generated: 10/01/19 5:24 pm Comments DCP- Discharge Planning Updated by [email or web address]: Beto Kendall on 10/01/19 3:[address] Patient Name: KAREN ALMEIDA Encounter No: [id number] : 1995 Primary Insurance: MEDICAID [place] Anticipated DC Date: 10-02-2019 Planned Disposition: Inpatient Psych Facility External Planned Provider: [facility] DCP follow-up note: CM SPOKE TO DR. THOMSON WHO INFORMED CM THAT PT IS STABLE AND NEEDS INPATIENT PSYCHIATRIC FACILITY TRANSFER. CM SPOKE TO PT WHO IS IN AGREEMENT WITH PLAN. CM CALLED [facility], PROVIDED REFERRAL INFORMATION TO KENNETH AT [phone]; KENNETH ADVISED THAT HE WILL NEED A CURRENT PSYCHIATRIC CONSULT WITHIN 48 HOURS. CM REVIEWED CHART, PSYCHIATRIC CONSULT HAS BEEN RE ORDERED. CM FAXED REFERRAL TO [facility] AT [phone]. [facility] WILL BEGIN SEEKING INPATIENT TREATMENT FACILITY ONCE NEW PSYCHIATRIC CONSULT IS RECEIVED. Beto Kendall, ALVIN CORONA DCP- Discharge Planning Updated by [id number]: Darline Wallace on 09/26/19 5:[address] CM has been notified regarding inpatient psych placement. CM was waiting until physicians state that he is medically stable for discharge to facility. Nursing is suppose to be checking with surgeon to find if PEG tube can be removed prior to placement. Most psych facilities don't want patients to have any tubes or objects that could potentially be pulled out. CM will continue to follow and assist as needed with discharge planning / needs. DCP- Discharge Planning Updated by [id number]: Darline Wallace on 09/03/19 4:[address] Patient Name: KAREN ALMEIDA Admission Status: ER Accout number: [id number] Admission Date: 09-01-2019 : 1995 Admission Diagnosis: Attending: AJITH THOMSON Current LOS: 2 Anticipated DC Date: Planned Disposition: Primary Insurance: UNINSURED DISCOUNT PLAN Discharge Planning Comments: CM called and spoke with patients aunt Kyung Orozco [phone]. CM explained role and obtaining verbal consent. Patient lived with his girlfriend up until about a month ago when they broke up. Since that time patient has just been staying with friends here and there where he is independent with his care. Denies any discharge needs at this time. Patient is currently still on vent at this time.CM will continue to follow and assist as needed with discharge planning / needs. Sampling Theory Teacher: Darline Wallace DCP- Discharge Planning Updated by [email or web address]: Darline Wallace on 09/01/19 4:[address] Patient is sedated on vent after a suicide attempt. CM unable to evaluate for d/c planning @ this time. No family available at this time. Patient will most likely need inpatient psych placement once able to evaluate and medically stable for discharge. CM will continue to follow and assist as needed with discharge planning / needs. DCPIA - Discharge Planning Initial Assessment Updated by [id number]: Darline Wallace on 09/03/19 5:09 pm * Is the patient Alert and Oriented? Yes * PCP BERTO * Pharmacy [facility] [address] * Preadmission Environment Home Alone * ADLs Independent * Equipment None * Verbal permission to speak to the caregivers and representatives has been obtained from the patient. N/A * Community resources currently utilized None * Additional services required to return to the preadmission environment? No * Can the patient safely return to the preadmission environment? Yes * Has this patient been hospitalized within the prior 30 days at any hospital? No Last DP export: 10/01/19 3:15 pm Patient Name: KAREN ALMEIDA Page [id number] at 1624 All edits/amendments must be made on the electronic document DICTATION DATE: 10/01/19 1624 OPERATIONS ENGINEER: JACK 10/01/19 1624 RPT#: [id number] DC DATE: STATUS: ADM IN [facility] [address] [place] [address] END OF REPORT
--- NOTE | 2019-10-01 19:29 | NUR ---
EVENING ROUNDS COMPLETED. PT AAOX3, VSS, NO S/S OF DISTRESS. PT DENIES ANY NEED FOR PAIN AT THIS TIME. ALTHOUGH STATES HE WILL NEED HIS ANXIETY MEDICATIONS SOMETIME TONIGHT. PEG-TUBE AND TRACHEOSTOMY DRESSING C/D/I. PT DENIES ANY FURTHER NEEDS AT THIS TIME. SITTER AT BEDSIDE. CL WITHIN REACH, BED IN LOW, SR UP X2.
[2019-10-01 20:00] VITALS: BP 128/76
--- NOTE | 2019-10-02 07:33 | NUR ---
PT RESTING. RR EVEN AND UNLABORED. DENIES NEEDS OR PAIN AT THIS TIME. SITTER AT BEDSIDE. BED IN LOWEST POSITION. CALL LIGHT WITHIN REACH. WILL CONTIUE TO MONITOR.
[2019-10-02 08:27] VITALS: BP 125/77
--- NOTE | 2019-10-02 08:57 | MORECARE ---
CASE MANAGEMENT DISCHARGE SUMMARY PATIENT: KAREN ALMEIDA UNIT: [id number] ADM DATE: 09/01/19 AGE: 23 : [birth year] SEX: M ROOM/BED: D.2107 AUTHOR: MICHAEL,DOC PHYSICIAN: REFERRING PHYSICIAN: AJITH THOMSON MD DATE OF SERVICE: 10/02/19 Discharge Plan Patient Name: KAREN ALMEIDA [facility] [facility] 1995 Planned Disposition: Inpatient Psych Facility Anticipated Discharge Date: 10/02/19 Discharge Date: Expected LOS: 31 Initial Reviewer: [id number] Initial Review Date: 09/01/2019 Generated: 10/02/19 9:57 am Comments DCP- Discharge Planning Updated by [email or web address]: Beto Kendall on 10/02/19 7:[address] Patient Name: KAREN ALMEIDA Encounter No: [id number] : 1995 Primary Insurance: MEDICAID [place] Anticipated DC Date: 10-02-2019 Planned Disposition: Inpatient Psych Facility External Planned Provider: [facility] DCP follow-up note: CM REVIEWED CHART, NEW PSYCHIATRIC CONSULT NOTE ENTERED. CM CALLED [facility], PROVIDED REFERRAL INFORMATION JOSE AT [phone]; HOWIE ADVISED THAT THEY HAVE PACKET RECEIVED YESTERDAY. CM FAXED REFERRAL UPDATE TO [facility] AT [phone]. [facility] WILL BEGIN SEEKING INPATIENT TREATMENT FACILITY. Beto Kendall, CASE MANAGEMENT DCP- Discharge Planning Updated by [email or web address]: Beto Kendall on 10/01/19 3:[address] Patient Name: KAREN ALMEIDA Encounter No: [id number] : 1995 Primary Insurance: MEDICAID [place] Anticipated DC Date: 10-02-2019 Planned Disposition: Inpatient Psych Facility External Planned Provider: [facility] DCP follow-up note: CM SPOKE TO DR. THOMSON WHO INFORMED CM THAT PT IS STABLE AND NEEDS INPATIENT PSYCHIATRIC FACILITY TRANSFER. CM SPOKE TO PT WHO IS IN AGREEMENT WITH PLAN. CM CALLED [facility], PROVIDED REFERRAL INFORMATION TO KENNETH AT [phone]; KENNETH ADVISED THAT HE WILL NEED A CURRENT PSYCHIATRIC CONSULT WITHIN 48 HOURS. CM REVIEWED CHART, PSYCHIATRIC CONSULT HAS BEEN RE ORDERED. CM FAXED REFERRAL TO [facility] AT [phone]. [facility] WILL BEGIN SEEKING INPATIENT TREATMENT FACILITY ONCE NEW PSYCHIATRIC CONSULT IS RECEIVED. Beto Kendall, CASE MANAGEMENT DCP- Discharge Planning Updated by [id number]: Darline Wallace on 09/26/19 5:[address] CM has been notified regarding inpatient psych placement. CM was waiting until physicians state that he is medically stable for discharge to facility. Nursing is suppose to be checking with surgeon to find if PEG tube can be removed prior to placement. Most psych facilities don't want patients to have any tubes or objects that could potentially be pulled out. CM will continue to follow and assist as needed with discharge planning / needs. DCP- Discharge Planning Updated by [email or web address]: Darline Wallace on 09/03/19 4:[address] Patient Name: KAREN ALMEIDA Admission Status: ER Accout number: [id number] Admission Date: 09-01-2019 : 1995 Admission Diagnosis: Attending: AJITH THOMSON Current LOS: 2 Anticipated DC Date: Planned Disposition: Primary Insurance: UNINSURED DISCOUNT PLAN Discharge Planning Comments: CM called and spoke with patients aunt Kyung Orozco [phone]. CM explained role and obtaining verbal consent. Patient lived with his girlfriend up until about a month ago when they broke up. Since that time patient has just been staying with friends here and there where he is independent with his care. Denies any discharge needs at this time. Patient is currently still on vent at this time.CM will continue to follow and assist as needed with discharge planning / needs. Camp Tender: Darline Wallace DCP- Discharge Planning Updated by [email or web address]: Darline Wallace on 09/01/19 4:[address] Patient is sedated on vent after a suicide attempt. CM unable to evaluate for d/c planning @ this time. No family available at this time. Patient will most likely need inpatient psych placement once able to evaluate and medically stable for discharge. CM will continue to follow and assist as needed with discharge planning / needs. DCPIA - Discharge Planning Initial Assessment Updated by [email or web address]: Darline Wallace on 09/03/19 5:09 pm * Is the patient Alert and Oriented? Yes * PCP BERTO * Pharmacy [facility] * Preadmission Environment Home Alone * ADLs Independent * Equipment None * Verbal permission to speak to the caregivers and representatives has been obtained from the patient. N/A * Community resources currently utilized None * Additional services required to return to the preadmission environment? No * Can the patient safely return to the preadmission environment? Yes * Has this patient been hospitalized within the prior 30 days at any hospital? No Last DP export: 10/01/19 3:24 pm Patient Name: KAREN ALMEIDA Page 58024 at 0857 All edits/amendments must be made on the electronic document DICTATION DATE: 10/02/19856 BISCUIT MACHINE OPERATOR: JACK 10/02/19856 RPT#: [id number] DC DATE: STATUS: ADM IN [facility] [address] [place] [address] END OF REPORT
--- NOTE | 2019-10-02 09:07 | MORECARE ---
CASE MANAGEMENT DISCHARGE SUMMARY PATIENT: KAREN ALMEIDA UNIT: [id number] ADM DATE: 09/01/19 AGE: 23 : [birth year] SEX: M ROOM/BED: D.2107 AUTHOR: MICHAEL,DOC PHYSICIAN: REFERRING PHYSICIAN: AJITH THOMSON MD DATE OF SERVICE: 10/02/19 Discharge Plan Patient Name: KAREN ALMEIDA [facility] [facility] 1995 Planned Disposition: Inpatient Psych Facility Anticipated Discharge Date: 10/02/19 Discharge Date: Expected LOS: 31 Initial Reviewer: [email or web address] Initial Review Date: 09/01/2019 Generated: 10/02/19 10:06 am Comments DCP- Discharge Planning Updated by [email or web address]: Beto Kendall on 10/02/19 7:[address] Patient Name: KAREN ALMEIDA Encounter No: [id number] : 1995 Primary Insurance: MEDICAID [place] Anticipated DC Date: 10-02-2019 Planned Disposition: Inpatient Psych Facility External Planned Provider: [facility] DCP follow-up note: CM REVIEWED CHART, NEW PSYCHIATRIC CONSULT NOTE ENTERED. CM CALLED [facility], PROVIDED REFERRAL INFORMATION JOSE AT [phone]; HOWIE ADVISED THAT THEY HAVE PACKET RECEIVED YESTERDAY. CM FAXED REFERRAL UPDATE TO [facility] AT [phone]. CM SPOKE TO PT IN ROOM WHO IS STILL WILLING FOR INPATIENT PSYCHIATRIC PLACEMENT. PT STATES HIS FAMILY HAS ARRANGED FOR HIM TO GO TO [facility] IN [place] AFTER HIS PEG TUBE IS REMOVED ON 10-23-19. [facility] WILL BEGIN SEEKING INPATIENT TREATMENT FACILITY. Beto Kendall, CASE CJ DCP- Discharge Planning Updated by [email or web address]: Beto Kendall on 10/01/19 3:[address] Patient Name: KAREN ALMEIDA Encounter No: [id number] : 1995 Primary Insurance: MEDICAID [place] Anticipated DC Date: 10-02-2019 Planned Disposition: Inpatient Psych Facility External Planned Provider: [facility] DCP follow-up note: CM SPOKE TO DR. THOMSON WHO INFORMED CM THAT PT IS STABLE AND NEEDS INPATIENT PSYCHIATRIC FACILITY TRANSFER. CM SPOKE TO PT WHO IS IN AGREEMENT WITH PLAN. CM CALLED [facility], PROVIDED REFERRAL INFORMATION TO KENNETH AT [phone]; KENNETH ADVISED THAT HE WILL NEED A CURRENT PSYCHIATRIC CONSULT WITHIN 48 HOURS. CM REVIEWED CHART, PSYCHIATRIC CONSULT HAS BEEN RE ORDERED. CM FAXED REFERRAL TO [facility] AT [phone]. [facility] WILL BEGIN SEEKING INPATIENT TREATMENT FACILITY ONCE NEW PSYCHIATRIC CONSULT IS RECEIVED. Beto Kendall, CASE MANAGEMENT DCP- Discharge Planning Updated by [id number]: Darline Wallace on 09/26/19 5:[address] CM has been notified regarding inpatient psych placement. CM was waiting until physicians state that he is medically stable for discharge to facility. Nursing is suppose to be checking with surgeon to find if PEG tube can be removed prior to placement. Most psych facilities don't want patients to have any tubes or objects that could potentially be pulled out. CM will continue to follow and assist as needed with discharge planning / needs. DCP- Discharge Planning Updated by [id number]: Darline Wallace on 09/03/19 4:[address] Patient Name: KAREN ALMEIDA Admission Status: Accout number: [id number] Admission Date: 09-01-2019 : 1995 Admission Diagnosis: Attending: AJITH THOMSON Current LOS: 2 Anticipated DC Date: Planned Disposition: Primary Insurance: UNINSURED DISCOUNT PLAN Discharge Planning Comments: CM called and spoke with patients aunt Kyung Orozco [phone]. CM explained role and obtaining verbal consent. Patient lived with his girlfriend up until about a month ago when they broke up. Since that time patient has just been staying with friends here and there where he is independent with his care. Denies any discharge needs at this time. Patient is currently still on vent at this time.CM will continue to follow and assist as needed with discharge planning / needs. Supervisor Water Softener Service: Darline Wallace DCP- Discharge Planning Updated by [email or web address]: Darline Wallace on 09/01/19 4:[address] Patient is sedated on vent after a suicide attempt. CM unable to evaluate for d/c planning @ this time. No family available at this time. Patient will most likely need inpatient psych placement once able to evaluate and medically stable for discharge. CM will continue to follow and assist as needed with discharge planning / needs. DCPIA - Discharge Planning Initial Assessment Updated by [email or web address]: Darline Wallace on 09/03/19 5:09 pm * Is the patient Alert and Oriented? Yes * PCP BERTO * Pharmacy [facility] [address] * Preadmission Environment Home Alone * ADLs Independent * Equipment None * Verbal permission to speak to the caregivers and representatives has been obtained from the patient. N/A * Community resources currently utilized None * Additional services required to return to the preadmission environment? No * Can the patient safely return to the preadmission environment? Yes * Has this patient been hospitalized within the prior 30 days at any hospital? No Last DP export: 10/02/19 7:57 am Patient Name: KAREN ALMEIDA Page [phone] at 0907 All edits/amendments must be made on the electronic document DICTATION DATE: 10/02/19906 LAW LIBRARIAN: JACK 10/02/19906 RPT#: [id number] DC DATE: STATUS: ADM IN [facility] [address] [place] [address] END OF REPORT
--- NOTE | 2019-10-02 10:31 | NUR ---
I have reviewed this patient and I concur with the Shift Assessment completed by the Licensed Practical Nurse today this shift.
[2019-10-02 11:11] VITALS: BP 133/77
[2019-10-02 15:06] VITALS: BP 129/79
--- NOTE | 2019-10-02 15:12 | PN ---
PATIENT:KAREN ALMEIDA MEDICAL RECORD: [id number] LOCATION:[address] ADMISSION DATE: 09/01/19 PROGRESS NOTE DATE OF SERVICE: 10/01/2019 SUBJECTIVE: The patient's case was discussed and his record was reviewed. OBJECTIVE: The patient is depressed, withdrawn, but has no active suicidal thoughts. The sitter is at the door and should remain there. ASSESSMENT: Major depression. PLAN: This patient continues to be depressed. I did not anticipate it would be this long before he could be transferred to inpatient mental health, so I am going to go ahead and start him on a scheduled dose of an antidepressant. I have not changed my recommendation and that he needs to be transferred to inpatient psychiatric care once medically stabilized. I know it has been a month since he made this suicide attempt, but most of that time, he was on a ventilator and his circumstances external to this event have not really changed given the extremely lethal nature of what he did and his intent and how close he came to actually completing this suicide attempt, he most definitely needs to be confined to an inpatient psychiatric unit for observation and treatment. TRANSINT:[id number] Voice Confirmation ID: [id number] DOCUMENT ID: [id number] ISABELLA HEATON MD at 1512 CC: [id number] DICTATION DATE: 10/01/19 1605 PLANOGRAMMER: 10/02/19 0151 ADM IN [facility] [address] [place] [address]
--- NOTE | 2019-10-02 17:45 | NUR ---
SPOKE WITH TRANSFER C[facility]. 6 FACILITIES HAVE DENIED PT DUE TO MEDICAL NEEDS (PEG TUBE). [facility] TO [facility]POND.
--- NOTE | 2019-10-02 19:20 | NUR ---
REPORT RECEIVED, WILL CONTINUE POC. PATIENT IS AAOX4, LYING SUPINE. NO S/S OF DISTRESS OBSERVED, RR EVEN AND UNLABORED ON ROOM AIR. PIV TO LT WRIST, PATENT, SL, DRSG C/D/I. PATIENT DENIES NEEDS AT THIS TIME. CL IN REACH, BED LOCKED AND LOWERED. WILL CTM. SITTER AT BEDSIDE.
[2019-10-02 20:00] VITALS: BP 128/74
[2019-10-02 23:00] VITALS: BP 121/68
--- NOTE | 2019-10-03 07:20 | NUR ---
PT RESTING. RR EVEN AND UNLABORED. DENIES NEEDS OR PAIN AT THIS TIME. BED IN LOWEST POSITION. CALL LIGHT WITHIN REACH. WILL CONTINUE TO MONITOR.
--- NOTE | 2019-10-03 08:16 | MORECARE ---
CASE MANAGEMENT DISCHARGE SUMMARY PATIENT: KAREN ALMEIDA UNIT: [id number] ADM DATE: 09/01/19 AGE: 23 : [birth year] SEX: M ROOM/BED: D.2107 AUTHOR: MICHAEL,DOC PHYSICIAN: REFERRING PHYSICIAN: AJITH THOMSON MD DATE OF SERVICE: 10/03/19 Discharge Plan Patient Name: [facility]AREN ALMEIDA [facility] [facility] 1995 Planned Disposition: Inpatient Psych Facility Anticipated Discharge Date: 10/02/19 Discharge Date: Expected LOS: 31 Initial Reviewer: [id number] Initial Review Date: 09/01/2019 Generated: 10/03/19 9:16 am Comments DCP- Discharge Planning Updated by [id number]: Beto Kendall on 10/03/19 7:[address] Patient Name: KAREN ALMEIDA Encounter No: [id number] : 1995 Primary Insurance: MEDICAID [place] Anticipated DC Date: 10-02-2019 Planned Disposition: Inpatient Psych Facility External Planned Provider: FIRST ACCEPTING INPATIENT PSYCHIATRIC FACILITY DCP follow-up note: CM RECEIVED MESSAGE FROM MAXIMILIANO LARA, [facility] CALLED LATE YESTERDAY, PT HAS BEEN DECLINED [place] AND THE ONLY FACILITY THAT MAY CONSIDER IS [facility]. CM RECEIVED CALL FROM TURNING POINTS SCREENER WHO INFORMED CM THAT THEY DECLINED DUE TO PT HAVING A PEG TUBE, THEY WILL NOT ACCEPT PT WITH A PEG TUBE, EVEN IF IT IS NOT USED; THEY ALSO WILL NOT ACCEPT DUE TO PT HAVING DRESSING CHANGES REQUIRED AND THAT PT IS NO LONGER EXPRESSING SUICIDAL INTENT. CM FAXED REFERRAL UPDATE TO [facility] AT [phone]. [facility] SEEKING INPATIENT TREATMENT FACILITY. PT HAS BEEN DECLINED [place]IDE WITH [facility] BEING THE ONLY FACILITY THAT MAY CONSIDER PATIENT. Beto Kendall, CASE CJ DCP- Discharge Planning Updated by [id number]: Beto Kendall on 10/02/19 7:[address] Patient Name: KAREN ALMEIDA Encounter No: [id number] : 1995 Primary Insurance: MEDICAID [place] Anticipated DC Date: 10-02-2019 Planned Disposition: Inpatient Psych Facility External Planned Provider: FIRST ACCEPTING INPATIENT PSYCHIATRIC FACILITY DCP follow-up note: CM REVIEWED CHART, NEW PSYCHIATRIC CONSULT NOTE ENTERED. CM CALLED [facility], PROVIDED REFERRAL INFORMATION FRANCESCAMADDISON AT [phone]; HOWIE ADVISED THAT THEY HAVE PACKET RECEIVED YESTERDAY. CM FAXED REFERRAL UPDATE TO [facility] AT [phone]. CM SPOKE TO PT IN ROOM WHO IS STILL WILLING FOR INPATIENT PSYCHIATRIC PLACEMENT. PT STATES HIS FAMILY HAS ARRANGED FOR HIM TO GO TO [facility] IN [place] AFTER HIS PEG TUBE IS REMOVED ON 10-23-19. [facility] WILL BEGIN SEEKING INPATIENT TREATMENT FACILITY. ALVIN Joseph DCP- Discharge Planning Updated by [id number]: Beto Kendall on 10/01/19 3:[address] Patient Name: KAREN ALMEIDA Encounter No: [id number] : 1995 Primary Insurance: MEDICAID [facility] DC Date: 10-02-2019 Planned Disposition: Inpatient Psych Facility External Planned Provider: FIRST ACCEPTING INPATIENT PSYCHIATRIC FACILITY DCP follow-up note: RENU SPOKE TO DR. THOMSON WHO INFORMED CM THAT PT IS STABLE AND NEEDS INPATIENT PSYCHIATRIC FACILITY TRANSFER. CM SPOKE TO PT WHO IS IN AGREEMENT WITH PLAN. RENU CALLED [facility], PROVIDED REFERRAL INFORMATION TO KENNETH AT [phone]; KENNETH ADVISED THAT HE WILL NEED A CURRENT PSYCHIATRIC CONSULT WITHIN 48 HOURS. RENU REVIEWED CHART, PSYCHIATRIC CONSULT HAS BEEN RE ORDERED. CM FAXED REFERRAL TO [facility] AT [phone]. [facility] WILL BEGIN SEEKING INPATIENT TREATMENT FACILITY ONCE NEW PSYCHIATRIC CONSULT IS RECEIVED. ALVIN Joseph DCP- Discharge Planning Updated by [id number]: Darline Wallace on 09/26/19 5:[address] CM has been notified regarding inpatient psych placement. CM was waiting until physicians state that he is medically stable for discharge to facility. Nursing is suppose to be checking with surgeon to find if PEG tube can be removed prior to placement. Most psych facilities don't want patients to have any tubes or objects that could potentially be pulled out. CM will continue to follow and assist as needed with discharge planning / needs. DCP- Discharge Planning Updated by [id number]: Darline Wallace on 09/03/19 4:[address] Patient Name: KAREN ALMEIDA Admission Status: ER Accout number: [id number] Admission Date: 09-01-2019 : 1995 Admission Diagnosis: Attending: AJITH THOMSON Current LOS: 2 Anticipated DC Date: Planned Disposition: Primary Insurance: UNINSURED DISCOUNT PLAN Discharge Planning Comments: CM called and spoke with patients aunt Kyung Orozco [phone]. CM explained role and obtaining verbal consent. Patient lived with his girlfriend up until about a month ago when they broke up. Since that time patient has just been staying with friends here and there where he is independent with his care. Denies any discharge needs at this time. Patient is currently still on vent at this time.CM will continue to follow and assist as needed with discharge planning / needs. Mold Carrier: Darline Wallace DCP- Discharge Planning Updated by [id number]: Darline Wallace on 09/01/19 4:[address] Patient is sedated on vent after a suicide attempt. CM unable to evaluate for d/c planning @ this time. No family available at this time. Patient will most likely need inpatient psych placement once able to evaluate and medically stable for discharge. CM will continue to follow and assist as needed with discharge planning / needs. DCPIA - Discharge Planning Initial Assessment Updated by [id number]: Darline Wallace on 09/03/19 5:09 pm * Is the patient Alert and Oriented? Yes * PCP BERTO * Pharmacy [facility] [address] * Preadmission Environment Home Alone * ADLs Independent * Equipment None * Verbal permission to speak to the caregivers and representatives has been obtained from the patient. N/A * Community resources currently utilized None * Additional services required to return to the preadmission environment? No * Can the patient safely return to the preadmission environment? Yes * Has this patient been hospitalized within the prior 30 days at any hospital? No Last DP export: 10/02/19 8:07 am Patient Name: KAREN ALMEIDA Page [id number] at 0816 All edits/amendments must be made on the electronic document DICTATION DATE: 10/03/[address] ROAD ROLLER OPERATOR HOT MIX: JACK 10/03/19815 RPT#: [id number] DC DATE: STATUS: ADM IN [place] [address] [place] [address] END OF REPORT
--- NOTE | 2019-10-03 12:01 | NUR ---
I have reviewed this patient and I concur with the Shift Assessment completed by the Licensed Practical Nurse today this shift.
[2019-10-03 13:18] VITALS: BP 122/69
--- NOTE | 2019-10-03 15:25 | NUR ---
PT LEFT FOR PROCEDURE VIA BED. CONSENTS ARE SIGNED AND IN CHART
--- NOTE | 2019-10-03 15:53 | MORECARE ---
CASE MANAGEMENT DISCHARGE SUMMARY PATIENT: KAREN ALMEIDA UNIT: [id number] ADM DATE: 09/01/19 AGE: 23 : [birth year] SEX: M ROOM/BED: D.2107 AUTHOR: MICHAEL,DOC PHYSICIAN: REFERRING PHYSICIAN: AJITH THOMSON MD DATE OF SERVICE: 10/03/19 Discharge Plan Patient Name: KAREN ALMEIDA [facility] [facility] 1995 Planned Disposition: Inpatient Psych Facility Anticipated Discharge Date: 10/02/19 Discharge Date: Expected LOS: 31 Initial Reviewer: [id number] Initial Review Date: 09/01/2019 Generated: 10/03/19 4:52 pm Comments DCP- Discharge Planning Updated by [id number]: Beto Sultana on 10/03/19 2:[address] Patient Name: KAREN ALMEIDA Encounter No: [id number] : 1995 Primary Insurance: MEDICAID [place] Anticipated DC Date: 10-02-2019 Planned Disposition: Inpatient Psych Facility External Planned Provider: FIRST ACCEPTING INPATIENT PSYCHIATRIC FACILITY DCP follow-up note: CM RECEIVED MESSAGE FROM MAXIMILIANO LARA, [facility] CALLED LATE YESTERDAY, PT HAS BEEN DECLINED [place] AND THE ONLY FACILITY THAT MAY CONSIDER IS [facility]. CM RECEIVED CALL FROM T[employer] SCREENER WHO INFORMED CM THAT THEY DECLINED DUE TO PT HAVING A PEG TUBE, THEY WILL NOT ACCEPT PT WITH A PEG TUBE, EVEN IF IT IS NOT USED; THEY ALSO WILL NOT ACCEPT DUE TO PT HAVING DRESSING CHANGES REQUIRED AND THAT PT IS NO LONGER EXPRESSING SUICIDAL INTENT. CM FAXED REFERRAL UPDATE TO [facility] AT [phone]. [facility] SEEKING INPATIENT TREATMENT FACILITY. PT HAS BEEN DECLINED [facility]WIDE WITH [facility] BEING THE ONLY FACILITY THAT MAY CONSIDER PATIENT. Beto Sultana, CASE MANAGEMENT Appended by Beto Sultana on 10/03/2019 15:47 BEATER OUT: CM CALLED [facility] AND SPOKE TO KENNETH AT [facility], KENNETH CLARIFIED THAT [facility] DECLINED PT DID EVERY OTHER INPATIENT PSYCHIATRIC FACILITY IN THE [facility] EXCEPT [facility] WHO [facility]EE[facility] TELLING KENNETH THAT THE ROLL OR TAPE EDGE MACHINE OPERATOR IS REVIEWING PT FOR ADMISSION. CM SPOKE TO PT AND HIS AUNT SOLO, , PROVIDED UPDATE. SOLO ASKED THAT CM CALL [facility] FOR POSSIBLE PLACEMENT. CM CALLED NEREY[facility] HURTADO AT [phone], LEFT MESSAGE ASKING FOR RETURN CALL. SOLO STATES THAT THE FAMILY HAS NOT ARRANGED ANY TREATMENT AT [facility] OR ANYWHERE ELSE AND STATES THAT PT HAS COMPULSIVE LYING AND ANGER ISSUES WITHOUT PHYSICAL VIOLENCE (JUST VERBAL EXPLOSIIONS). SHE ALSO STATES THAT PT'S DRUG ISSUES TAKE A "BACK SEAT" TO HIS MENTAL ISSUES. ALL PSYCHIATRIC FACILITIES IN STATE DECLINED PT EXCEPT FOR [facility] WHICH IS STILL UNDER REVIEW. BETO SULTANA, CASE MANAGEMENT DCP- Discharge Planning Updated by [id number]: Beto Sultana on 10/02/19 7:[address] Patient Name: KAREN ALMEIDA Encounter No: [id number] : 1995 Primary Insurance: MEDICAID [place] Anticipated DC Date: 10-02-2019 Planned Disposition: Inpatient Psych Facility External Planned Provider: FIRST ACCEPTING INPATIENT PSYCHIATRIC FACILITY DCP follow-up note: CM REVIEWED CHART, NEW PSYCHIATRIC CONSULT NOTE ENTERED. CM CALLED [facility], PROVIDED REFERRAL INFORMATION JOSE AT [phone]; HOWIE ADVISED THAT THEY HAVE PACKET RECEIVED YESTERDAY. CM FAXED REFERRAL UPDATE TO [facility] AT [phone]. CM SPOKE TO PT IN ROOM WHO IS STILL WILLING FOR INPATIENT PSYCHIATRIC PLACEMENT. PT STATES HIS FAMILY HAS ARRANGED FOR HIM TO GO TO [facility] IN [place] AFTER HIS PEG TUBE IS REMOVED ON 10-23-19. [facility] WILL BEGIN SEEKING INPATIENT TREATMENT FACILITY. Beto Sultana CASE CJ DCP- Discharge Planning Updated by [id number]: Beto Sultana on 10/01/19 3:[address] Patient Name: KAREN ALMEIDA Encounter No: [id number] : 1995 Primary Insurance: MEDICAID [place] Anticipated DC Date: 10-02-2019 Planned Disposition: Inpatient Psych Facility External Planned Provider: FIRST ACCEPTING INPATIENT PSYCHIATRIC FACILITY DCP follow-up note: CM SPOKE TO DR. THOMSON WHO INFORMED CM THAT PT IS STABLE AND NEEDS INPATIENT PSYCHIATRIC FACILITY TRANSFER. CM SPOKE TO PT WHO IS IN AGREEMENT WITH PLAN. CM CALLED [facility], PROVIDED REFERRAL INFORMATION TO KENNETH AT [phone]; KENNETH ADVISED THAT HE WILL NEED A CURRENT PSYCHIATRIC CONSULT WITHIN 48 HOURS. CM REVIEWED CHART, PSYCHIATRIC CONSULT HAS BEEN RE ORDERED. CM FAXED REFERRAL TO [facility] AT [phone]. [facility] WILL BEGIN SEEKING INPATIENT TREATMENT FACILITY ONCE NEW PSYCHIATRIC CONSULT IS RECEIVED. Beto Sultana, CASE MANAGEMENT DCP- Discharge Planning Updated by [id number]: Darline Wallace on 09/26/19 5:[address] CM has been notified regarding inpatient psych placement. CM was waiting until physicians state that he is medically stable for discharge to facility. Nursing is suppose to be checking with surgeon to find if PEG tube can be removed prior to placement. Most psych facilities don't want patients to have any tubes or objects that could potentially be pulled out. CM will continue to follow and assist as needed with discharge planning / needs. DCP- Discharge Planning Updated by [id number]: Darline Wallace on 09/03/19 4:[address] Patient Name: KAREN ALMEIDA Admission Status: ER Accout number: [id number] Admission Date: 09-01-2019 : 1995 Admission Diagnosis: Attending: AJITH THOMSON Current LOS: 2 Anticipated DC Date: Planned Disposition: Primary Insurance: UNINSURED DISCOUNT PLAN Discharge Planning Comments: CM called and spoke with patients aunt Kyung Orozco [phone]. CM explained role and obtaining verbal consent. Patient lived with his girlfriend up until about a month ago when they broke up. Since that time patient has just been staying with friends here and there where he is independent with his care. Denies any discharge needs at this time. Patient is currently still on vent at this time.CM will continue to follow and assist as needed with discharge planning / needs. Curing Oven Tender: Darline Wlalace DCP- Discharge Planning Updated by [id number]: Darline Wallace on 09/01/19 4:[address] Patient is sedated on vent after a suicide attempt. CM unable to evaluate for d/c planning @ this time. No family available at this time. Patient will most likely need inpatient psych placement once able to evaluate and medically stable for discharge. CM will continue to follow and assist as needed with discharge planning / needs. DCPIA - Discharge Planning Initial Assessment Updated by [id number]: Darline Wallace on 09/03/19 5:09 pm * Is the patient Alert and Oriented? Yes * PCP BERTO * Pharmacy [facility] * Preadmission Environment Home Alone * ADLs Independent * Equipment None * Verbal permission to speak to the caregivers and representatives has been obtained from the patient. N/A * Community resources currently utilized None * Additional services required to return to the preadmission environment? No * Can the patient safely return to the preadmission environment? Yes * Has this patient been hospitalized within the prior 30 days at any hospital? No Last DP export: 10/03/19 7:17 a Patient Name: KAREN ALMEIDA Page [id number] at 1553 All edits/amendments must be made on the electronic document DICTATION DATE: 10/03/191551 CHIEF TECHNICAL OFFICER: JACK 10/03/191551 RPT#: [id number] DC DATE: STATUS: ADM IN [facility] [address] [place] [address] END OF REPORT
[2019-10-03 17:14] VITALS: BP 127/79
--- NOTE | 2019-10-03 19:10 | NUR ---
REPORT RECEIVED, WILL CONTINUE POC. PATIENT IS AAOX4, LYING IN SEMI-FOWLERS POSITION. NO S/S OF DISTRESS OBSERVED, RR EVEN AND UNLABORED ON ROOM AIR. PATIENT DENIES NEEDS AT THIS TIME. SITTER AT BEDSIDE. CL IN REACH, BED LOCKED AND LOWERED. WILL CTM.
[2019-10-03 20:00] VITALS: BP 120/68
[2019-10-04] VITALS: BP 124/72
--- NOTE | 2019-10-04 05:09 | NUR ---
I have reviewed this patient and I concur with the Shift Assessment completed by the Licensed Practical Nurse today this shift.
--- NOTE | 2019-10-04 07:25 | NUR ---
REPORT RECEIVED FROM INSTRUCTIONAL SUPPORT TECHNICIAN AND PATIENT CARE ASSUMED.PATIENT LAYING IN BED ON BACK AWAKE, ALERT AND ORIENTED X 4. PATIENT IS STABLE AND VSS. PATIENT DENIES ANY NEEDS OR PAIN . WILL CONTINUE WITH PLAN OF CARE. SR UP X 2 BED IN LOW POSITION AND CALL LIGHT IN REACH.
[2019-10-04 09:02] VITALS: BP 122/76
--- NOTE | 2019-10-04 11:23 | NUR ---
PATIENT LAYING IN BED. PATIENT IS STABLE AND UNCHANGED. PATIENT DENIES ANY NEEDS OR PAIN. WILL CONTINUE TO MONITOR. SR UP X 2 BED IN LOW POSITION AND CALL LIGHT IN REACH.
[2019-10-04 13:00] VITALS: BP 124/78
--- NOTE | 2019-10-04 17:18 | NUR ---
PATIENT IS STABLE AND VSS. PATIENT SITTING UP IN BED EATING SUPPER. PATIENT DENIES ANY NEEDS OR PAIN. WILL CONITNUE TO MONITOR. SR UPX 2 BED IN LOW POSITION AND CALL LIGHT IN REACH. SITTER AT BS.
[2019-10-04 18:14] VITALS: BP 132/76
[2019-10-04] MEDS ORDERED: ALBUTEROL SULF8.5 GM INH (18:46)
[2019-10-04] MEDS ORDERED: RisperDAL PO (18:46)
[2019-10-04] MEDS ORDERED: EFFEXOR50 MG PO (18:46)
--- NOTE | 2019-10-04 20:11 | NUR ---
REPORTED TO SIGNING TEACHER MAHSA MERINO THAT DR THOMSON HAD ROUNDED AND AN ORDER WAS WRITTEN FOR PT TO BE DISCHARGED HOME TONIGHT. SIGNING TEACHER STATES SHE WAS AWARE OF THIS.
--- NOTE | 2019-10-04 21:00 | NUR ---
DISCHARGED PT HOME WITH GRANDMOTHER PER DR THOMSON ORDER. 20G IV D/C TO RIGHT HAND. CATHETER TIP INTACT. PAPERWORK SIGNED AND RXs GIVEN TO PT. NO FURTHER NEEDS EXPRESSED. ESCORTED PT AND FAMILY TO FRONT DOOR.
--- NOTE | 2019-10-05 10:46 | PN ---
PATIENT:KAREN ALMEIDA [facility] REC[facility]: [id number] [facility] DATE: 09/01/19 PROGRESS NOTE DATE OF SERVICE: 10/04/2019 SUBJECTIVE: The patient's case was discussed and the chart was reviewed. The patient was interviewed. OBJECTIVE: The patient is alert and oriented to person, place, time and situation. He is fully awake, cooperative and has a euthymic mood and an appropriate affect. He is logical and goal directed in his thought processes and he is able to think abstractly. He strongly denies any thoughts of harming himself or others as well as psychotic symptoms. ASSESSMENT: 1. Major depression. 2. Status post overdose. PLAN: The patient says that the current medicines he is on have helped him. He tells me that he has had a great deal of time to think about his situation and that he very much regrets what he did. He says that he recognizes that it was his drug addiction that was the problem and indeed he was under the influence of narcotics when he did attempt to kill himself. There is a problem with placement in that. No psychiatric facility is going to be able to take him until the PEG tube is removed and that tube cannot be removed for several weeks. The patient's grandmother and aunt are willing to watch him on a 24-hour a day basis. He is completely finished with the withdrawal symptoms from narcotics and in fact he says he does not even have cravings for cigarettes anymore. He has been approved for residential treatment at [facility], but they cannot accept him until the PEG tube was removed. Based on my examination and the overall circumstances, I am fine with discontinuing the sitter and allowing him to go home when he is medically stable. He should be continued on his current psychiatric medicines and he should have follow up on an outpatient basis with the [facility] or [facility]. He is willing to do this. He has been there for treatment before. Naturally, he should also go to the residential program for substance abuse once his PEG tube is removed. TRANSINT:[id number] Voice Confirmation ID: [id number] DOCUMENT ID: [id number] ISABELLA HEATON MD at 1046 CC: [id number] DICTATION DATE: 10/04/19 1201 BRIDGE TEACHER: 10/04/19 1446 DIS IN 10/04/19 [facility] [address] [facility] [place] [address]
--- NOTE | 2019-10-05 12:28 | MORECARE ---
CASE MANAGEMENT DISCHARGE SUMMARY PATIENT: KAREN ALMEIDA UNIT: [id number] ADM DATE: 09/01/19 AGE: 23 : [birth year] SEX: M ROOM/BED: D.2107 AUTHOR: MICHAEL,DOC PHYSICIAN: REFERRING PHYSICIAN: AJITH THOMSON MD DATE OF SERVICE: 10/05/19 Discharge Plan Patient Name: [facility]EN [facility]MEIDA [facility] [facility] 1995 Planned Disposition: Inpatient Psych Facility Anticipated Discharge Date: 10/02/19 Discharge Date: 10/04/2019 Expected LOS: 31 Initial Reviewer: [id number] Initial Review Date: 09/01/2019 Generated: 10/05/19 1:27 pm DCP- Discharge Planning Updated by [id number]: Beto Sultana on 10/03/19 2:[address] Patient Name: KAREN ALMEIDA Encounter No: [id number] : 1995 Primary Insurance: MEDICAID [place] Anticipated DC Date: 10-02-2019 Planned Disposition: Inpatient Psych Facility External Planned Provider: FIRST ACCEPTING INPATIENT PSYCHIATRIC FACILITY DCP follow-up note: CM RECEIVED MESSAGE FROM MAXIMILIANO LARA, THE [facility] CALLED LATE YESTERDAY, PT HAS BEEN DECLINED [place] AND THE ONLY FACILITY THAT MAY CONSIDER IS [facility]. CM RECEIVED CALL FROM [facility] [employer] SCREENER WHO INFORMED CM THAT THEY DECLINED DUE TO PT HAVING A PEG TUBE, THEY WILL NOT ACCEPT PT WITH A PEG TUBE, EVEN IF IT IS NOT USED; THEY ALSO WILL NOT ACCEPT DUE TO PT HAVING DRESSING CHANGES REQUIRED AND THAT PT IS NO LONGER EXPRESSING SUICIDAL INTENT. CM FAXED REFERRAL UPDATE TO TRANSFER CENTER AT [phone]. [facility] SEEKING INPATIENT TREATMENT FACILITY. PT HAS BEEN DECLINED [place]WIDE WITH [facility] BEING THE ONLY FACILITY THAT MAY CONSIDER PATIENT. Beto Sultana, CASE MANAGEMENT Appended by Beto Sultana on 10/03/2019 15:47 ENTRY LEVEL SALES REPRESENTATIVE: CM CALLED [facility]SFER CENTER AND SPOKE TO KENNETH AT [facility]SFER CENTER, KENNETH CLARIFIED THAT [facility] DECLINED PT DID EVERY OTHER INPATIENT PSYCHIATRIC FACILITY IN THE [facility] EXCEPT [facility] WHO KEEPS TELLING KENNETH THAT THE WATER WELL DRILLER IS REVIEWING PT FOR ADMISSION. CM SPOKE TO PT AND HIS AUNT SOLO, , PROVIDED UPDATE. SOLO ASKED THAT CM CALL [facility] FOR POSSIBLE PLACEMENT. CM CALLED [facility] HURTADO AT [phone], LEFT MESSAGE ASKING FOR RETURN CALL. SOLO STATES THAT THE FAMILY HAS NOT ARRANGED ANY TREATMENT AT [facility] OR ANYWHERE ELSE AND STATES THAT PT HAS COMPULSIVE LYING AND ANGER ISSUES WITHOUT PHYSICAL VIOLENCE (JUST VERBAL EXPLOSIIONS). SHE ALSO STATES THAT PT'S DRUG ISSUES TAKE A "BACK SEAT" TO HIS MENTAL ISSUES. ALL PSYCHIATRIC FACILITIES IN STATE DECLINED PT EXCEPT FOR [facility] WHICH IS STILL UNDER REVIEW. BETO SULTANA, CASE MANAGEMENT DCP- Discharge Planning Updated by [id number]: Beto Sultana on 10/02/19 7:[address] Patient Name: KAREN ALMEIDA Encounter No: [id number] : 1995 Primary Insurance: MEDICAID [place] Anticipated DC Date: 10-02-2019 Planned Disposition: Inpatient Psych Facility External Planned Provider: FIRST ACCEPTING INPATIENT PSYCHIATRIC FACILITY DCP follow-up note: CM REVIEWED CHART, NEW PSYCHIATRIC CONSULT NOTE ENTERED. CM CALLED [facility], PROVIDED REFERRAL INFORMATION JOSE AT [phone]; HOWIE ADVISED THAT THEY HAVE PACKET RECEIVED YESTERDAY. CM FAXED REFERRAL UPDATE TO TRANSFER CENTER AT [phone]. CM SPOKE TO PT IN ROOM WHO IS STILL WILLING FOR INPATIENT PSYCHIATRIC PLACEMENT. PT STATES HIS FAMILY HAS ARRANGED FOR HIM TO GO TO [facility] IN [place] AFTER HIS PEG TUBE IS REMOVED ON 10-23-19. [facility] WILL BEGIN SEEKING INPATIENT TREATMENT FACILITY. Beto Sultana CASE MANAGEMENT DCP- Discharge Planning Updated by [id number]: Beto Sultana on 10/01/19 3:[address] Patient Name: KAREN ALMEIDA Encounter No: [id number] : 1995 Primary Insurance: MEDICAID [place] Anticipated DC Date: 10-02-2019 Planned Disposition: Inpatient Psych Facility External Planned Provider: FIRST ACCEPTING INPATIENT PSYCHIATRIC FACILITY DCP follow-up note: CM SPOKE TO DR. THOMSON WHO INFORMED CM THAT PT IS STABLE AND NEEDS INPATIENT PSYCHIATRIC FACILITY TRANSFER. CM SPOKE TO PT WHO IS IN AGREEMENT WITH PLAN. CM CALLED [facility], PROVIDED REFERRAL INFORMATION TO KENNETH AT [phone]; KENNETH ADVISED THAT HE WILL NEED A CURRENT PSYCHIATRIC CONSULT WITHIN 48 HOURS. CM REVIEWED CHART, PSYCHIATRIC CONSULT HAS BEEN RE ORDERED. CM FAXED REFERRAL TO [facility]SFER C[facility] AT [phone]. [facility] WILL BEGIN SEEKING INPATIENT TREATMENT FACILITY ONCE NEW PSYCHIATRIC CONSULT IS RECEIVED. Beto Sultana, CASE MANAGEMENT DCP- Discharge Planning Updated by [id number]: Darline Wallace on 09/26/19 5:[address] CM has been notified regarding inpatient psych placement. CM was waiting until physicians state that he is medically stable for discharge to facility. Nursing is suppose to be checking with surgeon to find if PEG tube can be removed prior to placement. Most psych facilities don't want patients to have any tubes or objects that could potentially be pulled out. CM will continue to follow and assist as needed with discharge planning / needs. DCP- Discharge Planning Updated by CAITLYN: Darline Wallace on 09/03/19 4:[address] Patient Name: KAREN ALMEIDA Admission Status: ER Accout number: [id number] Admission Date: 09-01-2019 : 1995 Admission Diagnosis: Attending: AJITH THOMSON Current LOS: 2 Anticipated DC Date: Planned Disposition: Primary Insurance: UNINSURED DISCOUNT PLAN Discharge Planning Comments: CM called and spoke with patients aunt Kyung Orozco [phone]. CM explained role and obtaining verbal consent. Patient lived with his girlfriend up until about a month ago when they broke up. Since that time patient has just been staying with friends here and there where he is independent with his care. Denies any discharge needs at this time. Patient is currently still on vent at this time.CM will continue to follow and assist as needed with discharge planning / needs. Grey Roll Man: Darline Wallace DCP- Discharge Planning Updated by [id number]: Darline Wallace on 09/01/19 4:[address] Patient is sedated on vent after a suicide attempt. CM unable to evaluate for d/c planning @ this time. No family available at this time. Patient will most likely need inpatient psych placement once able to evaluate and medically stable for discharge. CM will continue to follow and assist as needed with discharge planning / needs. DCPIA - Discharge Planning Initial Assessment Updated by [id number]: Darline Wallace on 09/03/19 5:09 pm * Is the patient Alert and Oriented? Yes * PCP BERTO * Pharmacy [facility] [address] * Preadmission Environment Home Alone * ADLs Independent * Equipment None * Verbal permission to speak to the caregivers and representatives has been obtained from the patient. N/A * Community resources currently utilized None * Additional services required to return to the preadmission environment? No * Can the patient safely return to the preadmission environment? Yes * Has this patient been hospitalized within the prior 30 days at any hospital? No Last DP export: 10/03/19 2:53 p Patient Name: KAREN ALMEIDA Page [id number] at 1228 All edits/amendments must be made on the electronic document DICTATION DATE: 10/05/191226 FARM CREW MEMBER: JACK 10/05/197 RPT#: [id number] DC DATE:10/04/19 STATUS: DIS IN [facility] [address] [place] [address] END OF REPORT
--- NOTE | 2019-10-06 08:19 | MORECARE ---
CASE MANAGEMENT DISCHARGE SUMMARY PATIENT: KAREN ALMEIDA UNIT: [id number] ADM DATE: 09/01/19 AGE: 23 : [birth year] SEX: M ROOM/BED: D.2107 AUTHOR: MICHAEL,DOC PHYSICIAN: REFERRING PHYSICIAN: AJITH THOMSON MD DATE OF SERVICE: 10/06/19 Discharge Plan Patient Name: KAREN ALMEIDA [facility] [facility] 1995 Planned Disposition: Inpatient Psych Facility Anticipated Discharge Date: 10/04/19 Discharge Date: 10/04/2019 Expected LOS: 33 Initial Reviewer: [id number] Initial Review Date: 09/01/2019 Generated: 10/06/19 9:19 am DCP- Discharge Planning Updated by [id number]: Beto Sultana on 10/03/19 2:[address] Patient Name: KAREN ALMEIDA Encounter No: [id number] : 1995 Primary Insurance: MEDICAID [place] Anticipated DC Date: 10-02-2019 Planned Disposition: Inpatient Psych Facility External Planned Provider: FIRST ACCEPTING INPATIENT PSYCHIATRIC FACILITY DCP follow-up note: CM RECEIVED MESSAGE FROM MAXIMILIANO LARA, THE [facility] CALLED LATE YESTERDAY, PT HAS BEEN DECLINED [place]WIDE AND THE ONLY FACILITY THAT MAY CONSIDER IS [facility]. CM RECEIVED CALL FROM [employer] SCREENER WHO INFORMED CM THAT THEY DECLINED DUE TO PT HAVING A PEG TUBE, THEY WILL NOT ACCEPT PT WITH A PEG TUBE, EVEN IF IT IS NOT USED; THEY ALSO WILL NOT ACCEPT DUE TO PT HAVING DRESSING CHANGES REQUIRED AND THAT PT IS NO LONGER EXPRESSING SUICIDAL INTENT. CM FAXED REFERRAL UPDATE TO [facility]SFER CENTER AT [phone]. [facility] SEEKING INPATIENT TREATMENT FACILITY. PT HAS BEEN DECLINED STATEWIDE WITH [facility] BEING THE ONLY FACILITY THAT MAY CONSIDER PATIENT. Beto Sultana, CASE MANAGEMENT Appended by Beto Sultana on 10/03/2019 15:47 RIVET HOLE MACHINE OPERATOR: CM CALLED [facility] AND SPOKE TO KENNETH AT [facility], KENNETH CLARIFIED THAT [facility] DECLINED PT DID EVERY OTHER INPATIENT PSYCHIATRIC FACILITY IN THE [facility] EXCEPT [facility] WHO KEEPS TELLING KENNETH THAT THE SERVICE TECHNICIAN IS REVIEWING PT FOR ADMISSION. CM SPOKE TO PT AND HIS AUNT SOLO, , PROVIDED UPDATE. SOLO ASKED THAT CM CALL [facility] FOR POSSIBLE PLACEMENT. CM CALLED [facility] HURTADO AT [phone], LEFT MESSAGE ASKING FOR RETURN CALL. SOLO STATES THAT THE FAMILY HAS NOT ARRANGED ANY TREATMENT AT [facility] OR ANYWHERE ELSE AND STATES THAT PT HAS COMPULSIVE LYING AND ANGER ISSUES WITHOUT PHYSICAL VIOLENCE (JUST VERBAL EXPLOSIIONS). SHE ALSO STATES THAT PT'S DRUG ISSUES TAKE A "BACK SEAT" TO HIS MENTAL ISSUES. ALL PSYCHIATRIC FACILITIES IN STATE DECLINED PT EXCEPT FOR [facility] WHICH IS STILL UNDER REVIEW. BETO SULTANA, CASE MANAGEMENT DCP- Discharge Planning Updated by [id number]: Beto Sultana on 10/02/19 7:[address] Patient Name: KAREN ALMEIDA Encounter No: [id number] : 1995 Primary Insurance: MEDICAID [place] Anticipated DC Date: 10-02-2019 Planned Disposition: Inpatient Psych Facility External Planned Provider: FIRST ACCEPTING INPATIENT PSYCHIATRIC FACILITY DCP follow-up note: CM REVIEWED CHART, NEW PSYCHIATRIC CONSULT NOTE ENTERED. CM CALLED [facility], PROVIDED REFERRAL INFORMATION JOSE AT [phone]; HOWIE ADVISED THAT THEY HAVE PACKET RECEIVED YESTERDAY. CM FAXED REFERRAL UPDATE TO [facility]SFER C[facility] AT [phone]. CM SPOKE TO PT IN ROOM WHO IS STILL WILLING FOR INPATIENT PSYCHIATRIC PLACEMENT. PT STATES HIS FAMILY HAS ARRANGED FOR HIM TO GO TO [facility] IN [place] AFTER HIS PEG TUBE IS REMOVED ON 10-23-19. [facility] WILL BEGIN SEEKING INPATIENT TREATMENT FACILITY. Beto Sultana CASE MANAGEMENT DCP- Discharge Planning Updated by [id number]: Beto Sultana on 10/01/19 3:[address] Patient Name: KAREN ALMEIDA Encounter No: [id number] : 1995 Primary Insurance: MEDICAID [place] Anticipated DC Date: 10-02-2019 Planned Disposition: Inpatient Psych Facility External Planned Provider: FIRST ACCEPTING INPATIENT PSYCHIATRIC FACILITY DCP follow-up note: CM SPOKE TO DR. THOMSON WHO INFORMED CM THAT PT IS STABLE AND NEEDS INPATIENT PSYCHIATRIC FACILITY TRANSFER. CM SPOKE TO PT WHO IS IN AGREEMENT WITH PLAN. CM CALLED [facility], PROVIDED REFERRAL INFORMATION TO KENNETH AT [phone]; KENNETH ADVISED THAT HE WILL NEED A CURRENT PSYCHIATRIC CONSULT WITHIN 48 HOURS. CM REVIEWED CHART, PSYCHIATRIC CONSULT HAS BEEN RE ORDERED. CM FAXED REFERRAL TO TRANSFER CENTER AT [phone]. [facility] WILL BEGIN SEEKING INPATIENT TREATMENT FACILITY ONCE NEW PSYCHIATRIC CONSULT IS RECEIVED. Beto Sultana, CASE MANAGEMENT DCP- Discharge Planning Updated by [id number]: Darline Wallace on 09/26/19 5:[address] CM has been notified regarding inpatient psych placement. CM was waiting until physicians state that he is medically stable for discharge to facility. Nursing is suppose to be checking with surgeon to find if PEG tube can be removed prior to placement. Most psych facilities don't want patients to have any tubes or objects that could potentially be pulled out. CM will continue to follow and assist as needed with discharge planning / needs. DCP- Discharge Planning Updated by CAITLYN: Darline Wallace on 09/03/19 4:[address] Patient Name: KAREN ALMEIDA Admission Status: ER Accout number: [id number] Admission Date: 09-01-2019 : 1995 Admission Diagnosis: Attending: AJITH THOMSON Current LOS: 2 Anticipated DC Date: Planned Disposition: Primary Insurance: UNINSURED DISCOUNT PLAN Discharge Planning Comments: CM called and spoke with patients aunt Kyung Orozco [phone]. CM explained role and obtaining verbal consent. Patient lived with his girlfriend up until about a month ago when they broke up. Since that time patient has just been staying with friends here and there where he is independent with his care. Denies any discharge needs at this time. Patient is currently still on vent at this time.CM will continue to follow and assist as needed with discharge planning / needs. Supervisor International Reservations: Darline Wallace DCP- Discharge Planning Updated by [id number]: Darline Wallace on 09/01/19 4:[address] Patient is sedated on vent after a suicide attempt. CM unable to evaluate for d/c planning @ this time. No family available at this time. Patient will most likely need inpatient psych placement once able to evaluate and medically stable for discharge. CM will continue to follow and assist as needed with discharge planning / needs. DCPIA - Discharge Planning Initial Assessment Updated by [email or web address]: Darline Wallace on 09/03/19 5:09 pm * Is the patient Alert and Oriented? Yes * PCP BERTO * Pharmacy [facility] [address] * Preadmission Environment Home Alone * ADLs Independent * Equipment None * Verbal permission to speak to the caregivers and representatives has been obtained from the patient. N/A * Community resources currently utilized None * Additional services required to return to the preadmission environment? No * Can the patient safely return to the preadmission environment? Yes * Has this patient been hospitalized within the prior 30 days at any hospital? No Last DP export: 10/05/19 11:28 a Patient Name: KAREN ALMEIDA Page [id number] at 0819 All edits/amendments must be made on the electronic document DICTATION DATE: 10/06/19818 SPECIAL AGENT FBI: JACK 10/06/19818 RPT#: [id number] DC DATE:10/04/19 STATUS: DIS IN [facility] [address] [place] [address] END OF REPORT
--- NOTE | 2019-10-06 09:03 | MORECARE ---
CASE MANAGEMENT DISCHARGE SUMMARY PATIENT: KAREN ALMEIDA UNIT: [id number] ADM DATE: 09/01/19 AGE: 23 : [birth year] SEX: M ROOM/BED: D.2100 AUTHOR: JAZMINE RODRIGUEZ PHYSICIAN: REFERRING PHYSICIAN: AJITH THOMSON MD DATE OF SERVICE: 10/06/19 Discharge Plan Patient Name: KAREN ALMEIDA Facility: [facility]:[place] : 1995 Planned Disposition: Inpatient Psych Facility Anticipated Discharge Date: 10/04/19 Discharge Date: 10/04/2019 Expected LOS: 33 Initial Reviewer: [id number] Initial Review Date: 09/01/2019 Generated: 10/06/19 10:03 am Comments DCP- Discharge Planning Updated by [id number]: Meaghan Sultana on 10/06/19 7:[address] Patient Name: KAREN ALMEIDA Encounter No: [id number] : 1995 Primary Insurance: MEDICAID [place] Anticipated DC Date: 10-04-2019 Planned Disposition: HOME DCP follow-up note: CM RECEIVED CALL FROM PT WHO STATES HE WAS DISCHARGED HOME OVER THE WEEKEND. PT STATES HE NEEDS A FOLLOW UP APPOINTMENT WITH HIS DOCTOR, WANTS TO KNOW HOW TO GET HIS PRESCRIPTIONS ONCE THE ONES HE WAS GIVEN AT DISCHARGE RUN OUT AND NEEDS AN APPOINTMENT WITH [facility] FOR OUTPATIENT FOLLOW UP. CM REVIEWED CHART AND INFORMED PT THAT HE NEEDS TO CALL DR. SANCHEZ OFFICE FOR A ONE WEEK FOLLOW UP. PT STATES HE HAS THE NUMBER TO DR. THOMSON PROVIDED ON HIS DISCHARGE INSTRUCTIONS. PT STATES DR. THOMSON IS ALSO HIS PRIMARY CARE DOCTOR. CM ADVISED THAT DR. THOMSON WILL MANAGE PT'S MEDICATIONS ALSO AND MAY DEFER PSYCHIATRIC MEDICATIONS TO [facility]. CM PROVIDED PT WITH CONTACT ADDRESS AND PHONE NUMBER TO [facility], PROVIDED DATES AND TIMES OF WALK IN CLINIC. PT IS AWARE OF LOCATION HE HAS BEEN THERE IN THE PAST AND WILL GO THERE TODAY FOR FOLLOW UP. PT DENIES FURTHER NEEDS. MEAGHAN SULTANA, CASE MANAGEMENT DCP- Discharge Planning Updated by [id number]: Meaghan Sultana on 10/03/19 2:[address] Patient Name: KAREN ALMEIDA Encounter No: [id number] : 1995 Primary Insurance: MEDICAID [place] Anticipated DC Date: 10-02-2019 Planned Disposition: Inpatient Psych Facility External Planned Provider: FIRST ACCEPTING INPATIENT PSYCHIATRIC FACILITY DCP follow-up note: CM RECEIVED MESSAGE FROM MAXIMILIANO LARA, [facility] CALLED LATE YESTERDAY, PT HAS BEEN DECLINED STATEWIDE AND THE ONLY FACILITY THAT MAY CONSIDER IS [facility]. CM RECEIVED CALL FROM [employer]INTS SCREENER WHO INFORMED CM THAT THEY DECLINED DUE TO PT HAVING A PEG TUBE, THEY WILL NOT ACCEPT PT WITH A PEG TUBE, EVEN IF IT IS NOT USED; THEY ALSO WILL NOT ACCEPT DUE TO PT HAVING DRESSING CHANGES REQUIRED AND THAT PT IS NO LONGER EXPRESSING SUICIDAL INTENT. CM FAXED REFERRAL UPDATE TO [facility]SFER CENTER AT [phone]. [facility] SEEKING INPATIENT TREATMENT FACILITY. PT HAS BEEN DECLINED STATEWIDE WITH [facility] BEING THE ONLY FACILITY THAT MAY CONSIDER PATIENT. Meaghan Sultana, CASE MANAGEMENT Appended by Meaghan Sultana on 10/03/2019 15:47 COIL WRAPPER: CM CALLED [facility] AND SPOKE TO KENNETH AT [facility] CENTER, KENNETH CLARIFIED THAT [facility] DECLINED PT DID EVERY OTHER INPATIENT PSYCHIATRIC FACILITY IN THE [facility] EXCEPT [facility] WHO KEEPS TELLING KENNETH THAT THE BUREAU DIRECTOR IS REVIEWING PT FOR ADMISSION. CM SPOKE TO PT AND HIS AUNT SOLO, , PROVIDED UPDATE. SOLO ASKED THAT CM CALL [facility] FOR POSSIBLE PLACEMENT. CM CALLED [facility] HURTADO AT [phone], LEFT MESSAGE ASKING FOR RETURN CALL. SOLO STATES THAT THE FAMILY HAS NOT ARRANGED ANY TREATMENT AT [facility] OR ANYWHERE ELSE AND STATES THAT PT HAS COMPULSIVE LYING AND ANGER ISSUES WITHOUT PHYSICAL VIOLENCE (JUST VERBAL EXPLOSIIONS). SHE ALSO STATES THAT PT'S DRUG ISSUES TAKE A "BACK SEAT" TO HIS MENTAL ISSUES. ALL PSYCHIATRIC FACILITIES IN [facility] DECLINED PT EXCEPT FOR [facility] WHICH IS STILL UNDER REVIEW. MEAGHAN SULTANA, CASE MANAGEMENT DCP- Discharge Planning Updated by [id number]: Meaghan Sultana on 10/02/19 7:[address] Patient Name: KAREN ALMEIDA Encounter No: [id number] : 1995 Primary Insurance: MEDICAID [place] Anticipated DC Date: 10-02-2019 Planned Disposition: Inpatient Psych Facility External Planned Provider: FIRST ACCEPTING INPATIENT PSYCHIATRIC FACILITY DCP follow-up note: CM REVIEWED CHART, NEW PSYCHIATRIC CONSULT NOTE ENTERED. CM CALLED [facility], PROVIDED REFERRAL INFORMATION [facility] AT [phone]; HOWIE ADVISED THAT THEY HAVE PACKET RECEIVED YESTERDAY. CM FAXED REFERRAL UPDATE TO TRANSFER CENTER AT [phone]. CM SPOKE TO PT IN ROOM WHO IS STILL WILLING FOR INPATIENT PSYCHIATRIC PLACEMENT. PT STATES HIS FAMILY HAS ARRANGED FOR HIM TO GO TO [facility] IN [place] AFTER HIS PEG TUBE IS REMOVED ON 10-23-19. [facility]ENTER WILL BEGIN SEEKING INPATIENT TREATMENT FACILITY. ALVIN Joseph MANAGEMENT DCP- Discharge Planning Updated by [id number]: Meaghan Sultana on 10/01/19 3:[address] Patient Name: KAREN ALMEIDA Encounter No: [id number] : 1995 Primary Insurance: MEDICAID [facility] DC Date: 10-02-2019 Planned Disposition: Inpatient Psych Facility External Planned Provider: FIRST ACCEPTING INPATIENT PSYCHIATRIC FACILITY DCP follow-up note: RENU SPOKE TO DR. THOMSON WHO INFORMED CM THAT PT IS STABLE AND NEEDS INPATIENT PSYCHIATRIC FACILITY TRANSFER. CM SPOKE TO PT WHO IS IN AGREEMENT WITH PLAN. CM CALLED [facility], PROVIDED REFERRAL INFORMATION TO KENNETH AT [phone]; KENNETH ADVISED THAT HE WILL NEED A CURRENT PSYCHIATRIC CONSULT WITHIN 48 HOURS. CM REVIEWED CHART, PSYCHIATRIC CONSULT HAS BEEN RE ORDERED. CM FAXED REFERRAL TO TRANSFER CENTER AT [phone]. [facility] WILL BEGIN SEEKING INPATIENT TREATMENT FACILITY ONCE NEW PSYCHIATRIC CONSULT IS RECEIVED. AVLIN Joseph DCP- Discharge Planning Updated by [id number]: Darline Wallace on 09/26/19 5:[address] CM has been notified regarding inpatient psych placement. CM was waiting until physicians state that he is medically stable for discharge to facility. Nursing is suppose to be checking with surgeon to find if PEG tube can be removed prior to placement. Most psych facilities don't want patients to have any tubes or objects that could potentially be pulled out. CM will continue to follow and assist as needed with discharge planning / needs. DCP- Discharge Planning Updated by [email or web address]: Darline Wallace on 09/03/19 4:[address] Patient Name: KAREN ALMEIDA Admission Status: ER Accout number: [id number] Admission Date: 09-01-2019 : 1995 Admission Diagnosis: Attending: AJITH THOMSON Current LOS: 2 Anticipated DC Date: Planned Disposition: Primary Insurance: UNINSURED DISCOUNT PLAN Discharge Planning Comments: CM called and spoke with patients aunt Kyung Orozco [phone]. CM explained role and obtaining verbal consent. Patient lived with his girlfriend up until about a month ago when they broke up. Since that time patient has just been staying with friends here and there where he is independent with his care. Denies any discharge needs at this time. Patient is currently still on vent at this time.CM will continue to follow and assist as needed with discharge planning / needs. Hospital Carrier: Darline Wallace DCP- Discharge Planning Updated by [id number]: Darline Wallace on 09/01/19 4:[address] Patient is sedated on vent after a suicide attempt. CM unable to evaluate for d/c planning @ this time. No family available at this time. Patient will most likely need inpatient psych placement once able to evaluate and medically stable for discharge. CM will continue to follow and assist as needed with discharge planning / needs. DCPIA - Discharge Planning Initial Assessment Updated by [email or web address]: Darline Wallace on 09/03/19 5:09 pm * Is the patient Alert and Oriented? Yes * PCP BERTO * Pharmacy [facility] [address] * Preadmission Environment Home Alone * ADLs Independent * Equipment None * Verbal permission to speak to the caregivers and representatives has been obtained from the patient. N/A * Community resources currently utilized None * Additional services required to return to the preadmission environment? No * Can the patient safely return to the preadmission environment? Yes * Has this patient been hospitalized within the prior 30 days at any hospital? No Last DP export: 10/06/19 7:19 a Patient Name: KAREN ALMEIDA Page [id number] at 0903 All edits/amendments must be made on the electronic document DICTATION DATE: 10/06/19902 RIVET CATCHER: JACK 10/06/19902 RPT#: [id number] DC DATE:10/04/19 STATUS: DIS IN [place] [id number] [place] [address] END OF REPORT
== END 2019-10-04 22:29 | DRG 4 ==
LOC: D.ER 08:06 → D.ICU 09:25 → D.M2 09-27 10:55
PROVIDERS: Emergency Medicine; Family Medicine; Internal Medicine Interventional Cardiology; Internal Medicine Pulmonary Disease; Surgery; ADMIT Family Medicine; ATTEND Family Medicine
PROC: 0BH17EZ Insertion of Endotracheal Airway into Trachea, Via Natural or Artificial Opening (ICD-10-PCS; principal; 2019-09-01)
PROC: 5A1955Z Respiratory Ventilation, Greater than 96 Consecutive Hours (ICD-10-PCS; 2019-09-01)
PROC: 0B9B8ZZ Drainage of Left Lower Lobe Bronchus, Via Natural or Artificial Opening Endoscopic (ICD-10-PCS; 2019-09-03)
PROC: 0B968ZZ Drainage of Right Lower Lobe Bronchus, Via Natural or Artificial Opening Endoscopic (ICD-10-PCS; 2019-09-03)
PROC: 0BCB8ZZ Extirpation of Matter from Left Lower Lobe Bronchus, Via Natural or Artificial Opening Endoscopic (ICD-10-PCS; 2019-09-05)
PROC: 0BC68ZZ Extirpation of Matter from Right Lower Lobe Bronchus, Via Natural or Artificial Opening Endoscopic (ICD-10-PCS; 2019-09-05)
PROC: 0B9B8ZZ Drainage of Left Lower Lobe Bronchus, Via Natural or Artificial Opening Endoscopic (ICD-10-PCS; 2019-09-07)
PROC: 0B968ZZ Drainage of Right Lower Lobe Bronchus, Via Natural or Artificial Opening Endoscopic (ICD-10-PCS; 2019-09-07)
PROC: 0B9B8ZZ Drainage of Left Lower Lobe Bronchus, Via Natural or Artificial Opening Endoscopic (ICD-10-PCS; 2019-09-09)
PROC: 0B968ZZ Drainage of Right Lower Lobe Bronchus, Via Natural or Artificial Opening Endoscopic (ICD-10-PCS; 2019-09-09)
PROC: 0DB78ZX Excision of Stomach, Pylorus, Via Natural or Artificial Opening Endoscopic, Diagnostic (ICD-10-PCS; 2019-09-12)
PROC: 0B9M8ZX Drainage of Bilateral Lungs, Via Natural or Artificial Opening Endoscopic, Diagnostic (ICD-10-PCS; 2019-09-12)
PROC: 0DH63UZ Insertion of Feeding Device into Stomach, Percutaneous Approach (ICD-10-PCS; 2019-09-12)
PROC: 0B113F4 Bypass Trachea to Cutaneous with Tracheostomy Device, Percutaneous Approach (ICD-10-PCS; 2019-09-12 09:00)
DX: T42.4X2A Poisoning by benzodiazepines, intentional self-harm, initial encounter (principal); J96.01 Acute respiratory failure with hypoxia; G93.41 Metabolic encephalopathy; J69.0 Pneumonitis due to inhalation of food and vomit; J15.6 Pneumonia due to other Gram-negative bacteria; E87.0 Hyperosmolality and hypernatremia; T40.2X2A Poisoning by other opioids, intentional self-harm, initial encounter; T40.5X2A Poisoning by cocaine, intentional self-harm, initial encounter; T40.1X2A Poisoning by heroin, intentional self-harm, initial encounter; T40.7X2A Poisoning by cannabis (derivatives), intentional self-harm, initial encounter; T17.990A Other foreign object in respiratory tract, part unspecified in causing asphyxiation, initial encounter; D64.9 Anemia, unspecified; A49.01 Methicillin susceptible Staphylococcus aureus infection, unspecified site

== ENCOUNTER 2021-03-02 22:44 | Emergency (ER) | payer OTHER ==
[~2021-03-02] VITALS: Ht 182.9 cm; Wt 70.5 kg
[~2021-03-02 22:44] MED LIST changes: +ALBUTEROL SULF8.5 GM INH; +EFFEXOR50 MG PO; +RisperDAL PO
[2021-03-02 22:54] VITALS: BP 131/70; Ht 182.9 cm; Wt 70.5 kg
[2021-03-02] MEDS ORDERED: DICLOFENAC SODI50 MG PO (23:06)
== END 2021-03-02 23:13 | disposition home or self-care (01) ==
LOC: D.ER 22:44
DX: I87.2 Venous insufficiency (chronic) (peripheral) (principal)